=== PATIENT | female | born 1960 | race Asian ===

== ENCOUNTER 2016-09-28 01:03 | Inpatient (IN) | payer MEDICAID ==
[2016-09-28] VITALS (14 sets, daily range): BP systolic 106–157; BP diastolic 49–90; PULSE 60–76; RESP 14–28; O2SAT 95–100
[~2016-09-28] VITALS: Ht 157.5 cm; Wt 45.4 kg
[~2016-09-28 01:03] MED LIST: AMLO10TA3 PO; GABA-502 PO; HYDR-3825 PO; LEVO88TA28 PO; OXYC-474 PO; TOLT2TAB5 PO; VENL-57 PO
--- NOTE | 2016-09-28 01:06 | ED.REPORT ---
HPI-Extremity Problem Lower Date of Service Sep 28, 2016 ED Provider: Ham Guevara MD Patient is a 55 year old female with a history of metastatic colorectal cancer, hypertension, and anxiety who presents to the ED with tense swelling of her left lower extremity after a ground level fall 3 days ago. Patient states that she fell and her sister landed on her leg. Over the past 2 days she developed swelling and increased pain of this leg. The patient reports associated numbness of much of her leg. Patient went to [facility] ED [facility] for work- up and was ultimately sent tp [facility] for concern of compartment syndrome. Ultrasound for DVT was negative. EMS reports that the patient was very restless at [facility], often trying to leave her bed and walk around the department. She is not on any blood thinning medications. She denies fever, chills, chest pain, or shortness of breath. Nursing Notes Stated Complaint: LEG FRACTURE Nursing Notes Reviewed: Yes Allergies: Coded Allergies: No Known Allergies (Verified Allergy, Unknown, 04/22/16) Scheduled Amlodipine (Amlodipine) 10 Mg Tablet 10 MG PO DAILY Levothyroxine (Levoxyl) 88 Mcg Tablet 88 MCG PO DAILY Tolterodine Tartrate (Tolterodine Tartrate) 2 Mg Tablet 2 MG PO BID Venlafaxine ER (Venlafaxine ER) 37.5 Mg Cap.er.24h 225 MG PO BID Scheduled PRN Hydrocodone-Acetaminophen 7.5-325 mg (Hydrocodone-Acetaminophen 7.5-325 mg) 1 Each Tablet 1-2 TABLET PO Q6HRS PRN PRN PRN For Pain Oxycodone (Roxicodone) 5 Mg Tablet 7.5 MG PO Q4H PRN PRN For Pain General Time Seen by MD: 01:04 Chief Complaint Leg injury left Hx Obtained From: Patient, EMS Arrived By: Ambulance Onset Occurred: 2 days ago Symptom Duration: Since onset Caused by: Fall on ground Location: : Leg left Quality: Burning, Painful Severity: Current: Severe Severity: Maximum: Severe Recent Healthcare: Recent doctor visit Similar Sx Previous: No Past Medical History Past Medical History - metastatic colorectal cancer , with metastasis to left lower lobe (patient also reports metastasis to "female organs", but indication in records). Last local oncology note dated 04/22/2016 states plan for irinotecan-based combination therapy. - Glaucoma. - Possible Raynaud's phenomenon. - Hypertension. 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 Mother recently 10/15/2015 Ambulatory Status Independent Review of Systems Constitutional: Denies: Fever Musculoskeletal: Reports: Extremity pain, Extremity swelling Complete sys rev & neg: except as marked. Respiratory: Denies: Shortness of breath Cardiovascular: Denies: Chest pain Physical Exam Initial Vital Signs Vital Signs (First) Date Time Temp Pulse Resp B/P Pulse Ox O2 Delivery O2 Flow Rate FiO2 09/28/16 01:11 36.7 68 18 147/90 95 Initial VS: Reviewed Head / Eyes: Atraumatic, Normocephalic, PERRL ENT: Conjunctiva normal, No scleral icterus Neck: Supple, Full range of motion Upper Extremities: Vascular intact, Neuro intact Neurologic: Alert, Oriented Lower Extremity / Pelvis / MS: Vascular intact Left Leg / Calf: Positive: Neuro deficit present, Swelling present..., Tenderness present... Left lower extremity is tense and tender, including the gastrocnemius muscle and anterior tibial muscle. Anesthetic down to the foot. Distal sensation is lost. Distal pulses are intact. Changes consistent with compartment syndrome. Ankle / Foot: Vascular intact Left Foot: Positive: Neuro deficit present General/Constitutional: Awake, Alert Appearance / Presentation: Positive: Cachectic, Frail, Ill appearing/not toxic (chronically) Oriented but mildly agitated and difficult to orient to the needs of herself and of the units. Continues to try and get off the bed to walk around, picking at her IV. Respiratory / Chest: Breath sounds NL, Breath sounds = bilat, No respiratory distress, No rales, No rhonchi, No wheezing Cardiovascular: Heart rate NL, Regular rhythm, No gallop, No murmurs, No rubs Skin: Warm, Dry Neurologic: Oriented X3, Speech NL Interpretation & Diagnostics ECG Interpretation ECG Interpretation: Sinus rhythm, Rate 68 Nonspecific intraventricular conduction delay NS Borderline ST elevation, anterior leads Time: 01:45 Interpreted by: ED physician X-Ray Chest Interpretation Chest Xray Interpretation: Impression: No acute cardiopulmonary process. View: Portable Interpretation / Wet Read by: Wet read ED physician X-Ray Interpretation Xray Interpretation: Impression: Lateral left tibial table fracture, inferiorly displaced, with left fibula fracture. X-Ray Ordered: Tibia fibula left Interpretation / Wet Read by: Wet read ED physician Re-Eval/Medical Decision Med Decision/Clinical Course 55-year-old with overt compartment syndrome and the tibialis anterior compartment, and apparent posterior compartment swelling as well. There is distal anesthesia resulting also. She is seen promptly by orthopedic surgery and taken to the operating room. Our med on motor for measuring pressures was not operable today, but her palpation exam is unequivocal. Source of Hx: Old records Re-Evaluation/Progress #1: Time of Eval: 01:20 Re-Evaluation/Progress Note: Patient continues to want to leave the bed and has to be constantly reminded not to move. Unable to get pressure reading. Re-Evaluation/Progress #2: Time of Eval: 01:27 Re-Evaluation/Progress Note: Informed the patient of the plan for hospital admission and urgent OR. Patient understands and agrees with this plan. All questions were addressed. Re-Evaluation/Progress #3: Time of Eval: 02:00 Re-Evaluation/Progress Note: Dr. Wu is present in the ED. He will take the patient to the OR. Consultation : Referral / Consult Name: Jomar Wu DO Consulted With: Orthopedic Call Returned at: 01:26 Extension Worker: Will see patient, Agrees with eval, Agrees with plan, Requested OR Note: Spoke with Dr. Wu, orthopedic surgeon, about the patient's case. Unable to get a reading of pressure. He agrees to take the patient to the OR and accepts patient for admission. Counseled Regarding: Diagnosis, Lab results, Need for admission Discharge & Departure Impression: Primary Impression: Compartment syndrome of left lower extremity Encounter type: initial encounter Qualified Code: T79.A22A - Traumatic compartment syndrome of left lower extremity, initial encounter Additional Impression: Tibial plateau fracture, left Encounter type: initial encounter Fracture type: closed Qualified Code: S82.142A - Displaced bicondylar fracture of left tibia, initial encounter for closed fracture Disposition: ADMITTED TO HOSPITAL Discharge Condition All VS Reviewed: Yes Condition: Stable Referrals: Tatyana Rodriguez (PCP) Scribe Attestation Portions of this note were transcribed by Barbie Barrera. I, Dr. Guevara personally performed the history, physical exam and medical decision-making; I reviewed and confirmed the accuracy of the information in the transcribed note. Signed by: Afua Samano, 09/28/2016 0207 copies to: Tatyana Rodriguez Christopher W MD Sep 28, 2016 01:06 Barbie Barrera Sep 28, 2016 01:30
[2016-09-28] MEDS ORDERED: 0.9% Sodium Chloride 1,000 ML IV ONE (01:28)
[2016-09-28] MEDS ORDERED: Lactated Ringer's 1,000 ML IV SCH (02:28)
[2016-09-28] MEDS ORDERED: Lactated Ringer's 500 ML IV PRN (02:28)
[2016-09-28] MEDS ORDERED: HYDROmorphone 1 mg/mL Inj IVPUSH PRN (02:30)
[2016-09-28] MEDS ORDERED: Ondansetron 2 mg/mL 2 mL Inj IVPUSH PRN ×2 (02:30→04:10)
[2016-09-28] MEDS ORDERED: EPHEDrine Sulfate 50 mg/mL Inj IVPUSH PRN (02:30)
[2016-09-28] MEDS ORDERED: MetoCLOpramide 5 mg/mL 2 mL Inj IVPUSH PRN (02:30)
[2016-09-28] MEDS ORDERED: Phenylephrine 10,000 mCg/mL Inj IVPUSH PRN (02:30)
[2016-09-28] MEDS ORDERED: Dexamethasone 4 mg/mL Inj IVPUSH PRN (02:30)
[2016-09-28] MEDS ORDERED: fentaNYL-PF 50 mCg/mL 2 mL Inj IVPUSH PRN (02:30)
--- NOTE | 2016-09-28 02:35 | PCM.HPANE ---
Patient Data Surgeon Admitting Provider:Jomar Wu DO Attending Provider:Jomar Wu DO Primary Care Physician:Tatyana Rodriguez Other Provider:Jessica Milan Anesthesia Reason for Visit Compartment Syndrome L Lower Leg Ht/WT & BMI Height (Feet): 5 Height (Inches): 2 Weight (Kilograms): 48 Body Mass Index Allergies Coded Allergies: No Known Allergies (Verified Allergy, Unknown, 04/22/16) Past Anesthesia History Anesthesia History: Denies:: Abnormal Airway, Anesthesia Reactions, Difficult Intubation, Fam Anesthesia Reaction, Fam Malignant Hypertherm, Malignant Hyperthermia Diabetes History Hx Diabetes?: No MRSA MRSA: No Medications Active Scripts Amlodipine 10 Mg [id number] Mg PO DAILY #30 TABLET Ref 0 Prov:Praful England MD 01/05/16 Reported Medications Oxycodone (Roxicodone)5 Mg Tablet7.5 Mg PO Q4H PRN For Pain Ref 0 04/10/16 Venlafaxine ER 37.5 Mg Cap.er.03d733 Mg PO BID Ref 0 04/10/16 Hydrocodone-Acetaminophen 7.5-325 mg 1 Each Tablet1-2 Tablet PO Q6HRS PRN PRN For Pain Ref 0 03/28/16 Tolterodine Tartrate 2 Mg Tablet2 Mg PO BID 11/21/15 Levothyroxine (Levoxyl)88 Mcg [id number] Mcg PO DAILY 30 Days Ref 0 02/20/15 Gabapentin 300 Mg [id number] Mg PO TID 30 Days Ref 0 02/19/15 History History of ENT Problems?: No HEENT History: Denies:: Abnormal Airway Cataracts Difficult Intubation Dysphagia Hearing Problem Sinus Problem Hx of Heart Problems?: No Cardiovascular History: Positive for:: Edema (LEGS) Hypertension Denies:: AICD Atrial Fibrillation Chest Pain Congestive Heart Failure Irregular Heartbeat Pacemaker Valvular Heart Disease Hx of Respiratory Problem?: No Respiratory History: Denies:: Asthma COPD Cough Dyspnea Hemoptysis Pneumonia Tuberculosis Hx Neurologic Problems?: Yes Neurological History: Positive for:: Dizziness Denies:: Alzheimer's Disease CVA Dementia Headaches Parkinson's Disease Seizures Hx of GI Problems?: Yes Gastrointestinal History: Positive for:: Gastrointestinal Bleeding (Rectal - HX of rectal CA with colon rescection/colostomy) Heartburn Rectal Bleeding Denies:: Cirrhosis Diverticulitis Gastroesphageal Reflux Hepatitis Hiatal Hernia Hx of Problems?: Yes Genitourinary History: Denies:: HX of Hemodialysis Kidney Stones Urinary Tract Infection Female Hx: Denies:: Currently Endometriosis Pelvic Inflammatory Problems with Breasts? Skin History: Positive for:: History Skin Disorders? (HX OF RASHES AND DRYNESS , PERINEAL RASH 05/29 PER MD) Hx Musculoskeletal Problems?: No Musculoskeletal History: Denies:: Back Injury Joint Replacement (Hip and ankle were left alone to heal naturally) Hx of Psycho/Social Problems?: Yes Psycho Social History: Positive for:: Anxiety Hx Depression Suicide Attempt (remote history per [facility]) Denies:: Bipolar Disorder Hx Surgeries?: Yes (colon resection/removal - colostomy) Hx Any Other Health Problems?: Yes Other History: Positive for:: Cancer (Rectal - plan today for a Right lung biopsy) Hospitalization Denies:: Thyroid Disease History Blood Transfusions: Positive for:: Blood Transfusions Denies:: Blood Transfuse Reaction Hx Diabetes: No Hx Alcohol Use: YesHx Substance Use: Yes (inhaled marijuana) Smoking Status: Current Every Day Smoker Have You Smoked inLast 12 mo: Yes Stop/Bang Risk Assessment Category Category 1A: Patient has history of documented sleep apnea, and HAS NOT received any narcotic, sedative or anesthesia administration during this stay. Category 1B: Patient has history of documented sleep apnea, and HAS received any narcotic , sedative or anesthesia administration during this stay Category 2: Patient has SUSPECTED Obstructive Sleep Apnea, and HAS received any narcotic , sedative or anesthesia administration during this stay. Category 3: Patient has SUSPECTED Obstructive Sleep Apnea and HAS NOT received narcotic, sedative or anesthesia administration during this stay. Category 4: Outpatient in Procedural Areas with known sleep apnea or who screen positive for High Risk via the STOP/BANG questionnaire. Exam Exam Vital Signs Vital Signs Date Time Temp Pulse Resp B/P Pulse Ox O2 Delivery O2 Flow Rate FiO2 09/28/16 02:26 36.7 76 18 160/89 98 Room Air 09/28/16 01:11 36.7 68 18 147/90 95 General Appearance: Alert, Oriented X3, Cooperative Lungs: Clear to Auscultation, Clear to Percussion Heart: Exam Unremarkable, Regular Rate/Rhythm Meds/Labs/Diagnostics Admission Meds Current Medications Lorazepam 0.5 mg 0.5 mg ONCE ONCE IVPUSH Last administered on 09/28/16t 01:38 ; Start 09/28/16 at 01:25; Stop 09/28/16 at 01:26; Status DC Sodium Chloride (Normal Saline) 1,000 ml @ 0 mls/hr Q0M ONCE IV Last administered on 09/28/16t 01:26; Start 09/28/16 at 01:28; Stop 09/28/16 at 01:31 ; Status DC Plan Impression Patient chart reviewed, patient interviewed and anesthestic plan with risks, benefits, and alternatives discussed, and informed consent obtained. NPO Status: 07/27 at 2300 Jeffrey Reddy MD Sep 28, 2016 02:35
--- NOTE | 2016-09-28 02:54 | HP ---
[address] [address] HISTORY AND PHYSICAL PATIENT: THO YADAV : 1960 MR#: [id number] ADMIT: 09/28/2016 JOB ID: [id number] CHIEF COMPLAINT: Left leg pain. HISTORY OF PRESENT ILLNESS: This is a 55-year-old female that was a transfer from [facility] for possible compartment syndrome. She states that she was bending over to pick something up about two days ago when her sister fell on her. She had some left knee and lower leg pain at that time, but was able to place some weight onto the left lower extremity. Over the last day, she has noted increasing pain and swelling, and thus presented to [facility] Emergency [facility]. She presented there at 1 p.m. today and states that around 2 p.m. noted even more progressive swelling. She now complains of numbness to most of her left lower leg from the calf down. She also states that her leg feels very tense and painful with any motion to the ankle or toes. Upon presentation to [facility], compartment measurements were attempted to be obtained by the emergency department staff, but the compartment monitor was unable to be utilized. With the clinical examination, the patient's anterior and posterior compartments were extremely tense, with a clinical diagnosis of compartment syndrome. PAST MEDICAL HISTORY: Metastatic colorectal cancer, anxiety, hypertension. PAST SURGICAL HISTORY: Resection of adenocarcinoma with partial colostomy, excision of uterine fibroids, bilateral salpingo-oophorectomy, appendectomy. FAMILY HISTORY: Noncontributory. SOCIAL HISTORY: The patient smokes daily. Denies any alcohol or illicit drug use. MEDICATIONS: Please see the electronic medical record for full list of the patient's medications. ALLERGIES: No known drug allergies. REVIEW OF SYSTEMS: The patient denies any fevers, sweats, chills, chest pain, short of breath nausea, vomiting, diarrhea. She complains mainly of left knee and lower leg pain with numbness as described in history of present illness. PHYSICAL EXAMINATION: General: The patient is mildly agitated and anxious. She is rocking back and forth in the hospital [facility], and is mobilizing at the hip and knee. HEENT: Normocephalic, atraumatic. Extraocular movements intact. Nares patent. Lungs: No audible wheezes. No overt signs of respiratory distress. Neuro: Cranial nerves 2-12 are intact. Extremities: On gross observation of the patient's left lower extremity, the patient demonstrates significant tense compartments both to the anterior and posterior compartments of the lower leg. There is significant tenderness to palpation with pain elicited with passive flexion and extension of the ankle and toes. The patient describes decreased sensation from about the mid calf distally to include the entire foot. The patient does demonstrate palpable dorsalis pedis and mildly palpable posterior tib pulse. There is tenderness to palpation also to the lateral tibial plateau, with a mild palpable effusion. DIAGNOSTIC STUDIES: Two views of the patient's left tib-fib was obtained, demonstrating a minimally displaced lateral tibial plateau split fracture as well as a fibular head fracture. IMPRESSION: 1. Left lateral tibial plateau and proximal fibular fracture. 2. Left leg compartment syndrome. PLAN: Discussed with the patient in length her diagnosis and treatment to be taken back emergently for fasciotomies of the left lower extremity to release the muscles of the anterolateral and both posterior compartments to the lower leg. I discussed with the patient following surgery, she will also have wound VAC in place and the skin will not be able to be closed. She will then require a repeat irrigation and debridement, with possible primary closure a few days following the surgery. She also understands that there is a possibility of also requiring skin grafting in order to close the wounds, but the patient's fracture will be also addressed at one of the definitive closure surgeries. The surgery tonight I explained to the patient is to address the emergent fasciotomies for her compartment syndrome. The patient understood the risks include, but not limited to, neurovascular injury, tendon injury, infection, failure to resolve the patient's preoperative symptoms, stiffness, persistent pain which will require further intervention. The patient had all questions answered. Consent was signed and placed in the chart. CHAMP
[2016-09-28] MEDS ORDERED: Sodium Biphos-Phos 133 mL Enema RECTAL PRN (04:10)
--- NOTE | 2016-09-28 04:11 | PCM.ANEP1 ---
Post Anesthesia Phase 1 PACU Phase 1 Assessment Vital Signs Vital Signs Date Time Temp Pulse Resp B/P Pulse Ox O2 Delivery O2 Flow Rate FiO2 09/28/16 02:26 36.7 76 18 160/89 98 Room Air 09/28/16 01:11 36.7 68 18 147/90 95 Anesthetic Administered: GA Level of Alertness: Sleeping, hard to arouse VICKERS's with Equal Strength: Yes Pain: No Nausea or Vomiting: No Airway Device: Lungs: Clear to Auscultation, Clear to Percussion Dermatome Level: Full Sensation Jeffrey Reddy MD Sep 28, 2016 04:10
--- NOTE | 2016-09-28 04:23 | PCM.ANEP2 ---
Post Anesthesia Evaluation ASA/CMS Post Anesthesia VS in Patient's Normal Range?: Yes Resp Stable; Airway Patent?: Yes CV Function & Hydration Stable: Yes Mental Status Recovered?: Yes Pain control Satisfactory?: Yes N/V Control Satisfactory?: Yes Jeffrey Reddy MD Sep 28, 2016 04:23
[2016-09-28] MEDS ORDERED: Lactated Ringer's 1,000 ML IV ONE (04:49)
--- NOTE | 2016-09-28 05:06 | NUR ---
post op received to room 1011. alert to person. reoriented place. oriented to time. patient keeps asking "why am i here?" "am i at [facility]?" placed on dorene alarm. left leg in saw wrap with knee immobilizer and wound vac. dressing extends to just below the toes. wound vac set at 125 cont suction. sanguinous drainage in container. patient rates pain as a 7 to left leg. fatigued. falls asleep easily. medicated with morphine 1 mg slow iv push. drinking water and juice. colostomy bag intact.
--- NOTE | 2016-09-28 05:21 | OP ---
[address] [address] OPERATIVE REPORT PATIENT: THO YADAV : 1960 MR#: [id number] ADMIT: 09/28/2016 JOB ID: [id number] DATE OF SURGERY: 09/28/2016 PREOPERATIVE DIAGNOSIS(ES): 1. Left lower leg compartment syndrome. 2. Left lateral tibial plateau fracture. POSTOPERATIVE DIAGNOSIS(ES): 1. Left lower leg compartment syndrome. 2. Left lateral tibial plateau fracture. PROCEDURE: 1. Left leg fasciotomies of the anterior, lateral, posterior superficial and posterior deep compartments. 2. Application of a DME wound VAC, with the wound VAC dressing applied to two separate operative wounds measuring each 20 x 5 cm in dimension. SURGEON: Jomar Wu D.O. ANESTHESIA: General. HISTORY: The patient is a 55-year-old female that fell when her sister fell on top of her about two days ago. She had left knee and leg pain that progressively worsened. She starts having increased swelling and numbness to the lower leg. Thus, she presented to [place] emergency department where she was seen and evaluated. While in the emergency department, they noticed progressive swelling and discussed the possibility of her developing compartment syndrome. They tried to have her transported to different hospitals and were unable to make contact, and thus finally were able to refer here to [facility]. Upon presentation, she demonstrated clinical signs of compartment syndrome. I discussed with the patient the risks, benefits, and indications to proceed with fasciotomy with likely application of wound VAC. I did discuss the need for likely repeat surgery in order for closure and possible skin grafting, and also for fixation of the lateral tibial plateau fracture that she also sustained. The patient understood the risks, benefits, and indications, had all questions answered. The consent was signed and placed on the chart. The patient had a palpable dorsalis pedis and trace posterior tib pulse in the emergency department. PROCEDURE IN DETAIL: The patient was brought to the operative room and placed supine on the operative table. Surgical time-out was performed. Everyone in the room was in agreement. After appropriate anesthesia was obtained, a left upper thigh tourniquet was applied. The patient's left foot demonstrated decreased perfusion compared to the contralateral foot. It was mildly dusky, and the pulses were less palpable than they were in the emergency department. Left lower extremity was then prepped and draped in a sterile fashion. The patient's anterior and lateral compartments were approached first with a longitudinal lateral incision measuring approximately 20 cm in length. This was placed along the length of the fibula. The fascia was immediately identified. A transverse incision was first made at the mid aspect of the incision to the fascia in order to identify the intervening septum between the anterior and the lateral compartments. The lateral compartment was then released with the fasciotomy extending both proximal and distal. Demonstrates significant herniation of the muscles from the lateral compartment. Next, the anterior fasciotomy was also performed in a similar fashion, resulting in an H-shape fasciotomy, decompressing both the anterior and lateral compartments. Again, the anterior muscles easily herniated from the fascia. The muscles were stimulated with electrocautery and demonstrated to be viable. The consistency and color was red. There was only some small tenuous areas to the anterior compartment that were mildly devitalized, but this was left to declare itself for possible debridement at one of her future surgeries. The anterior and lateral compartments were then compressible following the fasciotomies. Attention was then turned towards the medial aspect of the tibia in order to decompress the posterior superficial and deep compartments. A longitudinal incision, measuring 20 cm in length, was made just 2 cm posterior to the posterior border of the tibia. Dissection was carried down to the fascia. Again, a longitudinal incision was then made and spread proximally and distally utilizing Metzenbaum scissors. A significant amount of muscle herniated from the incision. The muscle in the superficial compartment was found to be viable. It was demonstrated excellent consistency and was able to be stimulated with the electrocautery. The deep posterior compartment was next entered by elevating the posterior muscles off of the posterior aspect of the tibia. The fascia was entered and again a fasciotomy of the deep compartment was then performed. Again, excellent viable tissue was appreciable to the posterior compartment. Copious irrigation was then performed to both operative sites, and wound VAC sponges were then applied with a bridge to the anterior aspect of the skin in order to connect the two operative wounds. Both sponges utilized measured approximately 20 x 5 cm dimension. Excellent seal was then achieved. The patient was placed into a bulky noncompressive dressing and into a knee immobilizer. ESTIMATED BLOOD LOSS: 25 cc. COMPLICATIONS: None. DISPOSITION: The patient tolerated the procedure well. Anesthesia was reversed. The patient was transferred to the PACU for recovery. POSTOPERATIVE PLAN: The patient will be taken likely back to the OR on Thursday for a repeat irrigation and debridement with possible primary closure versus reapplication of a wound VAC, and/or skin grafting. Open reduction and internal fixation of the lateral tibial plateau will also be performed at the definitive closure or grafting surgery, which will take place next week. CHAMP
--- NOTE | 2016-09-28 06:05 | PCM.CHPMED ---
Subjective Date of Service: Sep 28, 2016 Provider requesting consult: Jomar Wu DO Primary Physician: Admitting Physician: Jomar Wu DO Primary Care Physician: Tatyana Rodriguez Attending Physician: Jomar Wu DO Chief Complaint: Chief Complaint: Left leg pain History of Present Illness: 55yoF with PMH remarkable for stage three colorectal adenocarcinoma with partial colostomy who presents with 3 days of left leg pain, swelling, and numbness. Reports from orthopedic surgery state that the patient was bending over to pick something up off the floor when her sister fell on her. The patient reports that she had some left lower extremity pain immediately after the injury however she was able to bare weight on the leg. Today the patient had notably worse pain and swelling and presented to [facility] in [facility]. The patient was transferred to [facility] for compartment syndrome requiring fasciotomy. Prior to being taken to surgery the patient was complaining of numbness with pain made worse with any active movement of the extremity. In the [facility] ED the compartment monitor was unable to be utilized and so given the clinical presentation the patient was diagnosed with compartment syndrome and taken for fasciotomy by orthopedic surgery. Review of Systems: Constitutional: Denies: Chills, Fever, Sweats Eyes: Denies: Pain, Vision Changes ENT: Reports: Throat Pain (after surgery) Cardiovascular: Denies: Chest Pain, SOB on Exertion Respiratory: Denies: Cough, Shortness of Breath Gastrointestinal: Denies: Diarrhea, Nausea, Vomiting Genitourinary: Denies: Dysuria, Hematuria Musculoskeletal: Reports: Ankle Pain, Knee Pain, Swelling Skin: Reports: Redness Neurological: Reports: Difficulty Walking Psychologic: Reports: Anxiety, Depression PMH Past Medical History metastatic stage 3 colorectal adenocarcinoma hypertension anemia hypothyroidism peripheral neuropathy anxiety and depression overactive bladder, stress incontinence chronic pelvic pain Surgical History partial colectomy with colostomy right hip ORIF excision of uterine fibroids bilateral salpingo-oophorectomy appendectomy eye surgery 1965 Home Medications Nortriptyline 10mg daily Amlodipine 10mg Gabapentin 600mg TID Levothyroxine 88mcg daily Venlafaxine 187.5mg daily AM and 37.5mg daily PM Tolterodine 2mg BID Oxycodone 10mg every 4-6 hours Clonazepam 0.5mg BID Vagifem 10mcg intravaginally Acetaminophen 325mg PRN Allergies: Coded Allergies: No Known Allergies (Verified Allergy, Unknown, 04/22/16) Family History Family History patient report no family history of cancer, however [facility] records indicate that her father had cancer Mother had COPD, CHF, DM Social History Hx Alcohol Use: YesHx Substance Use: Yes (inhaled marijuana)Hx Tobacco Use: Yes (6 CIGS/DAY) Smoking Status: Current Every Day Smoker Exam Vital Signs Vital Sign - Last Date Time Temp Pulse Resp B/P Pulse Ox O2 Delivery O2 Flow Rate FiO2 09/28/16 04:15 60 27 115/49 100 Simple Mask 10 09/28/16 04:05 37 Intake and Output 09/27/16 09/27/16 09/28/16 Cumulative From/Thru 15:00 23:00 07:00 09/28/16 01:11 - 09/28/16 02:00 Intake Total 2000 ml 2000 ml Balance 2000 ml 2000 ml Intake IV Total 2000 ml 2000 ml General: Cooperative, Mild Distress, Other (seen in PACU patient is quiet obtunded and sleepy) Head: Normal Eyes: PERRLA, EOMI, Scleral Anicteric Nose: Mucous Membr Moist/[place] Mouth: Mouth Normal, Mucous Membr Moist/[place] Neck: Supple, No Thyromegaly Chest & Lungs: Clear to auscultation & percussion, No adventitious breath sounds Cardiovascular: Regular Rate/Rhythm, Normal S1, Normal S2, No Murmurs/Rubs/ Gallops Pulses: NL carotid, radial, femoral, DP, PT Abdomen: Non-tender, Non-distended, No hepatosplenomegaly, Normoactive bowel tones, Ostomy Genitourinary: [place] Present Musculoskeletal: Other (LLE with bandaging from thigh to ankle with brace and wound vac in place) Extremities: No cyanosis/clubbing/edma bilat, Warm, No Edema Neurological: Cranial Nerves 2-12 Intact Lab and Diagnostics X-Rays, CTs and MRIs Preliminary XRay of LLE shows left lateral tibial plateau fracture and left proximal fibular head fracture Assessment & Plan Assessment 55yoF with PMH remarkable for stage three colorectal adenocarcinoma with partial colostomy who presents with 3 days of left leg pain, swelling, and numbness, currently being treated with emergent fasciotomy for left lower leg compartment syndrome. 1. Acute Left Lower Extremity Compartment Syndrome - emergent fasciotomy and will likely require several more surgeries over the coming days - orthopedic surgery following - Cefazolin 2g q8hrs - pain management Percocet, Morphine, Dilaudid and Fentanyl available per orthopedics 2. acute left lateral tibial plateau fracture - orthopedic surgery following - pain management Percocet, Morphine, Dilaudid and Fentanyl available per orthopedics 3. acute Proximal left fibular head fracture - orthopedic surgery following - pain management Percocet, Morphine, Dilaudid and Fentanyl available per orthopedics 4. History of Stage III colorectal adenocarcinoma - previously treated with neoadjuvant chemoradiation followed by APR and colostomy with additional chemotherapy with FULFOX - continue to follow up with Dr. Esparza as outpatient 5. peripheral neuropathy, chronic - gabapentin 600mg TID - nortriptyline 10mg HS [facility] records indicate may be BID dosing however patient is too sedated to confirm 6. HTN, chronic - Amlodipine 10mg daily 7. Anxiety and Depression, chronic - Effexor 225mg q day - nortriptyline 10mg HS [facility] records indicate may be BID dosing however patient is too sedated to confirm 8 Hypothyroidism, chronic - Levothyroxine 88mcg daily 9. stress incontinence, chronic - nortriptyline 10mg HS [facility] records indicate may be BID dosing however patient is too sedated to confirm - Tolterodine 2mg BID GI: Zofran, Reglan, Phenergan available PRN Bowel Regimen - Dulcolax, Miralax, Senna, Fleets available PRN DVT prophylaxis : Lovenox 40mg SQ daily Disposition: Patient was admitted to the orthopedic team with likely length of stay greater than 2 midnights. Patient will likely need SNF placement for extensive rehabilitation. Problems: Pain Evaluation: Adequate Pain Control GI Prophylaxis: H2 guero VTE Prophylaxis Indicated: Meets Criteria for Anticoag Therapy VTE Prophylaxis: Sub-Q Enoxaparin Attending Statement The patient was seen and examined together with house staff on 09/28/2016 and I agree with the history, exam and plan as outlined in the note above. SILVERIO MELGAR DO Sep 28, 2016 05:24 Breonna Tyler DO Sep 28, 2016 06:18
--- NOTE | 2016-09-28 06:27 | NUR ---
med rec - teddy patient unclear about medications. plan to fax [employer] gold run for list patient states she has a green pol form on the fridge at home. placed a request for family to bring in on white board. Addendum: 09/28/16 at 1203 by LENORE SERRANO RN MED REC [place] faxed request in [place]. [facility] is closed at this time. Follow-up tomorrow.
--- NOTE | 2016-09-28 07:35 | DRSVH ---
PROCEDURE: X-RAY LEFT TIBIA/FIBULA, TWO VIEWS ([id number]) INDICATIONS: compartment syndrome after fall TECHNIQUE: 2 views of the tibia and fibula were acquired. COMPARISON: None. FINDINGS: Bones: Mildly displaced fracture of the lateral tibial plateau is present, with articular surface ext ension to the knee joint. Soft tissues: No suspicious soft tissue calcifications or masses. IMPRESSION: Lateral tibial plateau fracture. Dictated by: Lety Hartmann M.D. on 09/28/2016 at 7:32 Approved by: Lety Hartmann M.D. on 09/28/2016 at 7:33
--- NOTE | 2016-09-28 07:36 | DRSVH ---
PROCEDURE: X-RAY CHEST ONE VIEW, PORTABLE ([id number]) INDICATIONS: compartment syndrome after fall TECHNIQUE: One view of the chest was acquired. COMPARISON: [facility], CR, XR CHEST 1VW (PORTABLE), 04/22/2016, 14:05. [facility], CR, XR CHEST 1VW (PORTABLE), 04/22/2016, 11:58. FINDINGS: Surgical changes and devices: None. Lungs and pleura: No pleural effusions or pneumothorax. Lungs are clear. Mediastinum: Mediastinal contours appear normal. Heart size is normal. Bones and chest wall: No suspicious bony lesions. Overlying soft tissues appear unremarkable. IMPRESSION: No acute process. Dictated by: Lety Hartmann M.D. on 09/28/2016 at 7:33 Approved by: Lety Hartmann M.D. on 09/28/2016 at 7:34
[2016-09-28] MEDS ORDERED: 0.9% Sodium Chloride 250 ML ONE (07:57)
[2016-09-28] MEDS: Sodium Chloride LOK Flush 10 mL Syringe IV SCH ×3 (08:06→23:33)
[2016-09-28] MEDS: CeFAZolin Inj 2 GM in IV Premix 1 EACH IV SCH ×2 (08:06→15:17)
[2016-09-28] MEDS: Venlafaxine XR 75 mg ER24 Capsule PO SCH (08:07)
[2016-09-28] MEDS: Tolterodine ER 2 mg ER24 Capsule PO SCH ×2 (08:07→21:12)
[2016-09-28] MEDS ORDERED: Influenza (Adult) Vaccine 0.5 mL Syringe IM ONE (08:30)
[2016-09-28] MEDS: oxyCODONE-Acetamin 5-325 mg Tablet PO PRN ×5 (08:31→23:32)
[2016-09-28] MEDS: Senna-Docusate 8.6-50 mg Tablet PO SCH ×2 (08:31→21:12)
[2016-09-28 09:08] LABS: BASOPHILS % (AUTO) 0.3 % (0-3); EOSINOPHILS % (AUTO) 0.6 % (0-5); MONOCYTES % (AUTO) 7.9 % (4-12); Mean Corpuscular Hemoglobin 32.7 pg (27.0-35.0); NEUTROPHILS % (AUTO) 81.9 % (40-74); Platelet Count 247 bil/L (150-400)
--- NOTE | 2016-09-28 09:34 | DRSVH ---
PROCEDURE: CT KNEE LEFT W/O CONTRAST ([id number]) INDICATIONS: tibial plateau fracture TECHNIQUE: Noncontrast 1-1.5 mm axial sections acquired from the mid-patella to the proximal tibia, with coronal and sagittal reformats. COMPARISON: [facility], CR, XR TIBIA FIBULA 2VW LT, 09/28/2016, 1:24. FINDINGS: Image quality: Excellent. Bones: There is a comminuted moderately displaced fracture of the lateral tibial plateau, predominant ly posteriorly with extension to the tibial spines anteriorly and posteriorly. There is mild angulati on of the posterior aspect of the lateral tibial plateau, with roughly 3-4 mm of depression of the la teral tibial plateau. There is a mildly displaced comminuted fibular head fracture. Soft tissues: Soft tissue gas is present both medially and laterally, indicating an open fracture. A knee joint effusion is present. IMPRESSION: 1. Tibial plateau fracture as above. 2. Fibular head fracture. 3. Knee joint effusion. Dictated by: Lety Hartmann M.D. on 09/28/2016 at 9:30 Approved by: Lety Hartmann M.D. on 09/28/2016 at 9:33
[2016-09-28] MEDS ORDERED: Propofol 10,000 mCg/mL 20 mL Inj ONE (11:17)
[2016-09-28] MEDS ORDERED: fentaNYL-PF 50 mCg/mL 2 mL Inj ONE (11:24)
[2016-09-28] MEDS ORDERED: Ondansetron 2 mg/mL 2 mL Inj ONE (11:26)
--- NOTE | 2016-09-28 11:47 | PCM.PNORTH ---
Subjective Date of Service: Sep 28, 2016 Visit Information: Reason for Visit Compartment Syndrome L Lower Leg Surgery/Surgery Date Post-Op Day # Date of Admission: Sep 28, 2016 at 01:51 Hospital Day # Subjective Pt s/e, states that pain has improved significantly since the surgery this AM. Still has numbness to the foot but states that she has a history of peripheral neuropathy. Objective Exam Objective Gen - alert, NAD Ext - wound vac intact to left lower extremity 09/01 the cannister of the vac is full with serosanguinous d/c Seal intact Improved circulation to the foot and toes with cap repill 2.5sec except for great toe which is a little more sluggish +PF/DF ankle without difficulty Vital Signs and I/O Vital Sign - Last Date Time Temp Pulse Resp B/P Pulse Ox O2 Delivery O2 Flow Rate FiO2 09/28/16 09:06 72 16 96 Room Air 09/28/16 08:26 36.4 145/73 09/28/16 04:26 10 Intake and Output 09/27/16 09/27/16 09/28/16 Cumulative From/Thru 15:00 23:00 07:00 09/28/16 01:11 - 09/28/16 06:12 Intake Total 2300 ml 2300 ml Output Total 20 ml 20 ml Balance 2280 ml 2280 ml Intake IV Total 2300 ml 2300 ml Output Urine Total 20 ml 20 ml Lab & Micro Results Laboratory Tests Test 09/28/16 08:55 White Blood Count 10.2th/mm3 (3.8-10.1) Red Blood Count 3.42mil/mm3 (3.90-5.20) Hemoglobin 11.2g/dL (12.0-15.6) Hematocrit 31.8% (35.0-46.0) Mean Corpuscular Volume 93.0fL (81-100) Mean Corpuscular Hemoglobin 32.7pg (27.0-35.0) Mean Corpuscular Hemoglobin Concent 35.2% (32.0-37.0) Red Cell Distribution Width 12.3% (12.3-15.4) Platelet Count 247bil/L (150-400) Neutrophils (%) (Auto) 81.9% (40-74) Lymphocytes (%) (Auto) 8.9% (14-46) Monocytes (%) (Auto) 7.9% (4-12) Eosinophils (%) (Auto) 0.6% (0-5) Basophils (%) (Auto) 0.3% (0-3) Prothrombin Time 10.7sec (8.1-12.5) Prothromb Time International Ratio 1.00ratio Activated Partial Thromboplast Time 25.8sec (22.8-33.0) Sodium Level 141mEq/L (134-144) Potassium Level 4.2mEq/L (3.5-5.2) Chloride Level 102mEq/L (97-108) Carbon Dioxide Level 24mmol/L (18-29) Blood Urea Nitrogen 17mg/dL (6-24) Creatinine 0.74mg/dL (0.57-1.00) Estimat Glomerular Filtration Rate 116mL/min (>59) Glucose Level 163mg/dL (60-99) Calcium Level 8.5mg/dL (8.5-10.1) Total Bilirubin 0.3mg/dL (0.0-1.2) Aspartate Amino Transf (AST/SGOT) 39U/L (0-50) Alanine Aminotransferase (ALT/SGPT) 15U/L (0-32) Alkaline Phosphatase 62U/L (25-150) Total Creatine Kinase 2291U/L (21-215) Total Protein 6.1g/dL (6.4-8.4) Albumin 3.8g/dL (3.4-5.0) Result Diagram: 09/28/1685409/28/16854 SURGICAL WOUND : Drain Location Body Site: LEG Wound Drainage Type: Wound Vac Assessment & Plan Impression 1) POD#1 s/p left leg fasciotomies 2) Left leg compartment syndrome 3) Left lateral tibial plateau fracture Problems: Plan 1) Discussed R/B/A/I with patient for future surgeries as well as plan for continued treatment -To OR thursday afternoon for repeat I/D and partial closure with reapplication of wound vac -To OR for repeat I/D and stsg to any remaining open areas as well as ORIF of left lateral tibial plateau Consent for thursday surgery signed and placed on chart after all questions answered 2) NWB L LE 3) D/C planning as pt will need wound vac for 5 days after stsg is performed VTE Prophylaxis: Sub-Q Enoxaparin Jomar Wu DO Sep 28, 2016 11:47
--- NOTE | 2016-09-28 15:35 | NUR ---
POST-OP PROGRESS Percocet 1 tab PO has been effective for pain control. Patient stated that her pain is 0/10 at rest after pain medication administration. Tolerating liquids PO and her diet fairly. Denies nausea. No emesis noted. Denies SOB. Woundvac is CDI and functioning without any problems. Sero-sanguinous output noted. LLE in a knee immobilizer. IFC intact and draining to yellow colored UO. Patient is alert and oriented to person, place and time but has periods of forgetfulness/confusion. Confusion is present on admit. Per her family patient can be forgetful. She has been using her call light appropriately and has not attempted to get OOB on her own. Numbness noted on her toes, which was present on admit. Per patient she also has peripheral neuropathy. Capillary refill WNL, sluggish on the great toe. Ortho is aware (Pls. refer to Ortho notes). + DP pulse via Doppler. Care continues. Addendum: 09/28/16 at 1835 by LENORE SERRANO RN WOUNDVAC OUTPUT Unable to accurately measure woudvac output for this shift. Woundvac output is 350 ml since arrival to the floor yesterday.
[2016-09-28] MEDS: hydrOXYzine Pamoate 25 mg Capsule PO PRN (23:32)
[2016-09-29 00:29] VITALS: BP 132/67; PULSE 75; RESP 20; O2SAT 100
[2016-09-29] MEDS: oxyCODONE-Acetamin 5-325 mg Tablet PO PRN ×5 (02:56→22:23)
[2016-09-29 05:30] VITALS: BP 111/65; PULSE 73; RESP 16; O2SAT 95
--- NOTE | 2016-09-29 05:39 | NUR ---
Pain / Circulation Pain well controlled with Percocet prn; pt states pain is low until attempt made to move leg. Pain is increased with passive stretch to ankle, voluntary movement of foot is limited. Pulse strong and palpable, cap refill brisk, toes warm. Hourly rounding ongoing.
[2016-09-29 06:11] LABS: BASOPHILS % (AUTO) 0.5 % (0-3); EOSINOPHILS % (AUTO) 2.4 % (0-5); MONOCYTES % (AUTO) 7.7 % (4-12); Mean Corpuscular Volume 95.6 fL (81-100); NEUTROPHILS % (AUTO) 76.7 % (40-74); Platelet Count 219 bil/L (150-400)
[2016-09-29] MEDS: hydrOXYzine Pamoate 25 mg Capsule PO PRN ×4 (06:39→22:21)
[2016-09-29 07:59] VITALS: BP 107/64; PULSE 81; RESP 16; O2SAT 99
[2016-09-29] MEDS: Tolterodine ER 2 mg ER24 Capsule PO SCH ×2 (08:00→21:22)
[2016-09-29] MEDS: Venlafaxine XR 75 mg ER24 Capsule PO SCH (08:00)
--- NOTE | 2016-09-29 08:00 | PCM.PNORTH ---
Subjective Date of Service: Sep 29, 2016 Visit Information: Reason for Visit Compartment Syndrome L Lower Leg Surgery/Surgery Date Post-Op Day # Date of Admission: Sep 28, 2016 at 01:51 Hospital Day # Subjective Found patient awake and alert and well positioned in bed with no significant complaints of pain. Patient describes a ground-level fall at her home on 2016 at which time her sister tripped over her and fell on top of her causing her leg injury. Patient presented to the ED with complaints of swelling, tightness and pain at the left lower extremity. Patient states she is under treatment with chemotherapy and has quotes chemo brain" with some difficulty in understanding and comprehending. We have discussed this morning that she has 2 more planned returns to the operating room the first of which will be a repeat I &D of the left leg with partial closure and wound VAC placement on 09/30/2016 and then the second OR planned for closure with skin graft and ORIF of the tibial plateau fracture on 10/02/2016. Patient is pleasant and receptive to this treatment. Postop General: No Complaints, No Shortness of Breath, No Chest Pain Pain Management: PO, IV Push Objective Exam Objective Orientation: Alert and oriented 3 and pleasant. Dressing: Interoperative dressing is clean dry and intact. Wound: Wound is not observed today. Compartments: Compartments at thigh appears soft and nontender. Lower extremity compartments appear soft with wound VAC and dressing in place. Mobility/sensation: Patient does have toe wiggle and sensation at left lower extremity but reports this is reduced from her function and sensation at the left lower extremity prior to her ground-level fall with subsequent compartment syndrome. Patient also reports some previous peripheral neuropathy of undescribed origin. Abduction wedge: Absent VAL hose: Absent Mcpherson: Present and working Drain: Wound VAC in place and working at the left lower extremity Gait: No gait with physical therapy and as of this time. Vital Signs and I/O Vital Sign - Last Date Time Temp Pulse Resp B/P Pulse Ox O2 Delivery O2 Flow Rate FiO2 09/29/16 05:30 37.0 73 16 111/65 95 Room Air 09/28/16 04:26 10 Intake and Output 09/28/16 09/28/16 09/29/16 Cumulative From/Thru 15:00 23:00 07:00 09/28/16 01:11 - 09/29/16 05:30 Intake Total 758 ml 800 ml 3858 ml Output Total 1575 ml 650 ml 2245 ml Balance -817 ml 150 ml 1613 ml Intake Oral 618 ml 800 ml 1418 ml IV Total 140 ml 2440 ml Output Urine Total 1225 ml 650 ml 1895 ml Stool Total 0 ml 0 ml Drainage Total 350 ml 350 ml # Bowel Movements 0 0 Lab & Micro Results Laboratory Tests Test 09/28/16 08:55 09/29/16 05:33 White Blood Count 10.2th/mm3 (3.8-10.1) 5.5th/mm3 (3.8-10.1) Red Blood Count 3.42mil/mm3 (3.90-5.20) 3.41mil/mm3 (3.90-5.20) Hemoglobin 11.2g/dL (12.0-15.6) 10.9g/dL (12.0-15.6) Hematocrit 31.8% (35.0-46.0) 32.6% (35.0-46.0) Mean Corpuscular Volume 93.0fL (81-100) 95.6fL (81-100) Mean Corpuscular Hemoglobin 32.7pg (27.0-35.0) 32.0pg (27.0-35.0) Mean Corpuscular Hemoglobin Concent 35.2% (32.0-37.0) 33.4% (32.0-37.0) Red Cell Distribution Width 12.3% (12.3-15.4) 12.5% (12.3-15.4) Platelet Count 247bil/L (150-400) 219bil/L (150-400) Neutrophils (%) (Auto) 81.9% (40-74) 76.7% (40-74) Lymphocytes (%) (Auto) 8.9% (14-46) 12.5% (14-46) Monocytes (%) (Auto) 7.9% (4-12) 7.7% (4-12) Eosinophils (%) (Auto) 0.6% (0-5) 2.4% (0-5) Basophils (%) (Auto) 0.3% (0-3) 0.5% (0-3) Prothrombin Time 10.7sec (8.1-12.5) Prothromb Time International Ratio 1.00ratio Activated Partial Thromboplast Time 25.8sec (22.8-33.0) Sodium Level 141mEq/L (134-144) 143mEq/L (134-144) Potassium Level 4.2mEq/L (3.5-5.2) 4.0mEq/L (3.5-5.2) Chloride Level 102mEq/L (97-108) 102mEq/L (97-108) Carbon Dioxide Level 24mmol/L (18-29) 29mmol/L (18-29) Blood Urea Nitrogen 17mg/dL (6-24) 13mg/dL (6-24) Creatinine 0.74mg/dL (0.57-1.00) 0.68mg/dL (0.57-1.00) Estimat Glomerular Filtration Rate 116mL/min (>59) 128mL/min (>59) Glucose Level 163mg/dL (60-99) 102mg/dL (60-99) Calcium Level 8.5mg/dL (8.5-10.1) 8.4mg/dL (8.5-10.1) Total Bilirubin 0.3mg/dL (0.0-1.2) Aspartate Amino Transf (AST/SGOT) 39U/L (0-50) Alanine Aminotransferase (ALT/SGPT) 15U/L (0-32) Alkaline Phosphatase 62U/L (25-150) Total Creatine Kinase 2291U/L (21-215) 9414U/L (21-215) Total Protein 6.1g/dL (6.4-8.4) Albumin 3.8g/dL (3.4-5.0) Result Diagram: 09/29/1653209/29/16532 General Appearance: Alert, Oriented X3, Cooperative, No Acute Distress Extremities: No Compartment Syndrom Noted (patient recovering from compartment syndrome with fasciotomies performed on 09/28/2016), Thigh & Calf Soft/Nontender Postop Sensory Motor: Distal Motor Intact (patient reports distal motor test this morning reveals some decrease in motor function at the left lower extremity per her baseline), Movement in Toes (patient reports this morning that on testing she notices a decrease in her mobility at the left lower extremity distally in the toes per her baseline), Distal Sensation Intact ( patient notes this morning that she has decrease in sensation at the left lower extremity toes per her normal baseline.) SURGICAL WOUND : Drain Location Body Site: LOWER LEG Wound Drainage Type: Wound Vac Catheters: Urethral 2 Way Mcpherson Assessment & Plan Impression Patient is a 55-year-old female who suffered a ground-level fall at her home on 09/28/2016 and at the same as her sister fell on top of her causing her left tibial plateau fracture with subsequent compartment syndrome. Patient is currently under treatment with chemotherapy and states she has difficulty comprehending certain things. Nursing staff describes "chemo brain". Patient has undergone a left lower extremity fasciotomy on 09/28/2016 and has 2 returns to the operating room planned for Thursday and of this week. Problems: Plan Postop day # 1 from left lower extremity fasciotomy performed on 09/28/[address] Jomar Wu. This was secondary to compartment syndrome which was secondary to left tibial plateau fracture suffered on 09/28/2016. Weight bearing status: Nonweightbearing bilaterally at this time. Mobility aid: None Immobilization: Left knee immobilizer maintained on in place at all times. Precautions: Strict nonweightbearing at the left lower extremity with elevation of the leg if possible Physical therapy: No physical therapy or occupational therapy is ordered as of this time per Dr. Jomar Wu. Pain control: Maintain current pain control as needed. DVT prophylaxis: SCDs at the right lower extremity with Lovenox 40 mg subcutaneous daily. Wound care: Keep wound and dressing clean dry and intact Infectious DZ: None Mcpherson: Present and working Dressing: Interoperative dressing is clean dry and intact Drain: Wound VAC in place at left lower extremity Abduction wedge: None VAL hose: None Nursing communication: Patient should remain nothing by mouth after midnight tonight on 09/29/2016. 2-week follow-up: TBD 6-week follow-up: TBD Discharge plan: TBD VTE Prophylaxis: Sub-Q Enoxaparin (40 mg subcutaneous daily.), SCDs (SCD and right lower extremity.) Krish Aguillon PA-C Sep 29, 2016 08:00
[2016-09-29] MEDS: Sodium Chloride LOK Flush 10 mL Syringe IV SCH ×2 (08:01→17:03)
[2016-09-29] MEDS: Polyethylene Glycol (PEG) 17 Gm Powder PO PRN (08:01)
[2016-09-29] MEDS: Senna-Docusate 8.6-50 mg Tablet PO SCH ×2 (08:12→21:22)
--- NOTE | 2016-09-29 10:01 | NUR ---
Social Work Screen Note: EMR reviewed. Patient is a 55 year old female admitted on 09/28/16 for compartment syndrome of left lower leg. Patient payer as [facility] Medicaid. Patient PCP as MD Rodriguez. Patient resides in [facility]. Emergency contact listed as sister Rosita, . Patient has wound vac and to undergo surgery for skin graft and ORIF of tibial plateau on Thursday or . Therapy ordered. SW to follow up following surgery to further assess needs for wound vac care and functional mobilities following therapy. SW to follow. PLAN: Possible HHC for wound vac management vs SNF, pending further surgery and therapy eval. SW will continue to follow to finalize discharge needs. David MARTINEZ
[2016-09-29] MEDS ORDERED: HYDR-656 PO (10:11)
[2016-09-29] MEDS ORDERED: CLON1TAB PO (10:11)
[2016-09-29] MEDS ORDERED: AMLO5TAB2 PO (10:33)
--- NOTE | 2016-09-29 11:33 | NUR ---
PT NOTE-- PT order received but patient scheduled for surgery tomorrow and ORIF on . Ortho progress note dated today states no PT/OT per Dr. Wu. Will await PT orders after ORIF on prior to initiating PT.
[2016-09-29 14:17] VITALS: BP 102/57; PULSE 80; RESP 16; O2SAT 99
--- NOTE | 2016-09-29 14:44 | NUR ---
spiritual care: routine lengthy conversational visit. pt explored insights about her medical condition and larger personal history/olinda/adventism history. Pt reflected on difficulties she's recently experienced including cancer treatment and ongoing bone weakness. She connected her current surgery needs to cancer and self blame, although she also described a new-found spirituality and connection with a jainism advent. Pt described her recent yazdanism as a source of hopefulness and emotional/spiritual health. pt agreeable for devotional/scripture material to explore more. Prayer.
--- NOTE | 2016-09-29 16:01 | NUR ---
MED REC/RADIATION Med rec received from [facility] in [place]. Med rec updated per the information that was obtained via [facility]. [facility] pharmacy called to verify if patient fills any meds there. Per Leonarda she has not filled anything there since 2015. Patient is scheduled for a shrink wrap-SVRT treatment today in [facility]. On hold at this time. Dr. Gerard and Krish Aguillon, PAC was made aware of this.
[2016-09-29 17:05] VITALS: BP 111/70; PULSE 84; RESP 16; O2SAT 100
--- NOTE | 2016-09-29 17:20 | NUR ---
POD1 Percocet 2 tabs PO and Vistaril 25 mg PO has been adequate for pain control. Patient rated her pain as 0/10 after her pain medication. Tolerating liquids PO and her diet well. Denies nausea. No emesis noted. Denies SOB. BR at this time. Dressing remains CDI. Woundvac is functioning without any issues noted. Immobilizer is in place. IFC is intact and draining to jermaine colored UO. Care continues.
--- NOTE | 2016-09-29 17:45 | PCM.PNMED ---
Subjective Date of Service Sep 29, 2016 Subjective reports some left leg pain but otherwise denies any new issues/complaints Exam Vital Signs Vital Sign - Last Date Time Temp Pulse Resp B/P Pulse Ox O2 Delivery O2 Flow Rate FiO2 09/29/16 17:05 36.7 84 16 111/70 100 Room Air 09/28/16 04:26 10 Intake and Output 09/28/16 09/28/16 09/29/16 Cumulative From/Thru 15:00 23:00 07:00 09/28/16 01:11 - 09/29/16 05:30 Intake Total 758 ml 800 ml 3858 ml Output Total 1575 ml 650 ml 2245 ml Balance -817 ml 150 ml 1613 ml Intake Oral 618 ml 800 ml 1418 ml IV Total 140 ml 2440 ml Output Urine Total 1225 ml 650 ml 1895 ml Stool Total 0 ml 0 ml Drainage Total 350 ml 350 ml # Bowel Movements 0 0 General: Alert, Cooperative, No Acute Distress Eyes: Scleral Anicteric Mouth: Mucous Membr Moist/[place] Neck: Supple Chest & Lungs: Chest Wall Normal, Clear to auscultation & percussion Cardiovascular: Regular Rate/Rhythm Abdomen: Non-tender, Non-distended, Normoactive bowel tones, Soft Extremities: Other (left leg with wound vac) Neurological: Grossly Neurologically Intact, Normal Speech IVs and Medications Medications Reviewed: Medications were reviewed in detail Lab and Diagnostics Result Diagram: 09/29/1653209/29/16 0533 Assessment & Plan 55yoF with PMH remarkable for stage three colorectal adenocarcinoma with partial colostomy who presents with 3 days of left leg pain, swelling, and numbness, currently being treated with emergent fasciotomy for left lower leg compartment syndrome. 1. Acute Left Lower Extremity Compartment Syndrome secondary to left tibial plateau fx - s/p left lower extremity fasciotomy on 09/28/2016 - has 2 returns to the operating room planned for Thursday and of this week. - on wound vac - further management per primary ortho team 2. acute left lateral tibial plateau and Proximal left fibular head fracture - further management per ortho - c/w supportive care 3. History of Stage III colorectal adenocarcinoma - previously treated with neoadjuvant chemoradiation followed by APR and colostomy with additional chemotherapy with FULFOX - currently undergoing radiation therapy. Radiation oncologist is Dr. Bolivar ( ext [phone]). Try to contact and update tomorrow (I wasn't able to connect today) 4. peripheral neuropathy, chronic - gabapentin 600mg TID - nortriptyline 10mg HS [facility] records indicate may be BID dosing however patient is too sedated to confirm 7. HTN, chronic - Amlodipine 10mg daily 8. Anxiety and Depression, chronic - Effexor 225mg q day - nortriptyline 10mg HS [facility] records indicate may be BID dosing however patient is too sedated to confirm 9. Hypothyroidism, chronic - Levothyroxine 88mcg daily 10. stress incontinence, chronic - nortriptyline 10mg HS [facility] records indicate may be BID dosing however patient is too sedated to confirm - Tolterodine 2mg BID Dispo: per primary ortho team GI Prophylaxis: H2 guero VTE Prophylaxis: Sub-Q Enoxaparin (40 mg subcutaneous daily.), SCDs (SCD and right lower extremity.) VTE Mechanical Devices: Intermittant Pneumatic CD Kai Gerard Sep 29, 2016 17:45
[2016-09-29 19:38] VITALS: BP 107/67; PULSE 78; RESP 20; O2SAT 98
[2016-09-29] MEDS: Magnesium Hydroxide 10 mL Oral Concentration PO PRN (21:23)
[2016-09-30] VITALS (9 sets, daily range): BP systolic 111–160; BP diastolic 66–80; PULSE 59–86; RESP 15–22; O2SAT 97–100
[2016-09-30] MEDS: Sodium Chloride LOK Flush 10 mL Syringe IV SCH ×3 (00:33→16:30)
[2016-09-30] MEDS: Lactated Ringer's 1,000 ML IV SCH ×3 (04:01→18:00)
[2016-09-30] MEDS: hydrOXYzine Pamoate 25 mg Capsule PO PRN ×4 (05:54→22:52)
[2016-09-30] MEDS: oxyCODONE-Acetamin 5-325 mg Tablet PO PRN ×4 (05:55→22:53)
--- NOTE | 2016-09-30 06:38 | NUR ---
Pain / Circulation Pain well controlled with Percocet and Vistaril prn. Pulse strong and palpable, cap refill brisk, toes warm. NPO since midnight for anticipated return to OR today. Hourly rounding ongoing.
[2016-09-30] MEDS ORDERED: fentaNYL-PF 50 mCg/mL 2 mL Inj ONE (08:00)
[2016-09-30] MEDS: Tolterodine ER 2 mg ER24 Capsule PO SCH ×2 (08:30→20:24)
[2016-09-30] MEDS: Senna-Docusate 8.6-50 mg Tablet PO SCH ×2 (08:30→20:24)
[2016-09-30] MEDS: Venlafaxine XR 75 mg ER24 Capsule PO SCH (08:30)
[2016-09-30] MEDS ORDERED: Ondansetron 2 mg/mL 2 mL Inj ONE (11:01)
[2016-09-30] MEDS ORDERED: MetoCLOpramide 5 mg/mL 2 mL Inj ONE (11:01)
[2016-09-30] MEDS ORDERED: Propofol 10,000 mCg/mL 20 mL Inj ONE (11:01)
--- NOTE | 2016-09-30 11:57 | PCM.PNMED ---
Subjective Date of Service Sep 30, 2016 Subjective Patient is resting in bed and has no current complaints. She is scheduled to go back to the OR today. Exam Vital Signs Vital Sign - Last Date Time Temp Pulse Resp B/P Pulse Ox O2 Delivery O2 Flow Rate FiO2 09/30/16 09:48 36.9 81 22 117/71 100 Room Air 09/28/16 04:26 10 Intake and Output 09/29/16 09/29/16 09/30/16 Cumulative From/Thru 15:00 23:00 07:00 09/28/16 01:11 - 09/30/16 06:46 Intake Total 1410 ml 400 ml 5668 ml Output Total 590 ml 1250 ml 4085 ml Balance 820 ml -850 ml 1583 ml Intake Oral 1340 ml 400 ml 3158 ml IV Total 70 ml 2510 ml Output Urine Total 390 ml 1250 ml 3535 ml Stool Total 0 ml 0 ml Drainage Total 200 ml 550 ml # Bowel Movements 0 Exam Constitutional: Appears comfortable and in no acute distress Head: Normocephalic atraumatic Chest: Clear to auscultation Cor: Regular rate and rhythm S1-S2 Abdomen: Soft nontender bowel sounds present Extremities: Left leg is wrapped and splinted,Right leg shows no pedal edema Neuro: Alert and oriented 3, motor strength is intact bilaterally Lab and Diagnostics Laboratory Tests 72 Hours Test 09/28/16 08:55 09/29/16 05:33 White Blood Count 10.2th/mm3 (3.8-10.1) 5.5th/mm3 (3.8-10.1) Red Blood Count 3.42mil/mm3 (3.90-5.20) 3.41mil/mm3 (3.90-5.20) Hemoglobin 11.2g/dL (12.0-15.6) 10.9g/dL (12.0-15.6) Hematocrit 31.8% (35.0-46.0) 32.6% (35.0-46.0) Mean Corpuscular Volume 93.0fL (81-100) 95.6fL (81-100) Mean Corpuscular Hemoglobin 32.7pg (27.0-35.0) 32.0pg (27.0-35.0) Mean Corpuscular Hemoglobin Concent 35.2% (32.0-37.0) 33.4% (32.0-37.0) Red Cell Distribution Width 12.3% (12.3-15.4) 12.5% (12.3-15.4) Platelet Count 247bil/L (150-400) 219bil/L (150-400) Neutrophils (%) (Auto) 81.9% (40-74) 76.7% (40-74) Lymphocytes (%) (Auto) 8.9% (14-46) 12.5% (14-46) Monocytes (%) (Auto) 7.9% (4-12) 7.7% (4-12) Eosinophils (%) (Auto) 0.6% (0-5) 2.4% (0-5) Basophils (%) (Auto) 0.3% (0-3) 0.5% (0-3) Prothrombin Time 10.7sec (8.1-12.5) Prothromb Time International Ratio 1.00ratio Activated Partial Thromboplast Time 25.8sec (22.8-33.0) Sodium Level 141mEq/L (134-144) 143mEq/L (134-144) Potassium Level 4.2mEq/L (3.5-5.2) 4.0mEq/L (3.5-5.2) Chloride Level 102mEq/L (97-108) 102mEq/L (97-108) Carbon Dioxide Level 24mmol/L (18-29) 29mmol/L (18-29) Blood Urea Nitrogen 17mg/dL (6-24) 13mg/dL (6-24) Creatinine 0.74mg/dL (0.57-1.00) 0.68mg/dL (0.57-1.00) Estimat Glomerular Filtration Rate 116mL/min (>59) 128mL/min (>59) Glucose Level 163mg/dL (60-99) 102mg/dL (60-99) Calcium Level 8.5mg/dL (8.5-10.1) 8.4mg/dL (8.5-10.1) Total Bilirubin 0.3mg/dL (0.0-1.2) Aspartate Amino Transf (AST/SGOT) 39U/L (0-50) Alanine Aminotransferase (ALT/SGPT) 15U/L (0-32) Alkaline Phosphatase 62U/L (25-150) Total Creatine Kinase 2291U/L (21-215) 9414U/L (21-215) Total Protein 6.1g/dL (6.4-8.4) Albumin 3.8g/dL (3.4-5.0) Result Diagram: 09/29/1653209/29/16532 X-Rays, CTs and MRIs PROCEDURE: CT KNEE LEFT W/O CONTRAST (10679) INDICATIONS: tibial plateau fracture TECHNIQUE: Noncontrast 1-1.5 mm axial sections acquired from the mid-patella to the proximal tibia, with coronal and sagittal reformats. COMPARISON: [facility], CR, XR TIBIA FIBULA 2VW LT, 09/28/2016, 1: 24. FINDINGS: Image quality: Excellent. Bones: There is a comminuted moderately displaced fracture of the lateral tibial plateau, predominantly posteriorly with extension to the tibial spines anteriorly and posteriorly. There is mild angulation of the posterior aspect of the lateral tibial plateau, with roughly 3-4 mm of depression of the lateral tibial plateau. There is a mildly displaced comminuted fibular head fracture. Soft tissues: Soft tissue gas is present both medially and laterally, indicating an open fracture. A knee joint effusion is present. IMPRESSION: 1. Tibial plateau fracture as above. 2. Fibular head fracture. 3. Knee joint effusion. Dictated by: Lety Hartmann M.D. on 09/28/2016 at 9:30 Approved by: Lety Hartmann M.D. on 09/28/2016 at 9:33 Assessment & Plan 55yoF with PMH remarkable for stage three colorectal adenocarcinoma with partial colostomy who presents with 3 days of left leg pain, swelling, and numbness, currently being treated with emergent fasciotomy for left lower leg compartment syndrome. 1. Acute Left Lower Extremity Compartment Syndrome secondary to left tibial plateau fx - s/p left lower extremity fasciotomy on 09/28/2016 - has 2 returns to the operating room planned for and of this week. - on wound vac - further management per primary ortho team 2. acute left lateral tibial plateau and Proximal left fibular head fracture - further management per ortho - c/w supportive care 3. History of Stage III colorectal adenocarcinoma - previously treated with neoadjuvant chemoradiation followed by APR and colostomy with additional chemotherapy with FULFOX - currently undergoing radiation therapy. Radiation oncologist is Dr. Bolivar ( ext [phone]). Try to contact and update tomorrow (I wasn't able to connect today) 4. peripheral neuropathy, chronic - gabapentin 600mg TID - nortriptyline 10mg HS [facility] records indicate may be BID dosing however patient is too sedated to confirm 7. HTN, chronic - Amlodipine 10mg daily 8. Anxiety and Depression, chronic - Effexor 225mg q day - nortriptyline 10mg HS [facility] records indicate may be BID dosing however patient is too sedated to confirm 9. Hypothyroidism, chronic - Levothyroxine 88mcg daily 10. stress incontinence, chronic - nortriptyline 10mg HS [facility] records indicate may be BID dosing however patient is too sedated to confirm - Tolterodine 2mg BID Dispo: per primary ortho team GI Prophylaxis: H2 guero VTE Prophylaxis: Sub-Q Enoxaparin (40 mg subcutaneous daily.), SCDs (SCD and right lower extremity.) VTE Mechanical Devices: Intermittant Pneumatic CD Time spent 30 minutes Chloe Tolbert MD Sep 30, 2016 11:57
--- NOTE | 2016-09-30 13:25 | NUR ---
NPO Pt is NPO awaiting surgery this afternoon Pt had 10/10 pain this a.m. Primary nurse administered IV push pain medication Pain reassessment 02/07
[2016-09-30] MEDS ORDERED: Lactated Ringer's 1,000 ML IV SCH (15:33)
[2016-09-30] MEDS ORDERED: Lactated Ringer's 500 ML IV PRN (15:33)
--- NOTE | 2016-09-30 15:33 | PCM.HPANE ---
Patient Data Surgeon Admitting Provider:Jomar Wu DO Attending Provider:Jomar Wu DO Primary Care Physician:Tatyana Rodriguez Other Provider:Jessica Milan Anesthesia Reason for Visit Compartment Syndrome L Lower Leg Ht/WT & BMI Height (Feet): 5 Height (Inches): 2.00 Weight (Kilograms): 47.600 Body Mass Index 19.47 Allergies Coded Allergies: No Known Allergies (Verified Allergy, Unknown, 04/22/16) Past Anesthesia History Anesthesia History: Denies:: Abnormal Airway, Anesthesia Reactions, Difficult Intubation, Fam Anesthesia Reaction, Fam Malignant Hypertherm, Malignant Hyperthermia Diabetes History Hx Diabetes?: No MRSA MRSA: No Medications Home Meds Incl Beta Delroy: No Reported Medications Amlodipine 5 Mg Tablet5 Mg PO DAILY HYPERTENSION Ref 0 09/29/16 Clonazepam ODT 1 Mg Tablet1-2 Mg PO HS PRN For Anxiety Ref 0 09/29/16 Venlafaxine ER 37.5 Mg Cap.er.[id number] Mg PO BID Ref 0 04/10/16 Hydrocodone-Acetaminophen 7.5-325 mg 1 Each Tablet1-2 Tablet PO Q6HRS PRN PRN For Pain Ref 0 03/28/16 Levothyroxine (Levoxyl)88 Mcg Sdbort29 Mcg PO DAILY 30 Days Ref 0 02/20/15 Discontinued Reported Medications hydrOXYzine Hcl (HydrOXYzine Hcl)25 Mg [id number] Mg PO HS BLADDER PAIN 09/29/16 Oxycodone (Roxicodone)5 Mg Tablet7.5 Mg PO Q4H PRN For Pain Ref 0 04/10/16 Tolterodine Tartrate 2 Mg Tablet2 Mg PO BID 11/21/15 Gabapentin 300 Mg [id number] Mg PO TID 30 Days Ref 0 02/19/15 Discontinued Scripts Amlodipine 10 Mg Bhghwn21 Mg PO DAILY #30 TABLET Ref 0 Prov:Praful England MD 01/05/16 History History of ENT Problems?: No HEENT History: Denies:: Abnormal Airway Cataracts Difficult Intubation Dysphagia Hearing Problem Sinus Problem Hx of Heart Problems?: Yes Cardiovascular History: Positive for:: Edema (LEGS) Hypertension Denies:: AICD Atrial Fibrillation Chest Pain Congestive Heart Failure Irregular Heartbeat Pacemaker Valvular Heart Disease Hx of Respiratory Problem?: Yes Respiratory History: Denies:: Asthma COPD Cough Dyspnea Hemoptysis Pneumonia Tuberculosis Other Resp Pertinent History: lung cancer Hx Neurologic Problems?: Yes Neurological History: Positive for:: Dizziness Seizures (on seroquel) Denies:: Alzheimer's Disease CVA Dementia Headaches Parkinson's Disease Hx of GI Problems?: Yes Gastrointestinal History: Positive for:: Gastrointestinal Bleeding (Rectal - HX of rectal CA with colon rescection/colostomy) Heartburn Rectal Bleeding Denies:: Cirrhosis Diverticulitis Gastroesphageal Reflux Hepatitis Hiatal Hernia Other GI Pertinent History: has colostomy Hx of Problems?: Yes Genitourinary History: Denies:: HX of Hemodialysis Kidney Stones Urinary Tract Infection Other Pertinent History: bladder leaking Female Hx: Denies:: Currently Endometriosis Pelvic Inflammatory Problems with Breasts? Skin History: Positive for:: History Skin Disorders? (HX OF RASHES AND DRYNESS , PERINEAL RASH 05/29 PER MD) Other Skin Pertinent History: just received wound vac to left leg in surgery Hx Musculoskeletal Problems?: Yes Musculoskeletal History: Positive for:: Musculoskeletal Trauma (fell 2 days ago. ) Denies:: Back Injury Joint Replacement (Hip and ankle were left alone to heal naturally) Hx of Psycho/Social Problems?: Yes Psycho Social History: Positive for:: Anxiety Hx Depression Suicide Attempt (remote history per PMH) Denies:: Bipolar Disorder Hx Surgeries?: Yes (colon resection/removal - colostomy, ) Hx Any Other Health Problems?: Yes Other History: Positive for:: Cancer (rectal) Hospitalization Thyroid Disease (on supplement) History Blood Transfusions: Positive for:: Accept Blood Products? Denies:: Blood Transfuse Reaction Blood Transfusions Hx Diabetes: No Hx Alcohol Use: Yes (one glass wine monthly)Hx Substance Use: Yes (marijuana smoke 3 joints a day) Smoking Status: Current Every Day Smoker Have You Smoked inLast 12 mo: YesApprox How Many Cigarettes/day: 5-7 cigarettes daily Stop/Bang Treated for Sleep Apnea?: No Do You Have a CPAP Machine?: No T-Tired: feel tired, fatigued: No O-Obsered: Observed not breath: No P-Blood Pressure: treated: Yes B- Body Mass Index > 35 kg/m2: No A- Age over 50: Yes N- Neck Large Circumference: No G- Gender Male: No HOLDEN Risk Assessment: Low Risk, <3 Yes Risk Assessment Category Category 1A: Patient has history of documented sleep apnea, and HAS NOT received any narcotic, sedative or anesthesia administration during this stay. Category 1B: Patient has history of documented sleep apnea, and HAS received any narcotic , sedative or anesthesia administration during this stay Category 2: Patient has SUSPECTED Obstructive Sleep Apnea, and HAS received any narcotic , sedative or anesthesia administration during this stay. Category 3: Patient has SUSPECTED Obstructive Sleep Apnea and HAS NOT received narcotic, sedative or anesthesia administration during this stay. Category 4: Outpatient in Procedural Areas with known sleep apnea or who screen positive for High Risk via the STOP/BANG questionnaire. Exam Exam Vital Signs Vital Signs Date Time Temp Pulse Resp B/P Pulse Ox O2 Delivery O2 Flow Rate FiO2 09/30/16 15:06 36.4 69 20 111/66 99 Room Air 09/30/16 09:48 36.9 81 22 117/71 100 Room Air General Appearance: Oriented X3 HEENT/AIRWAY: MP 2 Lungs: Normal Air Movement Heart: Regular Rate/Rhythm Meds/Labs/Diagnostics Admission Meds Current Medications Lactated Ringer's (Lr) 1,000 ml @ 120 mls/hr Q8H20M IV Last administered on 15:11; Start 09/30/16 at 05:00; Stop 09/30/16 at 13:19; Status DC Nicotine (Nicoderm 21 mg/ 24 Hr Patch) 1 patch DAILY TOPICAL Last administered on 09/29/16 22:21; Start 09/29/16 at 21:50 Labs Test 09/28/16 08:55 09/29/16 05:33 Prothrombin Time 10.7sec (8.1-12.5) Prothromb Time International Ratio 1.00ratio Activated Partial Thromboplast Time 25.8sec (22.8-33.0) Total Bilirubin 0.3mg/dL (0.0-1.2) Aspartate Amino Transf (AST/SGOT) 39U/L (0-50) Alanine Aminotransferase (ALT/SGPT) 15U/L (0-32) Alkaline Phosphatase 62U/L (25-150) Total Protein 6.1g/dL (6.4-8.4) Albumin 3.8g/dL (3.4-5.0) White Blood Count 5.5th/mm3 (3.8-10.1) Red Blood Count 3.41mil/mm3 (3.90-5.20) Hemoglobin 10.9g/dL (12.0-15.6) Hematocrit 32.6% (35.0-46.0) Mean Corpuscular Volume 95.6fL (81-100) Mean Corpuscular Hemoglobin 32.0pg (27.0-35.0) Mean Corpuscular Hemoglobin Concent 33.4% (32.0-37.0) Red Cell Distribution Width 12.5% (12.3-15.4) Platelet Count 219bil/L (150-400) Neutrophils (%) (Auto) 76.7% (40-74) Lymphocytes (%) (Auto) 12.5% (14-46) Monocytes (%) (Auto) 7.7% (4-12) Eosinophils (%) (Auto) 2.4% (0-5) Basophils (%) (Auto) 0.5% (0-3) Sodium Level 143mEq/L (134-144) Potassium Level 4.0mEq/L (3.5-5.2) Chloride Level 102mEq/L (97-108) Carbon Dioxide Level 29mmol/L (18-29) Blood Urea Nitrogen 13mg/dL (6-24) Creatinine 0.68mg/dL (0.57-1.00) Estimat Glomerular Filtration Rate 128mL/min (>59) Glucose Level 102mg/dL (60-99) Calcium Level 8.4mg/dL (8.5-10.1) Total Creatine Kinase 9414U/L (21-215) Plan Impression Patient chart reviewed, patient interviewed and anesthestic plan with risks, benefits, and alternatives discussed, and informed consent obtained. NPO Status: 07/27 at 2300 ASA Physical Status: ASA2 Mod Systemic Disease Anesthetic Plan: GA Bene/Risks/Altern/Consents: Yes HP Complete Prior to Induction: Yes Rashaad Culver MD Sep 30, 2016 15:33
[2016-09-30] MEDS ORDERED: Phenylephrine 10,000 mCg/mL Inj IVPUSH PRN (15:35)
[2016-09-30] MEDS ORDERED: Dexamethasone 4 mg/mL Inj IVPUSH PRN (15:35)
[2016-09-30] MEDS ORDERED: EPHEDrine Sulfate 50 mg/mL Inj IVPUSH PRN (15:35)
[2016-09-30] MEDS ORDERED: Ondansetron 2 mg/mL 2 mL Inj IVPUSH PRN (15:35)
[2016-09-30] MEDS ORDERED: MetoCLOpramide 5 mg/mL 2 mL Inj IVPUSH PRN (15:35)
--- NOTE | 2016-09-30 17:11 | NUR ---
spiritual care: follow up visit attempt; pt in surgery, following
--- NOTE | 2016-09-30 17:21 | PCM.ANEP1 ---
Post Anesthesia Phase 1 PACU Phase 1 Assessment Date of Service: Sep 28, 2016 Vital Signs Vital Signs Date Time Temp Pulse Resp B/P Pulse Ox O2 Delivery O2 Flow Rate FiO2 09/30/16 17:13 61 15 132/70 100 Simple Mask 7 09/30/16 17:06 36.6 59 15 124/70 100 Simple Mask 7 09/30/16 15:06 36.4 69 20 111/66 99 Room Air 09/30/16 09:48 36.9 81 22 117/71 100 Room Air Anesthetic Administered: GA Level of Alertness: Awake, talking VICKERS's with Equal Strength: Yes Pain: Yes Pain Scale Score: 9 Nausea or Vomiting: No Airway Device: Lungs: Normal Air Movement Dermatome Level: Full Sensation Rashaad Culver MD Sep 30, 2016 17:21
--- NOTE | 2016-09-30 17:22 | PCM.ANEP2 ---
Post Anesthesia Evaluation ASA/CMS Post Anesthesia VS in Patient's Normal Range?: Yes Resp Stable; Airway Patent?: Yes CV Function & Hydration Stable: Yes Mental Status Recovered?: Yes Pain control Satisfactory?: Yes N/V Control Satisfactory?: Yes Rashaad Culver MD Sep 30, 2016 17:22
[2016-09-30] MEDS: fentaNYL-PF 50 mCg/mL 2 mL Inj IVPUSH PRN ×3 (17:24→17:47)
[2016-09-30] MEDS: HYDROmorphone 1 mg/mL Inj IVPUSH PRN ×3 (17:24→17:48)
--- NOTE | 2016-09-30 19:24 | OP ---
[address] [address] OPERATIVE REPORT PATIENT: THO YADAV : 1960 MR#: [id number] ADMIT: 09/28/2016 JOB ID: [id number] CORRECTED REPORT: DATE OF SURGERY: 09/30/2016 PREOPERATIVE DIAGNOSIS(ES): 1. Status post left lower leg fasciotomy secondary to compartment syndrome. 2. Left lateral tibial plateau fracture. POSTOPERATIVE DIAGNOSIS(ES): 1. Status post left lower leg fasciotomy secondary to compartment syndrome. 2. Left lateral tibial plateau fracture. PROCEDURE: 1. Repeat irrigation and non-excisional debridement of left lower leg. 2. Primary closure of left medial operative wound. 3. Re-application of DME wound VAC to the left lateral wound measuring 20 x 7 cm in dimension. SURGEON: Jomar Wu D.O. ANESTHESIA: General. HISTORY: This patient is a pleasant 55-year-old female that presented over the weekend with compartment syndrome to the left lower leg. She also presented with lateral tibial plateau fracture. She was taken back emergently for fasciotomies to the left lower leg and application of wound VAC to the lower extremity. I discussed with the patient the need to repeat irrigation and re-evaluate the muscle and possible primary closure of one or a portion of both of the incisions and application of a wound VAC. She understood the risks include, but not limited to, neurovascular injury, tendon injury, infection, failure of fixation, stiffness, persistent pain all which may require further intervention. The patient had all questions answered. Consent was signed and placed in the chart. PROCEDURE IN DETAIL: The patient was brought to the operative suite and placed supine on the operating table. Surgical time-out was performed and everyone in the room was in agreement. After appropriate anesthesia was obtained, the wound VAC was then removed. The left lower extremity was then prepped and draped in a sterile fashion. The patient's medial and lateral wounds were irrigated with approximately 3 L of normal saline. The muscle was identified and evaluated on both the medial and lateral wounds consisting of both the superficial and deep posterior compartments as well as the anterior and lateral compartments. The muscles demonstrated excellent color as well as consistency with propensity to bleed and all the muscles were able to be stimulated with electrocautery. No debridement of muscle was necessary. The patient's medial wound was then closed with a combination of 3-0 Monocryl and 3-0 nylon in a vertical mattress fashion. The edges of the medial wound were easily reapproximated without any undue tension. Attention was then turned towards the lateral operative wound. The edges were unable to be approximated without a significant amount of tension, thus decision was made to solely apply a wound VAC to the lateral wound. A wound VAC was applied measuring 20 x 7 cm in dimension, with also utilization of a vessel loop to form a Per's ladder to decrease the size of the wound that required wound VAC. Excellent seal was achieved. The medial incision had a Xeroform and 4x4s applied. The patient was then placed into a bulky dressing and back into a knee immobilizer. ESTIMATED BLOOD LOSS: 25 cc. COMPLICATIONS: None. DISPOSITION: The patient tolerated the procedure well. Anesthesia was reversed. The patient was transferred back to recovery. POSTOPERATIVE PLAN: The patient will return to the OR this and undergo a repeat I and D, and we may be able to further close the edges of the lateral wound but will likely require a split-thickness skin graft from the thigh to the left lateral leg. She will also undergo open reduction and fixation of left tibial plateau fracture at that time. Addenda added by RONY 10/30/16 at 7:46am MTDD
[2016-10-01] MEDS: Sodium Chloride LOK Flush 10 mL Syringe IV SCH ×3 (00:30→16:30)
[2016-10-01] MEDS: CeFAZolin Inj 2 GM in IV Premix 1 EACH IV SCH ×3 (01:41→18:33)
[2016-10-01 02:00] VITALS: BP 106/65; PULSE 67; RESP 20; O2SAT 99
[2016-10-01] MEDS: oxyCODONE-Acetamin 5-325 mg Tablet PO PRN ×5 (04:16→20:04)
[2016-10-01 06:25] VITALS: BP 141/78; PULSE 62; RESP 20; O2SAT 100
--- NOTE | 2016-10-01 06:27 | PCM.PNORTH ---
Subjective Date of Service: Oct 01, 2016 Visit Information: Reason for Visit Compartment Syndrome L Lower Leg Surgery/Surgery Date Post-Op Day # Date of Admission: Sep 28, 2016 at 01:51 Hospital Day # Subjective Found patient sleeping this morning and easily awakened. No complaints of pain at this time. Discussed return to OR on 10/02/2016 for continued closure of wound with possible skin grafting and ORIF of tibial plateau fracture. Patient is pleasant and resigned to her treatment plan at this time. I have encouraged patient to participate in bed exercises to maintain mobility such as flaps and quad sets etc. Postop General: No Complaints, No Shortness of Breath, No Chest Pain Pain Management: PO Objective Exam Objective Orientation: Alert and oriented 3 and pleasant. Dressing: Interoperative dressing is clean dry and intact Immobilization: Knee immobilizer in place the left lower extremity Wound: Wound is not observed today Compartments: Calf and thigh are soft and nontender Mobility/sensation: Mobility and sensation are intact at left lower extremity with patient's report that she has improved sensation today. Abduction wedge: None VAL hose: None Mcpherson: Pleasant and working Wound VAC: Present but no evidence of drawing fluid at this time. We will contact wound care for checkup Drain: None Gait: None Vital Signs and I/O Vital Sign - Last Date Time Temp Pulse Resp B/P Pulse Ox O2 Delivery O2 Flow Rate FiO2 10/01/16 02:00 37.0 67 20 106/65 99 Room Air 09/30/16 17:13 7 Intake and Output 09/30/16 09/30/16 10/01/16 Cumulative From/Thru 15:00 23:00 07:00 09/28/16 01:11 - 10/01/16 05:28 Intake Total 550 ml 6218 ml Output Total 500 ml 4585 ml Balance 50 ml 1633 ml Intake Oral 400 ml 3558 ml IV Total 150 ml 2660 ml Output Urine Total 500 ml 4035 ml Stool Total 0 ml Drainage Total 550 ml # Bowel Movements 0 Result Diagram: 09/29/16 0533 09/29/16 0533 General Appearance: Alert, Oriented X3, Cooperative, No Acute Distress Extremities: No Compartment Syndrom Noted, Thigh & Calf Soft/Nontender Postop Sensory Motor: Distal Motor Intact, Movement in Toes, Distal Sensation Intact SURGICAL WOUND : Drain Location Body Site: leg Wound Drainage Type: Wound Vac Catheters: Urethral 2 Way Mcpherson Assessment & Plan Impression Patient is a 55-year-old female whom is managing quite well considering she has undergone 2 surgical procedures and has been bedbound for several days. She has a good attitude and is pleasant and is well resigned to her treatment at this time. Problems: Plan Postop day # 3 from left lower extremity fasciotomy performed on 09/28/[address] Jomar Wu. Patient has had a return to the OR on 09/30/[address] Jomar Wu for repeat I&D and further closure of her wounds with reapplication of wound VAC. Weight bearing status: Nonweightbearing on the left lower extremity. Mobility aid: Immobilization: Knee immobilizer left lower extremity to be kept on at all times Precautions: Physical therapy: No physical therapy or occupational therapy as ordered at this time per Dr. Jomar Wu. Pain control: Continue by mouth pain medication as needed in the form of Percocet and Vistaril. DVT prophylaxis: Discontinue Lovenox 40 today in anticipation of return to the OR tomorrow on 10/02/2016. Wound care: Keep wound and dressing clean and dry Infectious DZ: None Mcpherson: Present and working Dressing: Interoperative dressing is in place and clean dry and intact. Wound VAC is in place with questionable suction. I have placed ordered today for wound care to check this VAC today and follow patient while she is in house. Drain: None Abduction wedge: None VAL hose: None SCDs: In place and working at right lower extremity Nursing communication: Nursing please keep patient nothing by mouth after midnight tonight with anticipation of return to OR for further procedures on 10/2016. Nursing please hold Lovenox dosing today in anticipation of return to OR on 10/02/2016. 2-week follow-up: TBD 6-week follow-up: TBD Plan: Patient will return to the OR tomorrow on 10/02/[address] Jomar Wu for repeat I&D and further closure of fasciotomy wounds with ORIF of tibial plateau fracture. Discharge instructions: TBD Discharge plan: TBD VTE Prophylaxis: Sub-Q Enoxaparin (40 mg subcutaneous daily.), SCDs (SCD and right lower extremity.) Krish Aguillon PA-C Oct 01, 2016 06:22
[2016-10-01 06:46] LABS: BASOPHILS % (AUTO) 0.2 % (0-3); EOSINOPHILS % (AUTO) 2.6 % (0-5); MONOCYTES % (AUTO) 7.9 % (4-12); Mean Corpuscular Hemoglobin 31.7 pg (27.0-35.0); Mean Corpuscular Volume 96.8 fL (81-100); NEUTROPHILS % (AUTO) 74.7 % (40-74); Platelet Count 233 bil/L (150-400)
--- NOTE | 2016-10-01 07:58 | PCM.PNMED ---
Subjective Date of Service Oct 01, 2016 Subjective Patient had I&D done yesterday in the OR. She is complaining of some pain in the area an hour after getting morphine injection. Otherwise she has no complaints. Exam Vital Signs Vital Sign - Last Date Time Temp Pulse Resp B/P Pulse Ox O2 Delivery O2 Flow Rate FiO2 10/01/16 06:25 36.7 62 20 141/78 100 Room Air 09/30/16 17:13 7 Intake and Output 09/30/16 09/30/16 10/01/16 Cumulative From/Thru 14:59 22:59 06:59 09/28/16 01:11 - 10/01/16 06:29 Intake Total 550 ml 465 ml 6683 ml Output Total 500 ml 1105 ml 5690 ml Balance 50 ml -640 ml 993 ml Intake Oral 400 ml 400 ml 3958 ml IV Total 150 ml 65 ml 2725 ml Output Urine Total 500 ml 1105 ml 5140 ml Stool Total 0 ml 0 ml Drainage Total 550 ml # Bowel Movements 0 Exam Constitutional: Middle-aged woman pleasant in mild pain distress Head: Normocephalic atraumatic Chest: Clear to auscultation Cor: Regular rate and rhythm S1-S2 Abdomen: Soft nontender bowel sounds present Extremities: Left side is wrapped and dressed right side reveals SCDs with no pedal edema noted Neuro: Alert and oriented 3, motor strength is intact bilaterally Lab and Diagnostics Laboratory Tests 72 Hours Test 09/28/16 08:55 09/29/16 05:33 10/01/16 06:02 White Blood Count 10.2th/mm3 (3.8-10.1) 5.5th/mm3 (3.8-10.1) 4.9th/mm3 (3.8-10.1) Red Blood Count 3.42mil/mm3 (3.90-5.20) 3.41mil/mm3 (3.90-5.20) 3.09mil/mm3 (3.90-5.20) Hemoglobin 11.2g/dL (12.0-15.6) 10.9g/dL (12.0-15.6) 9.8g/dL (12.0-15.6) Hematocrit 31.8% (35.0-46.0) 32.6% (35.0-46.0) 29.9% (35.0-46.0) Mean Corpuscular Volume 93.0fL (81-100) 95.6fL (81-100) 96.8fL (81-100) Mean Corpuscular Hemoglobin 32.7pg (27.0-35.0) 32.0pg (27.0-35.0) 31.7pg (27.0-35.0) Mean Corpuscular Hemoglobin Concent 35.2% (32.0-37.0) 33.4% (32.0-37.0) 32.8% (32.0-37.0) Red Cell Distribution Width 12.3% (12.3-15.4) 12.5% (12.3-15.4) 11.9% (12.3-15.4) Platelet Count 247bil/L (150-400) 219bil/L (150-400) 233bil/L (150-400) Neutrophils (%) (Auto) 81.9% (40-74) 76.7% (40-74) 74.7% (40-74) Lymphocytes (%) (Auto) 8.9% (14-46) 12.5% (14-46) 14.4% (14-46) Monocytes (%) (Auto) 7.9% (4-12) 7.7% (4-12) 7.9% (4-12) Eosinophils (%) (Auto) 0.6% (0-5) 2.4% (0-5) 2.6% (0-5) Basophils (%) (Auto) 0.3% (0-3) 0.5% (0-3) 0.2% (0-3) Prothrombin Time 10.7sec (8.1-12.5) Prothromb Time International Ratio 1.00ratio Activated Partial Thromboplast Time 25.8sec (22.8-33.0) Sodium Level 141mEq/L (134-144) 143mEq/L (134-144) Potassium Level 4.2mEq/L (3.5-5.2) 4.0mEq/L (3.5-5.2) Chloride Level 102mEq/L (97-108) 102mEq/L (97-108) Carbon Dioxide Level 24mmol/L (18-29) 29mmol/L (18-29) Blood Urea Nitrogen 17mg/dL (6-24) 13mg/dL (6-24) Creatinine 0.74mg/dL (0.57-1.00) 0.68mg/dL (0.57-1.00) Estimat Glomerular Filtration Rate 116mL/min (>59) 128mL/min (>59) Glucose Level 163mg/dL (60-99) 102mg/dL (60-99) Calcium Level 8.5mg/dL (8.5-10.1) 8.4mg/dL (8.5-10.1) Total Bilirubin 0.3mg/dL (0.0-1.2) Aspartate Amino Transf (AST/SGOT) 39U/L (0-50) Alanine Aminotransferase (ALT/SGPT) 15U/L (0-32) Alkaline Phosphatase 62U/L (25-150) Total Creatine Kinase 2291U/L (21-215) 9414U/L (21-215) Total Protein 6.1g/dL (6.4-8.4) Albumin 3.8g/dL (3.4-5.0) Result Diagram: 10/01/16 0602 09/29/16 0533 X-Rays, CTs and MRIs PROCEDURE: CT KNEE LEFT W/O CONTRAST ([id number]) INDICATIONS: tibial plateau fracture TECHNIQUE: Noncontrast 1-1.5 mm axial sections acquired from the mid-patella to the proximal tibia, with coronal and sagittal reformats. COMPARISON: [facility], CR, XR TIBIA FIBULA 2VW LT, 09/28/2016, 1: 24. FINDINGS: Image quality: Excellent. Bones: There is a comminuted moderately displaced fracture of the lateral tibial plateau, predominantly posteriorly with extension to the tibial spines anteriorly and posteriorly. There is mild angulation of the posterior aspect of the lateral tibial plateau, with roughly 3-4 mm of depression of the lateral tibial plateau. There is a mildly displaced comminuted fibular head fracture. Soft tissues: Soft tissue gas is present both medially and laterally, indicating an open fracture. A knee joint effusion is present. IMPRESSION: 1. Tibial plateau fracture as above. 2. Fibular head fracture. 3. Knee joint effusion. Dictated by: Lety Hartmann M.D. on 09/28/2016 at 9:30 Approved by: Lety Hartmann M.D. on 09/28/2016 at 9:33 Assessment & Plan 55yoF with PMH remarkable for stage three colorectal adenocarcinoma with partial colostomy who presents with 3 days of left leg pain, swelling, and numbness, currently being treated with emergent fasciotomy for left lower leg compartment syndrome. 1. Acute Left Lower Extremity Compartment Syndrome secondary to left tibial plateau fx - s/p left lower extremity fasciotomy on 09/28/2016 - has 2 returns to the operating room planned for today and of this week. - on wound vac - further management per primary ortho team -Had I&D done yesterday by or thorough and plan to redo on . 2. acute left lateral tibial plateau and Proximal left fibular head fracture - further management per ortho - c/w supportive care 3. History of Stage III colorectal adenocarcinoma - previously treated with neoadjuvant chemoradiation followed by APR and colostomy with additional chemotherapy with FULFOX - currently undergoing radiation therapy. Radiation oncologist is Dr. Bolivar ( ext [phone]). Try to contact and update tomorrow (I wasn't able to connect today) 4. peripheral neuropathy, chronic - gabapentin 600mg TID - nortriptyline 10mg HS [facility] records indicate may be BID dosing however patient is too sedated to confirm 7. HTN, chronic - Amlodipine 10mg daily 8. Anxiety and Depression, chronic - Effexor 225mg q day - nortriptyline 10mg HS [facility] records indicate may be BID dosing however patient is too sedated to confirm 9. Hypothyroidism, chronic - Levothyroxine 88mcg daily 10. stress incontinence, chronic - nortriptyline 10mg HS [facility] records indicate may be BID dosing however patient is too sedated to confirm - Tolterodine 2mg BID 11. Anemia, present on admission, Check iron studies. Dispo: per primary ortho team GI Prophylaxis: H2 guero VTE Prophylaxis: Sub-Q Enoxaparin (40 mg subcutaneous daily.), SCDs (SCD and right lower extremity.) VTE Mechanical Devices: Intermittant Pneumatic CD Time spent 30 minutes Chloe Tolbert MD Oct 01, 2016 07:58
[2016-10-01] MEDS: Senna-Docusate 8.6-50 mg Tablet PO SCH ×2 (08:16→21:05)
[2016-10-01] MEDS: Magnesium Hydroxide 10 mL Oral Concentration PO PRN (08:16)
[2016-10-01] MEDS: Venlafaxine XR 75 mg ER24 Capsule PO SCH (08:30)
[2016-10-01] MEDS: Tolterodine ER 2 mg ER24 Capsule PO SCH ×2 (08:30→21:06)
[2016-10-01 08:32] LABS: Unsaturated Iron Binding 195.1 ug/dL
[2016-10-01 14:15] VITALS: BP 118/76; PULSE 77; RESP 16; O2SAT 98
[2016-10-01] MEDS: hydrOXYzine Pamoate 25 mg Capsule PO PRN (15:30)
--- NOTE | 2016-10-01 17:43 | NUR ---
pain pain still fairly severe when pain meds start to wear off, needing Percocet and MS usually, ortho signs OK, wound vac running at 125, small amt sero-sang
--- NOTE | 2016-10-01 17:50 | NUR ---
Wound Care Wound Care order received, reportedly NPWT was leaking but removal of brace from pt's leg and saw wrap and kerlix reveals a good seal at the I&D site. I scrolled through the history on the NPWT and there is no incidence of leakage in the history section, pt rewrapped. Pt to have skin graft by ortho service line tomorrow from what I understand, happy to help with NPWT placement if needed in OR. Ostomy device changed out for the patient today as well.
--- NOTE | 2016-10-01 18:00 | NUR ---
spiritual care: follow up lengthy conversational visit. pt reported on her medical progress, surgery and plans for tomorrow. pt thoughtful and emotional as she recounted past and hopes for future. Pt weaving insights and new learnings about her olinda as she makes plans, explores themes such as forgiveness and renewal. Prayer.
[2016-10-01 20:24] VITALS: BP 132/81; PULSE 71; RESP 17; O2SAT 95
[2016-10-01 20:30] VITALS: BP 132/81; PULSE 71; RESP 17; O2SAT 95
--- NOTE | 2016-10-01 20:41 | NUR ---
percocet ineffective 1 hour reassessment, pt denies change in pain level 9 after administration of Percocet (2 tablets) Patient claims that Percocet has no effect on pain. Claims only morphine is effective. History, patient claims percocet has had little effect in the past as well.
[2016-10-02] VITALS (17 sets, daily range): BP systolic 110–164; BP diastolic 57–98; PULSE 64–97; RESP 12–22; O2SAT 98–100
[2016-10-02] MEDS: hydrOXYzine Pamoate 25 mg Capsule PO PRN ×2 (00:02→05:35)
[2016-10-02] MEDS: oxyCODONE-Acetamin 5-325 mg Tablet PO PRN ×4 (00:02→22:42)
[2016-10-02] MEDS ORDERED: 0.9% Sodium Chloride 250 ML ONE (01:21)
[2016-10-02] MEDS: CeFAZolin Inj 2 GM in IV Premix 1 EACH IV SCH ×3 (01:31→14:18)
[2016-10-02] MEDS: Sodium Chloride LOK Flush 10 mL Syringe IV SCH ×3 (01:32→18:11)
[2016-10-02] MEDS: Lactated Ringer's 1,000 ML IV SCH ×2 (05:00→14:55)
[2016-10-02] MEDS ORDERED: Lactated Ringer's 1,000 ML IV SCH ×2 (05:00→15:17)
--- NOTE | 2016-10-02 07:38 | NUR ---
activity pt NPO since midnight. still needing IV morphine for pain control as she says the Percocet is not effective. care continues.
[2016-10-02] MEDS: Senna-Docusate 8.6-50 mg Tablet PO SCH ×2 (07:53→21:55)
[2016-10-02] MEDS: Venlafaxine XR 75 mg ER24 Capsule PO SCH (08:38)
[2016-10-02] MEDS: Tolterodine ER 2 mg ER24 Capsule PO SCH ×2 (08:38→21:55)
--- NOTE | 2016-10-02 08:40 | PCM.PNMED ---
Subjective Date of Service Oct 02, 2016 Subjective Patient is going back to the OR about one today. She notes that her mouth is dry since she has been nothing by mouth after midnight. Exam Vital Signs Vital Sign - Last Date Time Temp Pulse Resp B/P Pulse Ox O2 Delivery O2 Flow Rate FiO2 10/02/16 05:56 36.7 64 17 129/71 100 Room Air 09/30/16 17:13 7 Intake and Output 10/01/16 10/01/16 10/02/16 Cumulative From/Thru 15:00 23:00 07:00 09/28/16 01:11 - 10/02/16 05:55 Intake Total 1540 ml 300 ml 8523 ml Output Total 800 ml 1200 ml 7690 ml Balance 740 ml -900 ml 833 ml Intake Oral 1540 ml 300 ml 5798 ml IV Total 2725 ml Output Urine Total 800 ml 1200 ml 7140 ml Stool Total 0 ml 0 ml 0 ml Drainage Total 550 ml # Bowel Movements 0 Exam Constitutional: Middle-aged woman in no acute distress Head: Normocephalic atraumatic Chest: Clear to auscultation Cor: Regular rate and rhythm S1-S2 without murmur Abdomen soft nontender bowel sounds present Extremities no edema noted in her feet bilaterally she does have left-sided dressed and splinted and right side has SCD. Psych: Mood and affect are appropriate Neuro: Alert and oriented 3, motor strength is intact bilaterally Lab and Diagnostics Result Diagram: 10/01/16 0602 09/29/16 0533 X-Rays, CTs and MRIs PROCEDURE: CT KNEE LEFT W/O CONTRAST (48280) INDICATIONS: tibial plateau fracture TECHNIQUE: Noncontrast 1-1.5 mm axial sections acquired from the mid-patella to the proximal tibia, with coronal and sagittal reformats. COMPARISON: [facility], CR, XR TIBIA FIBULA 2VW LT, 09/28/2016, 1: 24. FINDINGS: Image quality: Excellent. Bones: There is a comminuted moderately displaced fracture of the lateral tibial plateau, predominantly posteriorly with extension to the tibial spines anteriorly and posteriorly. There is mild angulation of the posterior aspect of the lateral tibial plateau, with roughly 3-4 mm of depression of the lateral tibial plateau. There is a mildly displaced comminuted fibular head fracture. Soft tissues: Soft tissue gas is present both medially and laterally, indicating an open fracture. A knee joint effusion is present. IMPRESSION: 1. Tibial plateau fracture as above. 2. Fibular head fracture. 3. Knee joint effusion. Dictated by: Lety Hartmann M.D. on 09/28/2016 at 9:30 Approved by: Lety Hartmann M.D. on 09/28/2016 at 9:33 Assessment & Plan 55yoF with PMH remarkable for stage three colorectal adenocarcinoma with partial colostomy who presents with 3 days of left leg pain, swelling, and numbness, currently being treated with emergent fasciotomy for left lower leg compartment syndrome. 1. Acute Left Lower Extremity Compartment Syndrome secondary to left tibial plateau fx - s/p left lower extremity fasciotomy on 09/28/2016 - has 2 returns to the operating room planned for today and of this week. - on wound vac - further management per primary ortho team -Had I&D done on Thursday by or thorough and plan to redo today. 2. acute left lateral tibial plateau and Proximal left fibular head fracture - further management per ortho - c/w supportive care 3. History of Stage III colorectal adenocarcinoma - previously treated with neoadjuvant chemoradiation followed by APR and colostomy with additional chemotherapy with FULFOX - currently undergoing radiation therapy. Radiation oncologist is Dr. Bolivar ( ext [phone]). Try to contact and update tomorrow (I wasn't able to connect today) 4. peripheral neuropathy, chronic - gabapentin 600mg TID - nortriptyline 10mg HS [facility] records indicate may be BID dosing however patient is too sedated to confirm 7. HTN, chronic - Amlodipine 10mg daily 8. Anxiety and Depression, chronic - Effexor 225mg q day - nortriptyline 10mg HS [facility] records indicate may be BID dosing however patient is too sedated to confirm 9. Hypothyroidism, chronic - Levothyroxine 88mcg daily 10. stress incontinence, chronic - nortriptyline 10mg HS [facility] records indicate may be BID dosing however patient is too sedated to confirm - Tolterodine 2mg BID 11. Anemia, present on admission, Check iron studies. Iron saturation came back low but low so we will start on ferrous sulfate 325 mg by mouth daily. Dispo: per primary ortho team GI Prophylaxis: H2 guero VTE Prophylaxis: Sub-Q Enoxaparin (40 mg subcutaneous daily.), SCDs (SCD and right lower extremity.) VTE Mechanical Devices: Intermittant Pneumatic CD Time spent 30 minutes Chloe Tolbert MD Oct 02, 2016 08:39
--- NOTE | 2016-10-02 08:52 | PCM.HPANE ---
Patient Data Surgeon Admitting Provider:Jomar Wu DO Attending Provider:Jomar Wu DO Primary Care Physician:Tatyana Rodriguez Other Provider:Jessica Milan Anesthesia Reason for Visit Compartment Syndrome L Lower Leg Ht/WT & BMI Height (Feet): 5 Height (Inches): 2.00 Weight (Kilograms): 46.300 Body Mass Index 19.47 Allergies Coded Allergies: No Known Allergies (Verified Allergy, Unknown, 04/22/16) Past Anesthesia History Anesthesia History: Denies:: Abnormal Airway, Anesthesia Reactions, Difficult Intubation, Fam Anesthesia Reaction, Fam Malignant Hypertherm, Malignant Hyperthermia Diabetes History Hx Diabetes?: No MRSA MRSA: No Medications Home Meds Incl Beta Delroy: No Reported Medications Amlodipine 5 Mg Tablet5 Mg PO DAILY HYPERTENSION Ref 0 09/29/16 Clonazepam ODT 1 Mg Tablet1-2 Mg PO HS PRN For Anxiety Ref 0 09/29/16 Venlafaxine ER 37.5 Mg Cap.[id number] Mg PO BID Ref 0 04/10/16 Hydrocodone-Acetaminophen 7.5-325 mg 1 Each Tablet1-2 Tablet PO Q6HRS PRN PRN For Pain Ref 0 03/28/16 Levothyroxine (Levoxyl)88 Mcg Ofhgop23 Mcg PO DAILY 30 Days Ref 0 02/20/15 Discontinued Reported Medications hydrOXYzine Hcl (HydrOXYzine Hcl)25 Mg Lfjsoy15 Mg PO HS BLADDER PAIN 09/29/16 Oxycodone (Roxicodone)5 Mg Tablet7.5 Mg PO Q4H PRN For Pain Ref 0 04/10/16 Tolterodine Tartrate 2 Mg Tablet2 Mg PO BID 11/21/15 Gabapentin 300 Mg [id number] Mg PO TID 30 Days Ref 0 02/19/15 Discontinued Scripts Amlodipine 10 Mg Favddz81 Mg PO DAILY #30 TABLET Ref 0 Prov:Praful England MD 01/05/16 History History of ENT Problems?: No HEENT History: Denies:: Abnormal Airway Cataracts Difficult Intubation Dysphagia Hearing Problem Sinus Problem Hx of Heart Problems?: Yes Cardiovascular History: Positive for:: Edema (LEGS) Hypertension Denies:: AICD Atrial Fibrillation Chest Pain Congestive Heart Failure Irregular Heartbeat Pacemaker Valvular Heart Disease Hx of Respiratory Problem?: Yes Respiratory History: Denies:: Asthma COPD Cough Dyspnea Hemoptysis Pneumonia Tuberculosis Other Resp Pertinent History: lung cancer Hx Neurologic Problems?: Yes Neurological History: Positive for:: Dizziness Seizures (on seroquel) Denies:: Alzheimer's Disease CVA Dementia Headaches Parkinson's Disease Hx of GI Problems?: Yes Gastrointestinal History: Positive for:: Gastrointestinal Bleeding (Rectal - HX of rectal CA with colon rescection/colostomy) Heartburn Rectal Bleeding Denies:: Cirrhosis Diverticulitis Gastroesphageal Reflux Hepatitis Hiatal Hernia Other GI Pertinent History: has colostomy Hx of Problems?: Yes Genitourinary History: Denies:: HX of Hemodialysis Kidney Stones Urinary Tract Infection Other Pertinent History: bladder leaking Female Hx: Denies:: Currently Endometriosis Pelvic Inflammatory Problems with Breasts? Skin History: Positive for:: History Skin Disorders? (HX OF RASHES AND DRYNESS , PERINEAL RASH 05/29 PER MD) Other Skin Pertinent History: just received wound vac to left leg in surgery Hx Musculoskeletal Problems?: Yes Musculoskeletal History: Positive for:: Musculoskeletal Trauma (fell 2 days ago. ) Denies:: Back Injury Joint Replacement (Hip and ankle were left alone to heal naturally) Hx of Psycho/Social Problems?: Yes Psycho Social History: Positive for:: Anxiety Hx Depression Suicide Attempt (remote history per PMH) Denies:: Bipolar Disorder Hx Surgeries?: Yes (colon resection/removal - colostomy, ) Hx Any Other Health Problems?: Yes Other History: Positive for:: Cancer (rectal) Hospitalization Thyroid Disease (on supplement) History Blood Transfusions: Positive for:: Accept Blood Products? Denies:: Blood Transfuse Reaction Blood Transfusions Hx Diabetes: No Hx Alcohol Use: Yes (one glass wine monthly)Hx Substance Use: Yes (marijuana smoke 3 joints a day) Smoking Status: Current Every Day Smoker Have You Smoked inLast 12 mo: YesApprox How Many Cigarettes/day: 5-7 cigarettes daily Stop/Bang Treated for Sleep Apnea?: No Do You Have a CPAP Machine?: No T-Tired: feel tired, fatigued: No O-Obsered: Observed not breath: No P-Blood Pressure: treated: Yes B- Body Mass Index > 35 kg/m2: No A- Age over 50: Yes N- Neck Large Circumference: No G- Gender Male: No HOLDEN Risk Assessment: Low Risk, <3 Yes Risk Assessment Category Category 1A: Patient has history of documented sleep apnea, and HAS NOT received any narcotic, sedative or anesthesia administration during this stay. Category 1B: Patient has history of documented sleep apnea, and HAS received any narcotic , sedative or anesthesia administration during this stay Category 2: Patient has SUSPECTED Obstructive Sleep Apnea, and HAS received any narcotic , sedative or anesthesia administration during this stay. Category 3: Patient has SUSPECTED Obstructive Sleep Apnea and HAS NOT received narcotic, sedative or anesthesia administration during this stay. Category 4: Outpatient in Procedural Areas with known sleep apnea or who screen positive for High Risk via the STOP/BANG questionnaire. Low Risk, <3 Yes Exam Exam Vital Signs Vital Signs Date Time Temp Pulse Resp B/P Pulse Ox O2 Delivery O2 Flow Rate FiO2 10/02/16 05:56 36.7 64 17 129/71 100 Room Air General Appearance: Alert, Oriented X3, Cooperative, No Acute Distress HEENT/AIRWAY: MP 1, Other (poor dentition secondary to chemo) Lungs: Normal Air Movement Heart: Regular Rate/Rhythm Meds/Labs/Diagnostics Admission Meds Current Medications Sodium Chloride (Normal Saline) 250 ml @ ud STK-MED ONCE .ROUTE Last administered on 10/02/16t 01:31; Start 10/02/16 at 01:21; Stop 10/02/16 at 01:23; Status DC Labs Test 09/28/16 08:55 09/29/16 05:33 10/01/16 06:02 Prothrombin Time 10.7sec (8.1-12.5) Prothromb Time International Ratio 1.00ratio Activated Partial Thromboplast Time 25.8sec (22.8-33.0) Total Bilirubin 0.3mg/dL (0.0-1.2) Aspartate Amino Transf (AST/SGOT) 39U/L (0-50) Alanine Aminotransferase (ALT/SGPT) 15U/L (0-32) Alkaline Phosphatase 62U/L (25-150) Total Protein 6.1g/dL (6.4-8.4) Albumin 3.8g/dL (3.4-5.0) Sodium Level 143mEq/L (134-144) Potassium Level 4.0mEq/L (3.5-5.2) Chloride Level 102mEq/L (97-108) Carbon Dioxide Level 29mmol/L (18-29) Blood Urea Nitrogen 13mg/dL (6-24) Creatinine 0.68mg/dL (0.57-1.00) Estimat Glomerular Filtration Rate 128mL/min (>59) Glucose Level 102mg/dL (60-99) Calcium Level 8.4mg/dL (8.5-10.1) Total Creatine Kinase 9414U/L (21-215) White Blood Count 4.9th/mm3 (3.8-10.1) Red Blood Count 3.09mil/mm3 (3.90-5.20) Hemoglobin 9.8g/dL (12.0-15.6) Hematocrit 29.9% (35.0-46.0) Mean Corpuscular Volume 96.8fL (81-100) Mean Corpuscular Hemoglobin 31.7pg (27.0-35.0) Mean Corpuscular Hemoglobin Concent 32.8% (32.0-37.0) Red Cell Distribution Width 11.9% (12.3-15.4) Platelet Count 233bil/L (150-400) Neutrophils (%) (Auto) 74.7% (40-74) Lymphocytes (%) (Auto) 14.4% (14-46) Monocytes (%) (Auto) 7.9% (4-12) Eosinophils (%) (Auto) 2.6% (0-5) Basophils (%) (Auto) 0.2% (0-3) Iron Level 31ug/dL (35-150) Total Iron Binding Capacity 226ug/dL (250-450) Percent Iron Saturation 14%sat (15-50) Unsaturated Iron Binding 195.1ug/dL Plan Impression Patient chart reviewed, patient interviewed and anesthestic plan with risks, benefits, and alternatives discussed, and informed consent obtained. NPO Status: MN ASA Physical Status: ASA3 Severe Disease Anesthetic Plan: GA Bene/Risks/Altern/Consents: Yes HP Complete Prior to Induction: Yes Huma Montes De Oca DO Oct 02, 2016 08:52
[2016-10-02] MEDS ORDERED: fentaNYL-PF 50 mCg/mL 2 mL Inj ONE (12:33)
[2016-10-02] MEDS ORDERED: Ondansetron 2 mg/mL 2 mL Inj ONE (12:55)
[2016-10-02] MEDS ORDERED: Dexamethasone 4 mg/mL Inj ONE (12:55)
[2016-10-02] MEDS ORDERED: Propofol 10,000 mCg/mL 20 mL Inj ONE (12:55)
--- NOTE | 2016-10-02 13:36 | NUR ---
NUTRITION ASSESSMENT: ASSESS: Pt is a 55yo F admitted for left lower leg compartment syndrome. She is s/p left lower extremity fasciotomy on 09/28/2016. Pt returned to the OR today for further I&D. Wound vac is in place. Pt is NPO for procedure. Prior to NPO she was on General diet with good PO at 50-100%. Per MD, pt is also currently undergoing radiation for colon ca. PMHX: colorectal ca. HTN, anxiety LABS: Reviewed. (09/29) Glu 102, Ca 8.4, Alb 3.8 MEDS: Reviewed. GI: ostomy- 0 output recorded SKIN: Jong 15 CURRENT WTS: 46.3kg, BMI 18.7kg/m2. Admit wt: 48kg. Per chart review, wt has been stable. There is some discrepancy in pt's ht. Usual ht is 60inches, current ht recorded is 62inches. BMI may not be accurate DIET: NPO for procedure. EST. NEEDS: multiple surgeries/healing Kcals: 1160-1400kcal/day (25-30kcal/kg) Pro: 70-85g/day (1.5-1.8g/kg) NUTRITION DIAGNOSIS: 1.) Increased nutrient needs related to increased demand for healing as evidence by pt with wound vac and need for multiple surgical procedures. NUTRITION INTERVENTION: 1.) Advance diet when medically appropriate 2.) Will add Ensure on L tray to help increase kcal/pro intake MONITOR / EVAL: Diet advance, PO, wt, labs, GI, POC, nutrition status. Will continue to monitor per moderate nutrition risk guidelines
[2016-10-02] MEDS ORDERED: Lactated Ringer's 500 ML IV PRN (15:17)
[2016-10-02] MEDS ORDERED: EPHEDrine Sulfate 50 mg/mL Inj IVPUSH PRN (15:20)
[2016-10-02] MEDS ORDERED: Labetalol 5 mg/mL 4 mL Inj IV PRN (15:20)
[2016-10-02] MEDS ORDERED: fentaNYL-PF 50 mCg/mL 2 mL Inj IVPUSH PRN (15:20)
[2016-10-02] MEDS ORDERED: Ondansetron 2 mg/mL 2 mL Inj IVPUSH PRN (15:20)
[2016-10-02] MEDS ORDERED: MetoCLOpramide 5 mg/mL 2 mL Inj IVPUSH PRN (15:20)
[2016-10-02] MEDS ORDERED: hydrALAZINE 20 mg/mL Inj IVPUSH PRN (15:20)
[2016-10-02] MEDS ORDERED: Phenylephrine 10,000 mCg/mL Inj IVPUSH PRN (15:20)
[2016-10-02] MEDS ORDERED: Mineral Oil-Light (Sterile) 25 mL TOPICAL ONE (15:31)
[2016-10-02] MEDS ORDERED: Lidocaine PF 1% 30 mL Inj INFILTRATE ONE (16:16)
--- NOTE | 2016-10-02 16:43 | PCM.ANEP1 ---
Post Anesthesia Phase 1 PACU Phase 1 Assessment Date of Service: Sep 28, 2016 Vital Signs Vital Signs Date Time Temp Pulse Resp B/P Pulse Ox O2 Delivery O2 Flow Rate FiO2 10/02/16 12:03 36.6 71 16 110/64 100 Room Air Anesthetic Administered: GA Level of Alertness: Drowsy, not talking VICKERS's with Equal Strength: Yes Pain: No Nausea or Vomiting: No Airway Device: Oxygen Delivery: Simple Mask Lungs: Normal Air Movement Dermatome Level: Full Sensation Huma Montes De Oca DO Oct 02, 2016 16:43
--- NOTE | 2016-10-02 16:43 | PCM.ANEP2 ---
Post Anesthesia Evaluation ASA/CMS Post Anesthesia VS in Patient's Normal Range?: Yes Resp Stable; Airway Patent?: Yes CV Function & Hydration Stable: Yes Mental Status Recovered?: Yes Pain control Satisfactory?: Yes N/V Control Satisfactory?: Yes Huma Montes De Oca DO Oct 02, 2016 16:43
[2016-10-02] MEDS: HYDROmorphone 1 mg/mL Inj IVPUSH PRN ×3 (17:05→17:29)
[2016-10-02] MEDS: 0.9% Sodium Chloride 1,000 ML IV SCH (18:12)
--- NOTE | 2016-10-02 18:29 | NUR ---
Post op Pt returned to unit from surgery at 1750. Pt has IV fluids infusing, 2L NC pt FREIGHT SEPARATOR 100$. Left leg has saw wrap and knee brace in place, wound vac on left leg with serosanginous output. Wound care checked wound vac and it is working. Pt has trace edema around left knee, weak pedal pulse and foot is a little cool, good cap refill. Per PACU report pt's foot was cool there as well. Pt has c/o pain 8/10 in leg and medications given. New IV fluids given. VSS, A&O x 3, VICKERS. Pt is eager to have juice and crackers and AAT to general diet. No output in ostomy.
[2016-10-03] MEDS: Sodium Chloride LOK Flush 10 mL Syringe IV SCH ×3 (00:30→16:30)
[2016-10-03] MEDS: DEXTROSE 5% IV SCH ×2 (00:30→09:15)
[2016-10-03] MEDS: CEFAZOLIN IV SCH ×2 (00:30→09:15)
[2016-10-03 00:41] VITALS: BP 108/63; PULSE 80; RESP 16; O2SAT 97
[2016-10-03] MEDS: oxyCODONE-Acetamin 5-325 mg Tablet PO PRN ×4 (02:54→15:56)
--- NOTE | 2016-10-03 04:30 | NUR ---
Activity Patient exhibits high levels of anxiety managed with redirection and pain management, but resulting in very little sleep. c/o periodic burning at the graft site. This RN redirected patient from pulling back the dressing over graft site, discussed increased possibility of infection. Patient able to answer questions appropriately. Unable to sleep for more than an hour at a time. Bed locked, call light within reach, and intentional rounding.
[2016-10-03 05:46] VITALS: BP 127/68; PULSE 84; RESP 16; O2SAT 94
[2016-10-03] MEDS: 0.9% Sodium Chloride 1,000 ML IV SCH ×2 (06:08→18:18)
[2016-10-03 06:10] LABS: BASOPHILS % (AUTO) 0.2 % (0-3); EOSINOPHILS % (AUTO) 0.2 % (0-5); MONOCYTES % (AUTO) 7.2 % (4-12); Mean Corpuscular Volume 96.3 fL (81-100); NEUTROPHILS % (AUTO) 84.4 % (40-74); Platelet Count 251 bil/L (150-400)
[2016-10-03] MEDS: hydrOXYzine Pamoate 25 mg Capsule PO PRN ×3 (07:31→15:56)
[2016-10-03 08:07] VITALS: BP 148/77; PULSE 77; RESP 18; O2SAT 99
[2016-10-03] MEDS: Tolterodine ER 2 mg ER24 Capsule PO SCH ×2 (09:17→22:14)
[2016-10-03] MEDS: Venlafaxine XR 75 mg ER24 Capsule PO SCH (09:18)
[2016-10-03] MEDS: Senna-Docusate 8.6-50 mg Tablet PO SCH ×2 (09:19→22:14)
--- NOTE | 2016-10-03 11:20 | NUR ---
Attempted to see pt. this morning at 11am but too painful. RN aware. Pt. on morphine. I did slightly loosen the knee immobilizer for while she's supine to try to alleviate some of the pressure she reports. She lives with her sister in a home with a ramp for entry. She has a tub shower with seat and safety bars. Based on how she's feeling now and extent of injury SNF will likely be the ideal discharge situation if this is available to her. Mj Harvey, OTR/L
--- NOTE | 2016-10-03 13:14 | OP ---
[address] [address] OPERATIVE REPORT PATIENT: THO YADAV : 1960 MR#: [id number] ADMIT: 09/28/2016 JOB ID: [id number] CORRECTED REPORT: DATE OF SURGERY: 10/02/2016 PREOPERATIVE DIAGNOSIS(ES): 1. Left lateral tibial plateau split fracture. 2. Status post fasciotomies with persistent left lateral leg wound. POSTOPERATIVE DIAGNOSIS(ES): 1. Left lateral tibial plateau split fracture. 2. Status post fasciotomies with persistent left lateral leg wound. PROCEDURE: 1. Open reduction and internal fixation of left lateral tibial plateau fracture. 2. Application of a split-thickness skin graft from the anterior thigh to the lateral leg wound measuring 20 x 7 cm in dimension. SURGEON: Jomar Wu DO. PHOTOGRAPHER AERIAL: Amilcar Torres PA-C. The assistance of Amilcar Torres PA-C was necessary for help with retraction, as well as for harvesting of the split-thickness skin graft and for primary closure at the conclusion of the case. ANESTHESIA: General. HISTORY: The patient is a 55-year-old female that fell about three days prior to presentation. She presented to an outlying facility with significant pain and swelling to the lower leg. She had developed acute compartment syndrome following a tibial plateau fracture and thus, was emergently transferred here for emergent fasciotomies that were performed over the last weekend. She underwent application of a wound VAC following the fasciotomies. She was taken back for a secondary surgery for repeat irrigation and for closure of the medial wound. The lateral wound still required closure, as it was unable to be closed without significant undue tension. I discussed with the patient the risks, benefits, alternatives and indications to proceed with open reduction and internal fixation of left lateral tibial plateau fracture, with split-thickness skin graft from the thigh to the lateral leg. She understood the risks to include, but not limited to, neurovascular injury, tendon injury, infection, failure of fixation, stiffness, persistent pain which may require further intervention. The patient had all questions answered. Consent was signed and placed in the chart. PROCEDURE IN DETAIL: The patient was brought to the operating suite and placed supine on the operating room table. Surgical time-out performed. Everyone in the room was in agreement. After appropriate anesthesia was obtained, the left lower leg was then prepped and draped in a sterile fashion. The patient's plateau was approached first with a short hockey-stick type incision to the proximal lateral aspect of the knee. Dissection was carried down through the fascia and aimed at Gerdy tubercle. The most proximal aspect of the anterior leg muscles were then elevated off of the proximal lateral tibia. The fracture site was identified. A manual reduction was then performed. Views on fluoroscopy were used to verify acceptable reduction. This was followed by application of a Synthes proximal lateral tibia locking plate. The plate was first affixed with a cortical screw to pull the plate to the lateral cortex of the proximal tibia to act as a buttress plate. This was followed by nonlocking screws that rafted just underneath the articular surface of the proximal tibia. Completion of fixation was then performed utilizing a combination of locking and nonlocking screws. Copious irrigation was then performed. Multiple views were used to verify anatomic reduction, appropriate placement of the hardware and appropriate length of the screws. The fascia was then closed with 0 Vicryl, followed by 2-0 Vicryl for the subcutaneous tissues, and 3-0 nylon in a vertical mattress fashion. Attention was then turned towards harvesting for the split-thickness skin graft. The defect of the lateral leg measured 20 x cm in dimension. A split-thickness skin graft was then harvested from the anterior thigh. This was meshed to a 1:1.5 ratio. Split-thickness skin graft was then inset to the lateral wound, secured around the periphery with chromic, as well as meri. A Xeroform was then applied overlying the split-thickness skin graft, and a wound VAC placed overlying the Xeroform. The donor site was then addressed utilizing Tisseel to achieve hemostasis, followed by application of a Mepilex dressing. The patient was then placed into a well-padded, well-molded short-leg stirrup splint and back into her knee immobilizer. ESTIMATED BLOOD LOSS: 50 cc. COMPLICATIONS: None. DISPOSITION: The patient tolerated the procedure well. Anesthesia was reversed. The patient was transferred to the PACU for recovery. IMPLANTS: A Synthes proximal lateral tibial locking plate with combination of locking and nonlocking screws. POSTOPERATIVE PLAN: The patient can be discharged home or to a skilled facility as long as they can approve for the wound VAC. The wound VAC, as well as the splint and knee mobilizer, need to remain on all times until she can follow up in my office in five days. At that time, I will assess the split-thickness skin graft and have her start working on local dressing changes. Corrected by RONY 10/09/16 at 2:54pm Corrected DOS.
--- NOTE | 2016-10-03 14:01 | PCM.PNMED ---
Subjective Date of Service Oct 03, 2016 Exam Vital Signs Vital Sign - Last Date Time Temp Pulse Resp B/P Pulse Ox O2 Delivery O2 Flow Rate FiO2 10/03/16 08:07 36.9 77 18 148/77 99 Room Air 10/02/16 18:01 3.00 Intake and Output 10/02/16 10/02/16 10/03/16 Cumulative From/Thru 15:00 23:00 07:00 09/28/16 01:11 - 10/03/16 06:05 Intake Total 750 ml 550 ml 1064 ml 71201 ml Output Total 1300 ml 1150 ml 76363 ml Balance 750 ml -750 ml -86 ml 747 ml Intake Oral 400 ml 200 ml 6398 ml IV Total 750 ml 150 ml 864 ml 4489 ml Output Urine Total 925 ml 1150 ml 9215 ml Stool Total 0 ml 0 ml Drainage Total 275 ml 825 ml Estimated Blood Loss 100 ml 100 ml # Bowel Movements 0 Lab and Diagnostics Result Diagram: 10/03/16 0540 09/29/16 0533 X-Rays, CTs and MRIs PROCEDURE: CT KNEE LEFT W/O CONTRAST ([id number]) INDICATIONS: tibial plateau fracture TECHNIQUE: Noncontrast 1-1.5 mm axial sections acquired from the mid-patella to the proximal tibia, with coronal and sagittal reformats. COMPARISON: [facility], CR, XR TIBIA FIBULA 2VW LT, 09/28/2016, 1: 24. FINDINGS: Image quality: Excellent. Bones: There is a comminuted moderately displaced fracture of the lateral tibial plateau, predominantly posteriorly with extension to the tibial spines anteriorly and posteriorly. There is mild angulation of the posterior aspect of the lateral tibial plateau, with roughly 3-4 mm of depression of the lateral tibial plateau. There is a mildly displaced comminuted fibular head fracture. Soft tissues: Soft tissue gas is present both medially and laterally, indicating an open fracture. A knee joint effusion is present. IMPRESSION: 1. Tibial plateau fracture as above. 2. Fibular head fracture. 3. Knee joint effusion. Dictated by: Lety Hartmann M.D. on 09/28/2016 at 9:30 Approved by: Lety Hartmann M.D. on 09/28/2016 at 9:33 Assessment & Plan 55yoF with PMH remarkable for stage three colorectal adenocarcinoma with partial colostomy who presents with 3 days of left leg pain, swelling, and numbness, currently being treated with emergent fasciotomy for left lower leg compartment syndrome. 1. Acute Left Lower Extremity Compartment Syndrome secondary to left tibial plateau fx - s/p left lower extremity fasciotomy on 09/28/2016 - has 2 returns to the operating room planned for today and of this week. - on wound vac - further management per primary ortho team -Had I&D done on Thursday by or thorough and plan to redo today. Per Ortho today: POSTOPERATIVE PLAN: The patient can be discharged home or to a skilled facility as long as they can approve for the wound VAC. The wound VAC, as well as the splint and knee mobilizer, need to remain on all times until she can follow up in my office in five days. At that time, I will assess the split-thickness skin graft and have her start working on local dressing changes. Jomar uW DO 10/03/16 1240 2. acute left lateral tibial plateau and Proximal left fibular head fracture - further management per ortho - c/w supportive care 3. History of Stage III colorectal adenocarcinoma - previously treated with neoadjuvant chemoradiation followed by APR and colostomy with additional chemotherapy with FULFOX - currently undergoing radiation therapy. Radiation oncologist is Dr. Bolivar ( ext 5). Try to contact and update tomorrow (I wasn't able to connect today) 4. peripheral neuropathy, chronic - gabapentin 600mg TID - nortriptyline 10mg HS [facility] records indicate may be BID dosing however patient is too sedated to confirm 7. HTN, chronic - Amlodipine 10mg daily 8. Anxiety and Depression, chronic - Effexor 225mg q day - nortriptyline 10mg HS [facility] records indicate may be BID dosing however patient is too sedated to confirm 9. Hypothyroidism, chronic - Levothyroxine 88mcg daily 10. stress incontinence, chronic - nortriptyline 10mg HS [facility] records indicate may be BID dosing however patient is too sedated to confirm - Tolterodine 2mg BID 11. Anemia, present on admission, Check iron studies. Iron saturation came back low but low so we will start on ferrous sulfate 325 mg by mouth daily. Dispo: per primary ortho team GI Prophylaxis: H2 guero VTE Prophylaxis: Sub-Q Enoxaparin (40 mg subcutaneous daily.), SCDs (SCD and right lower extremity.) VTE Mechanical Devices: Intermittant Pneumatic CD Chloe Tolbert MD Oct 03, 2016 14:01
--- NOTE | 2016-10-03 14:26 | NUR ---
spiritual care; follow up pt in pain, described unaddressed pain since 5 am. Pt coping through describing, distraction and crying. Nurse attentive to pain and management options. pt received wound care while i was in room, invited me to stay as she continued to reflect on social situation and her spiritual values. Pt expressed great relief as dressing removed/changed. Pt also appeared to be experience relief as she better understood her injury and healing process. Pt exploring options about housing/community etc as she looks toward longer term health and addressing current stressors. will plan to continue to follow.
--- NOTE | 2016-10-03 14:49 | PCM.PNORTH ---
Subjective Date of Service: Oct 03, 2016 Visit Information: Reason for Visit Compartment Syndrome L Lower Leg Surgery/Surgery Date Post-Op Day # Date of Admission: Sep 28, 2016 at 01:51 Hospital Day # Subjective Found patient awake and alert and sitting up in bed. Patient complains of some moderate pain at this time but is in good spirits and very talkative. Patient still has some difficulty remembering details secondary to what she calls" chemo brain". Found patient with her knee immobilizer having been removed and her leg lying in bed freely with ice on it. I have explained to the patient today that she had a large bony repair at the knee and that she needs the immobilizer as a cast to maintain the position of her leg. I have asked her to keep this on at all times and told her that if she is lying quietly in bed she may open the device to put ice on her knee. We have also discussed that she should have no physical therapy regarding the left lower extremity and that she should not be attempting gait at this time. I have advised her that she may perform upper limb exercises in bed and she may perform some right leg exercises but no stress to the left leg. Postop General: No Shortness of Breath, No Chest Pain Pain Management: PO, IV Push Objective Exam Objective Orientation: Alert and oriented 3 and pleasant. Somewhat forgetful secondary to "chemo brain". Dressing: Interoperative dressing and wound VAC are intact Wound: Skin graft wounds are visualized today. Closure of fasciotomy and tibial plateau ORIF wound are not well visualized today. Compartments: Calf and thigh are soft. There is tenderness about the calf and thigh secondary to surgical procedures. Mobility/sensation: Mobility and sensation are intact left lower extremity distally per baseline. Patient relates history of PN. Abduction wedge: None VAL hose: None Mcpherson: In place and working Wound VAC: In place and working Drain: None Gait: None Vital Signs and I/O Vital Sign - Last Date Time Temp Pulse Resp B/P Pulse Ox O2 Delivery O2 Flow Rate FiO2 10/03/16 08:07 36.9 77 18 148/77 99 Room Air 10/02/16 18:01 3.00 Intake and Output 10/02/16 10/02/16 10/03/16 Cumulative From/Thru 15:00 23:00 07:00 09/28/16 01:11 - 10/03/16 06:05 Intake Total 750 ml 550 ml 1064 ml 74197 ml Output Total 1300 ml 1150 ml 89145 ml Balance 750 ml -750 ml -86 ml 747 ml Intake Oral 400 ml 200 ml 6398 ml IV Total 750 ml 150 ml 864 ml 4489 ml Output Urine Total 925 ml 1150 ml 9215 ml Stool Total 0 ml 0 ml Drainage Total 275 ml 825 ml Estimated Blood Loss 100 ml 100 ml # Bowel Movements 0 Lab & Micro Results Laboratory Tests Test 10/03/16 05:40 White Blood Count 6.7th/mm3 (3.8-10.1) Red Blood Count 2.41mil/mm3 (3.90-5.20) Hemoglobin 7.7g/dL (12.0-15.6) Hematocrit 23.2% (35.0-46.0) Mean Corpuscular Volume 96.3fL (81-100) Mean Corpuscular Hemoglobin 32.0pg (27.0-35.0) Mean Corpuscular Hemoglobin Concent 33.2% (32.0-37.0) Red Cell Distribution Width 11.5% (12.3-15.4) Platelet Count 251bil/L (150-400) Neutrophils (%) (Auto) 84.4% (40-74) Lymphocytes (%) (Auto) 7.8% (14-46) Monocytes (%) (Auto) 7.2% (4-12) Eosinophils (%) (Auto) 0.2% (0-5) Basophils (%) (Auto) 0.2% (0-3) Result Diagram: 10/03/16 0540 09/29/16 0533 General Appearance: Alert, Oriented X3, Cooperative, No Acute Distress Postop Sensory Motor: Distal Motor Intact, Movement in Toes, Distal Sensation Intact SURGICAL WOUND : Drain Location Body Site: Left Lower Leg Wound Drainage Type: Wound Vac Activity: Activity per PT (no physical therapy regarding the left lower leg and no physical therapy for gait. Patient may perform right leg foot weight bearing and isometric exercises and may perform upper limb exercises in bed.) Catheters: Urethral [address] Way Mcpherson Assessment & Plan Plan Postop day # 1 from left tibia fasciotomy closure and skin grafting from anterior proximal thigh and tibial plateau fracture ORIF performed on [address] Jomar Wu. Weight bearing status: She should remain strictly nonweightbearing bilaterally until cleared by Dr. Jomar venegas to pursue weightbearing at the right lower extremity only. Mobility aid: None Immobilization: Knee immobilizer should remain in place at all times secondary to ORIF of the proximal tibia. This may be opened for icing and then resecured after icing. Precautions: No flexion stress and no medial and lateral stress should be applied to the left knee. This knee should be kept essentially straight and in neutral position in bed. Physical therapy: No physical therapy as of this time. Pain control: Pain control as needed. Patient should wean from IV pain medications as soon as possible. DVT prophylaxis: Lovenox 40 mg subcutaneous daily for DVT prophylaxis Wound care: Wound care daily her wound care service for left lower extremity VAC. VAC should remain in place until Thursday or Thursday of next week at which time Dr. Jomar venegas will see patient and remove the VAC and likely discontinue. Infectious DZ: None Mcpherson: In place and working Dressing: Light dressing at the thigh for skin graft site. Wound VAC in place at lower leg. Drain: None Abduction wedge: None VAL hose: None Nursing communication: Nursing please encourage patient to place no stress whatsoever on left lower leg and to maintain knee immobilizer in place secondary to ORIF at proximal tibia adjacent to the knee joint. 2-week follow-up: TBD 6-week follow-up: TBD Plan: Due to inability to secure authorization for patient to take her wound VAC home, patient will remain in-house through the weekend and Dr. Jomar Wu will see her on 10/07/2016 or 10/08/2017 for removal of wound VAC and ideally discontinuing of wound VAC and discharge from hospital. Fact must remain in place and working for at least 5 days post graft placement. Orthopedics thanks hospitalist service for their help in the medical management of this patient. Discharge instructions: Patient should be strict nonweightbearing at the left lower extremity. Discharge plan: Anticipate discharge on Thursday or Thursday of next week, to 717 or [address] Jomar Wu. VTE Prophylaxis: Sub-Q Enoxaparin (40 mg subcutaneous daily.), SCDs (SCD and right lower extremity.) Krish Aguillon PA-C Oct 03, 2016 14:26
[2016-10-03 14:52] VITALS: BP 131/68; PULSE 76; RESP 18; O2SAT 100
--- NOTE | 2016-10-03 16:24 | NUR ---
Wound Care Rounded on patient to ensure NPWT was operational over her graft sight, Pt reporting severe pain at her calf and ankle, complete resolution with removal of her plaster splint. NPWT was maintaining a good seal at her lateral leg wound with minimal (<100 cc) of drainage in canister. Graft harvest site dressing had slipped off of the site, redressed this with a Vaseline gauze covered with clear drape with a drain hole distally and an abd pad placed to catch any drainage. will follow up on Thursday.
--- NOTE | 2016-10-03 17:25 | PCM.PNORTH ---
Subjective Date of Service: Oct 03, 2016 Visit Information: Reason for Visit Compartment Syndrome L Lower Leg Surgery/Surgery Date Post-Op Day # Date of Admission: Sep 28, 2016 at 01:51 Hospital Day # Subjective Pt s/e. She states she is having pain mainly to the anterolateral knee overlying the ORIF. She states wound care was just in and removed the splint as well as changed the donor site dressing Postop General: No Shortness of Breath, No Chest Pain Pain Management: PO, IV Push Objective Exam Objective Gen - alert, NAD Ext- tegaderm intact to thigh donor site Vac intact to left leg STSG site Intact seal Vital Signs and I/O Vital Sign - Last Date Time Temp Pulse Resp B/P Pulse Ox O2 Delivery O2 Flow Rate FiO2 10/03/16 14:52 36.7 76 18 131/68 100 Room Air 10/02/16 18:01 3.00 Intake and Output 10/02/16 10/02/16 10/03/16 Cumulative From/Thru 15:00 23:00 07:00 09/28/16 01:11 - 10/03/16 06:05 Intake Total 750 ml 550 ml 1064 ml 24182 ml Output Total 1300 ml 1150 ml 64996 ml Balance 750 ml -750 ml -86 ml 747 ml Intake Oral 400 ml 200 ml 6398 ml IV Total 750 ml 150 ml 864 ml 4489 ml Output Urine Total 925 ml 1150 ml 9215 ml Stool Total 0 ml 0 ml Drainage Total 275 ml 825 ml Estimated Blood Loss 100 ml 100 ml # Bowel Movements 0 Lab & Micro Results Laboratory Tests Test 10/03/16 05:40 White Blood Count 6.7th/mm3 (3.8-10.1) Red Blood Count 2.41mil/mm3 (3.90-5.20) Hemoglobin 7.7g/dL (12.0-15.6) Hematocrit 23.2% (35.0-46.0) Mean Corpuscular Volume 96.3fL (81-100) Mean Corpuscular Hemoglobin 32.0pg (27.0-35.0) Mean Corpuscular Hemoglobin Concent 33.2% (32.0-37.0) Red Cell Distribution Width 11.5% (12.3-15.4) Platelet Count 251bil/L (150-400) Neutrophils (%) (Auto) 84.4% (40-74) Lymphocytes (%) (Auto) 7.8% (14-46) Monocytes (%) (Auto) 7.2% (4-12) Eosinophils (%) (Auto) 0.2% (0-5) Basophils (%) (Auto) 0.2% (0-3) Result Diagram: 10/03/16 0540 09/29/16 0533 SURGICAL WOUND : Drain Location Body Site: Left Lower Leg Wound Drainage Type: Wound Vac Activity: Activity per PT (no physical therapy regarding the left lower leg and no physical therapy for gait. Patient may perform right leg foot weight bearing and isometric exercises and may perform upper limb exercises in bed.) Catheters: Urethral [address] Mcpherson Assessment & Plan Impression POD #1 s/p ORIF L lateral tibial plateau fracture and stsg from thigh to leg Problems: Plan I was not informed of the removal of the splint. Pt is to have ankle and knee immobilized until graft can be assessed. No ROM to ankle or knee NWB to L LE, no wound care Ordered a fracture boot for patient to wear in place of splint Boot and knee immobilizer must stay on at all times Vac dressing and STSG will be evaluated in 5 days as pt is not approved for home vac use, will be able to be d/c after likely next Wed VTE Prophylaxis: Sub-Q Enoxaparin (40 mg subcutaneous daily.), SCDs (SCD and right lower extremity.) Jomar Wu DO Oct 03, 2016 17:25
[2016-10-03] MEDS: oxyCODONE-Acetamin 10-325 mg Tablet PO PRN (18:18)
--- NOTE | 2016-10-03 19:25 | NUR ---
Pain Patient continues to have some pain to the lower left extremity. Orderers received for increased medications, patient states that increased dosage is helpful to alleviate pain. Care is ongoing.
[2016-10-03 19:49] VITALS: BP 118/59; PULSE 91; RESP 20; O2SAT 98
[2016-10-03] MEDS: diphenhydrAMINE 25 mg Capsule PO PRN (21:13)
[2016-10-04] MEDS: oxyCODONE-Acetamin 10-325 mg Tablet PO PRN ×4 (00:21→18:47)
[2016-10-04] MEDS: Sodium Chloride LOK Flush 10 mL Syringe IV SCH ×3 (00:30→16:30)
[2016-10-04 05:16] VITALS: BP 152/82; PULSE 62; RESP 20; O2SAT 95
[2016-10-04] MEDS: diphenhydrAMINE 25 mg Capsule PO PRN (05:21)
[2016-10-04] MEDS: 0.9% Sodium Chloride 1,000 ML IV SCH ×2 (06:07→18:12)
--- NOTE | 2016-10-04 07:33 | NUR ---
Pain Pain continues to be main concern. Patient c/o some drainage from graft site leaking near inner thigh; resolved with towel. Signs posted instructing no one to touch, move or replace the immobilizer, dressings, or boot, has not discouraged patient from attempting to try. Able to get some sleep as pain was well managed.
[2016-10-04] MEDS: Tolterodine ER 2 mg ER24 Capsule PO SCH ×2 (08:18→21:29)
[2016-10-04] MEDS: Venlafaxine XR 75 mg ER24 Capsule PO SCH (08:19)
[2016-10-04] MEDS: Senna-Docusate 8.6-50 mg Tablet PO SCH ×2 (08:20→21:29)
--- NOTE | 2016-10-04 09:21 | PCM.PNMED ---
Subjective Date of Service Oct 04, 2016 Subjective - Pt seen and examined this morning. Not in distress. - States that she is doing much better than yesterday. Exam Vital Signs Vital Sign - Last Date Time Temp Pulse Resp B/P Pulse Ox O2 Delivery O2 Flow Rate FiO2 10/04/16 05:16 36.9 62 20 152/82 95 Room Air 10/02/16 18:01 3.00 Intake and Output 10/03/16 10/03/16 10/04/16 Cumulative From/Thru 15:00 23:00 07:00 09/28/16 01:11 - 10/04/16 06:45 Intake Total 3210 ml 516 ml 11976 ml Output Total 2125 ml 50071 ml Balance 1085 ml 516 ml 2348 ml Intake Oral 2200 ml 8598 ml IV Total 1010 ml 516 ml 6015 ml Output Urine Total 2125 ml 71352 ml Stool Total 0 ml Drainage Total 825 ml Estimated Blood Loss 100 ml # Bowel Movements 0 Exam Constitutional: Middle-aged woman in no acute distress Head: Normocephalic atraumatic Chest: Clear to auscultation Cor: Regular rate and rhythm S1-S2 without murmur Abdomen soft nontender bowel sounds present Extremities no edema noted in her feet bilaterally she does have left-sided dressed and splinted and right side has SCD. Psych: Mood and affect are appropriate Neuro: Alert and oriented 3, motor strength is intact bilaterally Lab and Diagnostics Result Diagram: 10/03/16 0540 09/29/16 0533 X-Rays, CTs and MRIs PROCEDURE: CT KNEE LEFT W/O CONTRAST (56211) INDICATIONS: tibial plateau fracture TECHNIQUE: Noncontrast 1-1.5 mm axial sections acquired from the mid-patella to the proximal tibia, with coronal and sagittal reformats. COMPARISON: [facility], CR, XR TIBIA FIBULA 2VW LT, 09/28/2016, 1: 24. FINDINGS: Image quality: Excellent. Bones: There is a comminuted moderately displaced fracture of the lateral tibial plateau, predominantly posteriorly with extension to the tibial spines anteriorly and posteriorly. There is mild angulation of the posterior aspect of the lateral tibial plateau, with roughly 3-4 mm of depression of the lateral tibial plateau. There is a mildly displaced comminuted fibular head fracture. Soft tissues: Soft tissue gas is present both medially and laterally, indicating an open fracture. A knee joint effusion is present. IMPRESSION: 1. Tibial plateau fracture as above. 2. Fibular head fracture. 3. Knee joint effusion. Dictated by: Lety Hartmann M.D. on 09/28/2016 at 9:30 Approved by: Lety Hartmann M.D. on 09/28/2016 at 9:33 Assessment & Plan 55yoF with PMH remarkable for stage three colorectal adenocarcinoma with partial colostomy who presents with 3 days of left leg pain, swelling, and numbness, currently being treated with emergent fasciotomy for left lower leg compartment syndrome. 1. Acute Left Lower Extremity Compartment Syndrome secondary to left tibial plateau fx - s/p left lower extremity fasciotomy on 09/28/2016 - on wound vac - further management per primary ortho team Per Ortho "Pt is to have ankle and knee immobilized until graft can be assessed. No ROM to ankle or knee NWB to L LE, no wound care Ordered a fracture boot for patient to wear in place of splint Boot and knee immobilizer must stay on at all times Vac dressing and STSG will be evaluated in 5 days as pt is not approved for home vac use, will be able to be d/c after likely next Wed" Jomar Wu DO 2. acute left lateral tibial plateau and Proximal left fibular head fracture - further management per ortho - c/w supportive care 3. History of Stage III colorectal adenocarcinoma - previously treated with neoadjuvant chemoradiation followed by APR and colostomy with additional chemotherapy with FULFOX - currently undergoing radiation therapy. Radiation oncologist is Dr. Bolivar ( ext 5). 4. peripheral neuropathy, chronic - gabapentin 600mg TID - nortriptyline 10mg HS [facility] records indicate may be BID dosing however patient is too sedated to confirm 7. HTN, chronic - Amlodipine 10mg daily 8. Anxiety and Depression, chronic - Effexor 225mg q day - nortriptyline 10mg HS [facility] records indicate may be BID dosing however patient is too sedated to confirm 9. Hypothyroidism, chronic - Levothyroxine 88mcg daily 10. stress incontinence, chronic - nortriptyline 10mg HS [facility] records indicate may be BID dosing however patient is too sedated to confirm - Tolterodine 2mg BID GI Prophylaxis: H2 guero VTE Prophylaxis: Sub-Q Enoxaparin (40 mg subcutaneous daily.), SCDs (SCD and right lower extremity.) VTE Mechanical Devices: Intermittant Pneumatic CD Resuscitation Status: CPR: Attempt Resuscitation Diaz Hartman MD Oct 04, 2016 09:21
[2016-10-04 09:53] VITALS: BP 119/69; PULSE 85; RESP 18; O2SAT 100
--- NOTE | 2016-10-04 12:13 | PCM.PNORTH ---
Subjective Date of Service: Oct 04, 2016 Visit Information: Reason for Visit Compartment Syndrome L Lower Leg Surgery/Surgery Date Post-Op Day # 2 Date of Admission: Sep 28, 2016 at 01:51 Hospital Day # Subjective Patient is complaining that her dressings or leaking. She has a towel that she has had to put at the most proximal end of the incision as it is leaking at the thigh crease. She is concerned that it is infected and admits she has been poking it and "trying to milk it." I assured the patient that there were no signs of infection and encouraged her to avoid disrupting her dressings. Postop General: No Shortness of Breath, No Chest Pain, Good Appetite Pain Management: PO, IV Push Objective Exam Objective Patient sitting up in bed Vital Signs and I/O Vital Sign - Last Date Time Temp Pulse Resp B/P Pulse Ox O2 Delivery O2 Flow Rate FiO2 10/04/16 09:53 36.9 85 18 119/69 100 Room Air 10/02/16 18:01 3.00 Intake and Output 10/03/16 10/03/16 10/04/16 Cumulative From/Thru 15:00 23:00 07:00 09/28/16 01:11 - 10/04/16 06:45 Intake Total 3210 ml 516 ml 62849 ml Output Total 2125 ml 07316 ml Balance 1085 ml 516 ml 2348 ml Intake Oral 2200 ml 8598 ml IV Total 1010 ml 516 ml 6015 ml Output Urine Total 2125 ml 19122 ml Stool Total 0 ml Drainage Total 825 ml Estimated Blood Loss 100 ml # Bowel Movements 0 Result Diagram: 10/03/16 0540 09/29/16 0533 General Appearance: Alert, Oriented X3, Cooperative, No Acute Distress Extremities: Distal Pulses Palpable, Warm, No Compartment Syndrom Noted, Tenderness/Swelling Noted Postop Sensory Motor: Distal Motor Intact, Movement in Toes, Distal Sensation Intact, NVI Distally SURGICAL WOUND : Wound Location/Description Most proximal portion of dressing was no longer adhered. I reinforced it with additional Tegaderms. Knee immobilizer and boot are in place. Drain Location Body Site: Left Lower Leg Incision General Appearance: Wound Vac, Area of Swelling Dressing & Drainage Status: Reinforced, Serosanguineous Drainage, No Odor, Purulent Drainage Noted Wound Drainage Type: Wound Vac Activity: Activity per PT (no physical therapy regarding the left lower leg and no physical therapy for gait. Patient may perform right leg foot weight bearing and isometric exercises and may perform upper limb exercises in bed.) Catheters: Urethral 2 Way Mcpherson (Discontinue today) Assessment & Plan Impression POD #2 s/p ORIF L lateral tibial plateau fracture and stsg from thigh to le Problems: Plan Please remove Mcpherson catheter today. Patient will likely have to use bedpan if she has not been able to get out of bed. Hopefully after being seen by PT, patient will be able to safely use the commode, however, if she cannot do this without WB on the LLE, then she will have to use the bed akbar. Weightbearing: Nonweightbearing on the lower left extremity. DVT prophylaxis: Lovenox 40 mg subcutaneous 2 weeks BY aspirin 325 mg twice a day 4 weeks Physical therapy: No physical therapy regarding the left lower leg and no physical therapy for gait. Patient may perform right leg foot weight bearing and isometric exercises and may perform upper limb exercises in bed. Immobilization: Patient is to remain in straight leg brace and boot at all times. Patient is to have no range of motion to ankle or knee. Wound care: Vac dressing and STSG will be evaluated in 5 days as pt is not approved for home vac use, will be able to be d/c after likely next Wed Analgesia: Continue oral pain manangement Discharge plan: Discharge home vs SNF after wound vac has been removed (around POD#5, Thursday10/07/16) Follow-up plan: TBD VTE Prophylaxis: Sub-Q Enoxaparin (40 mg subcutaneous daily.), SCDs (SCD and right lower extremity.) Resuscitation Status: CPR: Attempt Resuscitation Kaylie Henderson PA-C Oct 04, 2016 12:13
--- NOTE | 2016-10-04 14:16 | NUR ---
Social Work: Readiness for discharge Data & Assessment: EMR Reviewed. Patient is on her 6 day of hospitalization for compartment syndrome l lower leg. SW met with patient at bedside to discuss discharge plan and patient is aware that the physician ordered a wound vac for home and the patient does not have insurance to pay for the wound vac. Patient is aware that Dr. Wu wants her to stay at the hospital with her wound vac and he will see her on Thursday or Thursday and notify her if she is ready for discharge. SRAVAN will continue to follow patient. Plan: will see the patient on Thursday or Thursday and notify her when she can discharge. It is likely that patient will discharge home with no needs from SRAVAN via POV. SW will continue to follow. Georgia Corrales, Ar[place], ACM
[2016-10-04] MEDS: hydrOXYzine Pamoate 25 mg Capsule PO PRN (15:31)
[2016-10-04 16:13] VITALS: BP 104/61; PULSE 87; RESP 16; O2SAT 100
--- NOTE | 2016-10-04 17:47 | NUR ---
PT order received telephone call with SPENCER Lott clearing up confusion RE: previous recommendation by wound care to not allow LLE to be in a dependent position and clearing pt for bedside transfers with PT with recommendations as previously written by PAC in EMR: "No physical therapy regarding the left lower leg and no physical therapy for gait. Patient may perform right leg foot weight bearing and isometric exercises and may perform upper limb exercises in bed."; unable to f/u today sec to high number of evals; f/u 2/5
--- NOTE | 2016-10-04 19:26 | NUR ---
Bowel Movement, Block Catheter Removal, Pain Block catheter removed this shift. Patient reported no pain with block removal and was able to urinate within 2 hours of removal using bedpan. Patient reports baseline incontinence and requested brief and pad. Patient had a small, formed bowel movement in colostomy bag this shift. Patient continues to have pain in the lower left extremity, but reports less than yesterday. Patient requesting fewer doses of IV pain medication. Care is ongoing.
[2016-10-04 19:34] VITALS: BP 146/76; PULSE 95; RESP 18; O2SAT 96
[2016-10-05] MEDS: Sodium Chloride LOK Flush 10 mL Syringe IV SCH ×3 (01:00→16:30)
--- NOTE | 2016-10-05 01:24 | NUR ---
PAIN; rx effective for skin graft donor site discomfort. Pt states full sensation left leg.
[2016-10-05 05:16] VITALS: BP 126/76; PULSE 80; RESP 17; O2SAT 95
[2016-10-05] MEDS: oxyCODONE-Acetamin 10-325 mg Tablet PO PRN ×3 (05:18→19:06)
[2016-10-05 06:19] LABS: BASOPHILS % (AUTO) 0.2 % (0-3); EOSINOPHILS % (AUTO) 2.7 % (0-5); MONOCYTES % (AUTO) 9.7 % (4-12); Mean Corpuscular Hemoglobin 32.1 pg (27.0-35.0); Mean Corpuscular Volume 97.4 fL (81-100); Platelet Count 436 bil/L (150-400)
[2016-10-05] MEDS: 0.9% Sodium Chloride 1,000 ML IV SCH ×2 (07:07→19:37)
[2016-10-05] MEDS: Venlafaxine XR 75 mg ER24 Capsule PO SCH (08:27)
[2016-10-05] MEDS: Tolterodine ER 2 mg ER24 Capsule PO SCH ×2 (08:27→21:59)
[2016-10-05] MEDS: Senna-Docusate 8.6-50 mg Tablet PO SCH ×2 (08:29→21:58)
[2016-10-05] MEDS: Polyethylene Glycol (PEG) 17 Gm Powder PO PRN (08:33)
--- NOTE | 2016-10-05 08:45 | PCM.PNMED ---
Subjective Date of Service Oct 05, 2016 Subjective - Pt seen and examined this morning. Denies any new complaints. - No acute events over night, Exam Vital Signs Vital Sign - Last Date Time Temp Pulse Resp B/P Pulse Ox O2 Delivery O2 Flow Rate FiO2 10/05/16 05:16 36.9 80 17 126/76 95 Room Air 10/02/16 18:01 3.00 Intake and Output 10/04/16 10/04/16 10/05/16 Cumulative From/Thru 15:00 23:00 07:00 09/28/16 01:11 - 10/05/16 05:16 Intake Total 800 ml 1000 ml 400 ml 96557 ml Output Total 2550 ml 1300 ml 300 ml 38888 ml Balance -1750 ml -300 ml 100 ml 398 ml Intake Oral 800 ml 1000 ml 400 ml 27765 ml IV Total 6015 ml Output Urine Total 2550 ml 1300 ml 300 ml 01650 ml Stool Total 0 ml 0 ml Drainage Total 825 ml Estimated Blood Loss 100 ml # Bowel Movements 0 Exam Constitutional: Middle-aged woman in no acute distress Head: Normocephalic atraumatic Chest: Clear to auscultation Cor: Regular rate and rhythm S1-S2 without murmur Abdomen soft nontender bowel sounds present Extremities no edema noted in her feet bilaterally she does have left-sided dressed and splinted and right side has SCD. Psych: Mood and affect are appropriate Neuro: Alert and oriented 3, motor strength is intact bilaterally IVs and Medications Medications Reviewed: Medications were reviewed in detail Lab and Diagnostics Result Diagram: 10/05/16 0550 10/05/16 0550 X-Rays, CTs and MRIs PROCEDURE: CT KNEE LEFT W/O CONTRAST (12848) INDICATIONS: tibial plateau fracture TECHNIQUE: Noncontrast 1-1.5 mm axial sections acquired from the mid-patella to the proximal tibia, with coronal and sagittal reformats. COMPARISON: [facility], CR, XR TIBIA FIBULA 2VW LT, 09/28/2016, 1: 24. FINDINGS: Image quality: Excellent. Bones: There is a comminuted moderately displaced fracture of the lateral tibial plateau, predominantly posteriorly with extension to the tibial spines anteriorly and posteriorly. There is mild angulation of the posterior aspect of the lateral tibial plateau, with roughly 3-4 mm of depression of the lateral tibial plateau. There is a mildly displaced comminuted fibular head fracture. Soft tissues: Soft tissue gas is present both medially and laterally, indicating an open fracture. A knee joint effusion is present. IMPRESSION: 1. Tibial plateau fracture as above. 2. Fibular head fracture. 3. Knee joint effusion. Dictated by: Lety Hartmann M.D. on 09/28/2016 at 9:30 Approved by: Lety Hartmann M.D. on 09/28/2016 at 9:33 Assessment & Plan 55year old female with PMH remarkable for stage three colorectal adenocarcinoma with partial colostomy who presents with 3 days of left leg pain, swelling, and numbness, currently being treated with emergent fasciotomy for left lower leg compartment syndrome. 1. Acute Left Lower Extremity Compartment Syndrome secondary to left tibial plateau fx - s/p left lower extremity fasciotomy on 09/28/2016 - on wound vac - further management per primary ortho team Per Ortho Plan "Weightbearing: Nonweightbearing on the lower left extremity. DVT prophylaxis: Lovenox 40 mg subcutaneous 2 weeks BY aspirin 325 mg twice a day 4 weeks Physical therapy: No physical therapy regarding the left lower leg and no physical therapy for gait. Patient may perform right leg foot weight bearing and isometric exercises and may perform upper limb exercises in bed. Immobilization: Patient is to remain in straight leg brace and boot at all times. Patient is to have no range of motion to ankle or knee. Wound care: Vac dressing and STSG will be evaluated in 5 days as pt is not approved for home vac use, will be able to be d/c after likely next Thu Analgesia: Continue oral pain manangement Discharge plan: Discharge home vs SNF after wound vac has been removed (around POD#5, Thursday10/07/16)" 2. acute left lateral tibial plateau and Proximal left fibular head fracture - further management per ortho - c/w supportive care 3. History of Stage III colorectal adenocarcinoma - previously treated with neoadjuvant chemoradiation followed by APR and colostomy with additional chemotherapy with FULFOX - currently undergoing radiation therapy. Radiation oncologist is Dr. Bolivar ( ext 5). 4. peripheral neuropathy, chronic - gabapentin 600mg TID - nortriptyline 10mg HS [facility] records indicate may be BID dosing however patient is too sedated to confirm 7. HTN, chronic - Amlodipine 10mg daily 8. Anxiety and Depression, chronic - Effexor 225mg q day - nortriptyline 10mg HS [facility] records indicate may be BID dosing however patient is too sedated to confirm 9. Hypothyroidism, chronic - Levothyroxine 88mcg daily 10. stress incontinence, chronic - nortriptyline 10mg HS [facility] records indicate may be BID dosing however patient is too sedated to confirm - Tolterodine 2mg BID Discharge plan: Discharge home vs SNF after wound vac has been removed (around POD#5, Thursday10/07/16) Pain Evaluation: Adequate Pain Control GI Prophylaxis: H2 guero VTE Prophylaxis: Sub-Q Enoxaparin (40 mg subcutaneous daily.), SCDs (SCD and right lower extremity.) VTE Mechanical Devices: Intermittant Pneumatic CD Resuscitation Status: CPR: Attempt Resuscitation Diaz Hartman MD Oct 05, 2016 08:45
[2016-10-05 10:19] VITALS: BP 146/79; PULSE 90; RESP 18; O2SAT 99
--- NOTE | 2016-10-05 11:59 | PCM.PNORTH ---
Subjective Date of Service: Oct 05, 2016 Visit Information: Reason for Visit Compartment Syndrome L Lower Leg Surgery/Surgery Date Post-Op Day # 3 Date of Admission: Sep 28, 2016 at 01:51 Hospital Day # Subjective Patient states she got up with PT yesterday and that it was very uncomfortable. Patient has no concerns at this time and is aware of the plan moving forward. Postop General: No Complaints, No Shortness of Breath, No Chest Pain, Good Appetite Pain Management: PO, IV Push Objective Exam Objective Patient sitting up in bed Vital Signs and I/O Vital Sign - Last Date Time Temp Pulse Resp B/P Pulse Ox O2 Delivery O2 Flow Rate FiO2 10/05/16 10:19 37.2 90 18 146/79 99 Room Air 10/02/16 18:01 3.00 Intake and Output 10/04/16 10/04/16 10/05/16 Cumulative From/Thru 15:00 23:00 07:00 09/28/16 01:11 - 10/05/16 05:16 Intake Total 800 ml 1000 ml 400 ml 94633 ml Output Total 2550 ml 1300 ml 300 ml 65834 ml Balance -1750 ml -300 ml 100 ml 398 ml Intake Oral 800 ml 1000 ml 400 ml 68461 ml IV Total 6015 ml Output Urine Total 2550 ml 1300 ml 300 ml 51077 ml Stool Total 0 ml 0 ml Drainage Total 825 ml Estimated Blood Loss 100 ml # Bowel Movements 0 Lab & Micro Results Laboratory Tests Test 10/05/16 05:50 White Blood Count 6.6th/mm3 (3.8-10.1) Red Blood Count 3.08mil/mm3 (3.90-5.20) Hemoglobin 9.9g/dL (12.0-15.6) Hematocrit 30.0% (35.0-46.0) Mean Corpuscular Volume 97.4fL (81-100) Mean Corpuscular Hemoglobin 32.1pg (27.0-35.0) Mean Corpuscular Hemoglobin Concent 33.0% (32.0-37.0) Red Cell Distribution Width 12.0% (12.3-15.4) Platelet Count 436bil/L (150-400) Neutrophils (%) (Auto) 73.0% (40-74) Lymphocytes (%) (Auto) 14.2% (14-46) Monocytes (%) (Auto) 9.7% (4-12) Eosinophils (%) (Auto) 2.7% (0-5) Basophils (%) (Auto) 0.2% (0-3) Sodium Level 144mEq/L (134-144) Potassium Level 4.0mEq/L (3.5-5.2) Chloride Level 100mEq/L (97-108) Carbon Dioxide Level 29mmol/L (18-29) Blood Urea Nitrogen 11mg/dL (6-24) Creatinine 0.68mg/dL (0.57-1.00) Estimat Glomerular Filtration Rate 128mL/min (>59) Glucose Level 107mg/dL (60-99) Calcium Level 8.7mg/dL (8.5-10.1) Result Diagram: 10/05/1650 10/05/1650 General Appearance: Alert, Oriented X3, Cooperative, No Acute Distress Extremities: Distal Pulses Palpable, Thigh & Calf Soft/Nontender Postop Sensory Motor: Distal Motor Intact, Movement in Toes, Distal Sensation Intact SURGICAL WOUND : Wound Location/Description Boot and straight leg brace are in place. No drainage seen around the dressings. Calf soft. Drain Location Body Site: Leg Incision General Appearance: Wound Vac Dressing & Drainage Status: Intact, Serosanguineous Drainage, No Odor, Purulent Drainage Noted Wound Drainage Type: Wound Vac Activity: Activity per PT (no physical therapy regarding the left lower leg and no physical therapy for gait. Patient may perform right leg foot weight bearing and isometric exercises and may perform upper limb exercises in bed.) Assessment & Plan Impression POD#3 s/p ORIF L lateral tibial plateau fracture and stsg from thigh to leg Problems: Plan Nursing may undo velcro over foot to take distal pulses. Weightbearing: Nonweightbearing on the lower left extremity. DVT prophylaxis: Lovenox 40 mg subcutaneous 2 weeks followed by aspirin EC 325 mg twice a day 4 weeks Physical therapy: No physical therapy regarding the left lower leg and no physical therapy for gait. Patient may perform right leg foot weight bearing and isometric exercises and may perform upper limb exercises in bed. Immobilization: Patient is to remain in straight leg brace and boot at all times. Patient is to have no range of motion to ankle or knee. Wound care: Vac dressing and STSG will be evaluated in 5 days as pt is not approved for home vac use, will be able to be d/c after likely next Thu Analgesia: Continue oral pain management Discharge plan: Discharge home vs SNF after wound vac has been removed (around POD#5, Thursday10/07/16) VTE Prophylaxis: Sub-Q Enoxaparin (40 mg subcutaneous daily.), SCDs (SCD and right lower extremity.) Resuscitation Status: CPR: Attempt Resuscitation Kaylie Henderson PA-C Oct 05, 2016 11:59
[2016-10-05] MEDS: hydrOXYzine Pamoate 25 mg Capsule PO PRN ×2 (13:23→19:05)
--- NOTE | 2016-10-05 14:41 | NUR ---
Evaluation completed. Please go to "Notes" then click on "Assessments and Notes" (bottom left corner of screen). Then select appropriate discipline tab on top of screen.
[2016-10-05 16:02] VITALS: BP 169/82; PULSE 90; RESP 19; O2SAT 99
--- NOTE | 2016-10-05 19:54 | NUR ---
Pain, Wound Vac Near end of shift patient reported pain that was not effectively treated with pain medication at the top of her left foot/ankle. Patient reports other pain was managed well with medication. Call made to PA, orders given to examine foot to look for redness or swelling. Before this could be done the wound vac displayed an error message, "potential negative pressure blockage detected", then "therapy interrupted". PA called again, who promptly came to assess leg and fix wound vac. Patient reminded to not move leg or adjust straps. Ice applied to affected site. Care is ongoing.
[2016-10-05 21:26] VITALS: BP 158/82; PULSE 78; RESP 20; O2SAT 99
[2016-10-06] MEDS: Sodium Chloride LOK Flush 10 mL Syringe IV SCH ×3 (01:49→16:58)
[2016-10-06] MEDS: hydrOXYzine Pamoate 25 mg Capsule PO PRN ×3 (01:49→17:41)
[2016-10-06] MEDS: oxyCODONE-Acetamin 10-325 mg Tablet PO PRN ×3 (05:40→20:57)
--- NOTE | 2016-10-06 06:29 | NUR ---
PAIN/WD VAC; pain controlled well. Ortho checks ELENITA Segundo in about 1930 last night and adjusted splint so that wound vac stopped alarming. No further problems this shift.
[2016-10-06 07:13] VITALS: BP 129/68; PULSE 77; RESP 16; O2SAT 98
[2016-10-06] MEDS: 0.9% Sodium Chloride 1,000 ML IV SCH ×2 (08:07→20:37)
[2016-10-06] MEDS: Venlafaxine XR 75 mg ER24 Capsule PO SCH (08:23)
[2016-10-06] MEDS: Tolterodine ER 2 mg ER24 Capsule PO SCH ×2 (08:24→22:34)
[2016-10-06] MEDS: Senna-Docusate 8.6-50 mg Tablet PO SCH ×2 (08:24→20:30)
--- NOTE | 2016-10-06 10:55 | PCM.PNORTH ---
Subjective Date of Service: Oct 06, 2016 Visit Information: Reason for Visit Compartment Syndrome L Lower Leg Surgery/Surgery Date Post-Op Day # Date of Admission: Sep 28, 2016 at 01:51 Hospital Day # Subjective Status post day #4 left tibial plateau fracture ORIF, placement of skin graft over left lower leg wound from compartment syndrome fasciotomy release. Patient states her pain is well controlled though the thigh hurts, she has been working with physical therapy but having hard time ambulating with the big boot on the left foot and not being able to weight-bear. Postop General: No Complaints, No Shortness of Breath, No Chest Pain, Good Appetite Pain Management: PO, IV Push Objective Exam Objective Patient is alert and oriented 3. Answering questions appropriately. Sitting up in bed and not in any acute distress today. Dressing is clean dry and intact. Patient able to wiggle toes. Calf is soft and nontender, pulses intact, sensation is full. Hemoglobin has moved from 7.7-9.9 today, stabilizing. Vital Signs and I/O Vital Sign - Last Date Time Temp Pulse Resp B/P Pulse Ox O2 Delivery O2 Flow Rate FiO2 10/06/16 07:13 36.9 77 16 129/68 98 Room Air 10/02/16 18:01 3.00 Intake and Output 10/05/16 10/05/16 10/06/16 Cumulative From/Thru 15:00 23:00 07:00 09/28/16 01:11 - 10/05/16 20:00 Intake Total 1000 ml 10658 ml Output Total 651 ml 28310 ml Balance 349 ml 747 ml Intake Oral 1000 ml 93193 ml IV Total 6015 ml Output Urine Total 650 ml 74086 ml Stool Total 1 ml 1 ml Drainage Total 825 ml Estimated Blood Loss 100 ml # Bowel Movements 0 Result Diagram: 10/05/16 0550 10/05/16 0550 SURGICAL WOUND : Drain Location Body Site: Leg Incision General Appearance: Wound Vac Dressing & Drainage Status: Intact, Serosanguineous Drainage, No Odor, Purulent Drainage Noted Wound Drainage Type: Wound Vac Activity: Activity per PT (no physical therapy regarding the left lower leg and no physical therapy for gait. Patient may perform right leg foot weight bearing and isometric exercises and may perform upper limb exercises in bed.) Assessment & Plan Impression Patient is status post day #4 left tibial plateau fracture, placement of graft to left lower leg, autograft for compartment syndrome fasciotomy. Patient doing very well, pain is well controlled, not ambulating very well. Still requiring sufficient wound care. Hemoglobin has stabilized. Problems: Plan Nursing may undo velcro over foot to take distal pulses. Weightbearing: Nonweightbearing on the lower left extremity. DVT prophylaxis: Lovenox 40 mg subcutaneous 2 weeks followed by aspirin EC 325 mg twice a day 4 weeks Physical therapy: No physical therapy regarding the left lower leg and no physical therapy for gait. Patient may perform right leg foot weight bearing and isometric exercises and may perform upper limb exercises in bed. Immobilization: Patient is to remain in straight leg brace and boot at all times. Patient is to have no range of motion to ankle or knee. Wound care: Vac dressing and STSG will be evaluated on postop day 5 as pt is not approved for home vac use, will be able to be d/c after likely tomorrow or Thursday. Analgesia: Continue oral pain management Discharge plan: Discharge home vs SNF after wound vac has been removed in 1-[address] Jomar Wu will see and determine, after discussion with wound care for appropriate outpatient management first. VTE Prophylaxis: Sub-Q Enoxaparin (40 mg subcutaneous daily.), SCDs (SCD and right lower extremity.) Resuscitation Status: CPR: Attempt Resuscitation Amilcar Torres PA-C Oct 06, 2016 10:55
[2016-10-06 13:12] VITALS: BP 129/71; PULSE 88; RESP 16; O2SAT 99
--- NOTE | 2016-10-06 16:10 | NUR ---
PAIN/ACTIVITY Patient complained of Left leg pain, primarily at skin graft donor site, 7/10. L LE remains with knee immobilizer in place as well as walking boot. Medicated with percocet 10/325 2 tabs, vistaril as well as morphine IV for breakthrough pain. Combination of medications is effective bringing pain down to 2/10. Worked with PT and OT today and was up to chair with FWW 1 person assist, maintaining NWB on LLE.
--- NOTE | 2016-10-06 16:24 | NUR ---
Social Work Continued Discharge Planning: SW contacted and left voice mail message for [facility], to discuss Medicaid spendown. Therapy notes reflect SNF placement recommendations. [facility] [phone] to possibly consider for swing bed eligibility. SRAAVN faxed clinicals to . [phone]. SW to follow up with rep for possible consideration. SW to follow. PLAN: Referral sent to [facility] for possible swing bed consideration David MARTINEZ
--- NOTE | 2016-10-06 16:48 | PCM.PNMED ---
Subjective Date of Service Oct 06, 2016 Subjective Patient without complaints of chest pain, dyspnea, nausea or vomiting. Having difficulty ambulating with the soft cast she is wearing given her nonweightbearing status on the leg it is difficult as the cast makes this extremity longer and harder to ambulate on Exam Vital Signs Vital Sign - Last Date Time Temp Pulse Resp B/P Pulse Ox O2 Delivery O2 Flow Rate FiO2 10/06/16 13:12 36.8 88 16 129/71 99 Room Air 10/02/16 18:01 3.00 Intake and Output 10/05/16 10/05/16 10/06/16 Cumulative From/Thru 15:00 23:00 07:00 09/28/16 01:11 - 10/05/16 20:00 Intake Total 1000 ml 77271 ml Output Total 651 ml 66321 ml Balance 349 ml 747 ml Intake Oral 1000 ml 16055 ml IV Total 6015 ml Output Urine Total 650 ml 88829 ml Stool Total 1 ml 1 ml Drainage Total 825 ml Estimated Blood Loss 100 ml # Bowel Movements 0 Exam Gen.- A+ O 3 no apparent distress. Thin female sitting up in chair Eyes- open conjunctiva clear, pupils equal nonicteric ENT- ears normal, nose normal Neck- supple/trach midline CVS-normal rate Lungs-normal rate no evidence of accessory muscle usage respiratory distress GI-flat Musc- moving 4, left leg in soft cast with wound VAC attached Neuro- cranial nerves II through XII intact to gross examination, nonfocal Skin- warm and dry, no rashes/lesions/wounds noted Psych- pleasant and appropriate, Lab and Diagnostics Result Diagram: 10/05/16 0550 10/05/16 0550 X-Rays, CTs and MRIs PROCEDURE: CT KNEE LEFT W/O CONTRAST (48245) INDICATIONS: tibial plateau fracture TECHNIQUE: Noncontrast 1-1.5 mm axial sections acquired from the mid-patella to the proximal tibia, with coronal and sagittal reformats. COMPARISON: [facility], CR, XR TIBIA FIBULA 2VW LT, 09/28/2016, 1: 24. FINDINGS: Image quality: Excellent. Bones: There is a comminuted moderately displaced fracture of the lateral tibial plateau, predominantly posteriorly with extension to the tibial spines anteriorly and posteriorly. There is mild angulation of the posterior aspect of the lateral tibial plateau, with roughly 3-4 mm of depression of the lateral tibial plateau. There is a mildly displaced comminuted fibular head fracture. Soft tissues: Soft tissue gas is present both medially and laterally, indicating an open fracture. A knee joint effusion is present. IMPRESSION: 1. Tibial plateau fracture as above. 2. Fibular head fracture. 3. Knee joint effusion. Dictated by: Lety Hartmann M.D. on 09/28/2016 at 9:30 Approved by: Lety Hartmann M.D. on 09/28/2016 at 9:33 Assessment & Plan 55year old female admitted 09/28 w/ L tibial plateau fx that cause compartment syndrome and required fasciotomy 09/28 her sister fell on her. She has done well had a wound VAC and will have that removed 10/07. Disposition is in question. 1. Acute Left Lower Extremity Compartment Syndrome secondary to left tibial plateau fx - s/p left lower extremity fasciotomy on 09/28/2016 - on wound vac - further management per primary ortho team Per Ortho Plan "Weightbearing: Nonweightbearing on the lower left extremity. DVT prophylaxis: Lovenox 40 mg subcutaneous 2 weeks BY aspirin 325 mg twice a day 4 weeks Physical therapy: No physical therapy regarding the left lower leg and no physical therapy for gait. Patient may perform right leg foot weight bearing and isometric exercises and may perform upper limb exercises in bed. Immobilization: Patient is to remain in straight leg brace and boot at all times. Patient is to have no range of motion to ankle or knee. Wound care: Vac dressing and STSG will be evaluated in 5 days as pt is not approved for home vac use, will be able to be d/c after likely next Thu Analgesia: Continue oral pain manangement Discharge plan: Discharge home vs SNF after wound vac has been removed (around POD#5, Thursday10/07/16)" 2. acute left lateral tibial plateau and Proximal left fibular head fracture - further management per ortho - c/w supportive care 3. History of Stage III colorectal adenocarcinoma - previously treated with neoadjuvant chemoradiation followed by APR and colostomy with additional chemotherapy with FULFOX - currently undergoing radiation therapy. Radiation oncologist is Dr. Bolivar ( ext 5). 4. peripheral neuropathy, chronic - gabapentin 600mg TID - nortriptyline 10mg HS [facility] records indicate may be BID dosing however patient is too sedated to confirm 7. HTN, chronic - Amlodipine 10mg daily 8. Anxiety and Depression, chronic - Effexor 225mg q day - nortriptyline 10mg HS [facility] records indicate may be BID dosing however patient is too sedated to confirm 9. Hypothyroidism, chronic - Levothyroxine 88mcg daily 10. stress incontinence, chronic - nortriptyline 10mg HS [facility] records indicate may be BID dosing however patient is too sedated to confirm - Tolterodine 2mg BID Discharge plan: Discharge home vs SNF after wound vac has been removed (around POD#5, Thursday10/07/16) GI Prophylaxis: H2 guero VTE Prophylaxis: Sub-Q Enoxaparin (40 mg subcutaneous daily.), SCDs (SCD and right lower extremity.) VTE Mechanical Devices: Intermittant Pneumatic CD Resuscitation Status: CPR: Attempt Resuscitation Noel Bourgeois MD Oct 06, 2016 16:48
--- NOTE | 2016-10-06 17:59 | NUR ---
spiritual care: follow up conversational visit. pt shared of continued healing process, other concerns and insights as she yordan with past and future hopes. prayer
[2016-10-06 21:40] VITALS: BP 118/71; PULSE 69; RESP 20; O2SAT 100
[2016-10-07] MEDS: Sodium Chloride LOK Flush 10 mL Syringe IV SCH ×3 (00:45→17:05)
--- NOTE | 2016-10-07 03:47 | NUR ---
colostomy/pain pt has complained of pain 7/10 in her graft site and 9/10 at her stoma. graft site has bio-occlusive over it, no signs of infection, complains of it leaking at times, has a towel that she places against her leg to absorb any leakage. pt's stoma has good color, it is dark pink, skin around stoma is intact no signs of irritation but the stoma itself is swollen. at start of shift pt complained of diarrhea said it was irritating her stoma and requested to not have her stool softeners. however later on pt complained that she was passing small very hard stool that was causing her 9/10 pain in her stoma. nurse discussed with pt that it was possible that she was still constipated with hard stool and that the diarrhea was going around it. pt was encouraged to take her stool softeners but she said she wanted to give her stoma a rest tonight and would take them in the morning. she has been receiving Percocet and IV morphine which have effectively reduced her pain. care continues.
[2016-10-07 05:36] LABS: Mean Corpuscular Hemoglobin 32.1 pg (27.0-35.0); Mean Corpuscular Volume 95.1 fL (81-100)
[2016-10-07 06:16] LABS: Magnesium 1.9 mg/dL (1.6-2.6)
[2016-10-07 07:21] VITALS: BP 107/63; PULSE 74; RESP 20; O2SAT 94
[2016-10-07] MEDS: Tolterodine ER 2 mg ER24 Capsule PO SCH ×2 (08:20→20:49)
[2016-10-07] MEDS: Venlafaxine XR 75 mg ER24 Capsule PO SCH (08:21)
[2016-10-07] MEDS: Senna-Docusate 8.6-50 mg Tablet PO SCH ×2 (08:21→20:30)
[2016-10-07] MEDS: hydrOXYzine Pamoate 25 mg Capsule PO PRN ×2 (08:31→20:59)
[2016-10-07] MEDS: 0.9% Sodium Chloride 1,000 ML IV SCH ×2 (09:07→20:50)
[2016-10-07] MEDS: oxyCODONE-Acetamin 10-325 mg Tablet PO PRN ×4 (10:10→21:00)
--- NOTE | 2016-10-07 10:33 | PCM.PNORTH ---
Subjective Date of Service: Oct 07, 2016 Visit Information: Reason for Visit Compartment Syndrome L Lower Leg Surgery/Surgery Date Post-Op Day # 5 Date of Admission: Sep 28, 2016 at 01:51 Hospital Day # Subjective Patient states she is feeling well today. She denies any new symptoms. She states her pain is well controlled. Postop General: No Complaints, No Shortness of Breath, No Chest Pain, Good Appetite Pain Management: PO, IV Push Objective Exam Objective Patient sitting up in bed Vital Signs and I/O Vital Sign - Last Date Time Temp Pulse Resp B/P Pulse Ox O2 Delivery O2 Flow Rate FiO2 10/07/16 07:21 36.9 74 20 107/63 94 Room Air 10/02/16 18:01 3.00 Intake and Output 10/06/16 10/06/16 10/07/16 Cumulative From/Thru 15:00 23:00 07:00 09/28/16 01:11 - 10/06/16 20:30 Intake Total 400 ml 58584 ml Output Total 1250 ml 99842 ml Balance -850 ml -103 ml Intake Oral 400 ml 91459 ml IV Total 6015 ml Output Urine Total 1250 ml 63002 ml Stool Total 1 ml Drainage Total 825 ml Estimated Blood Loss 100 ml # Bowel Movements 0 Lab & Micro Results Laboratory Tests Test 10/07/16 05:10 White Blood Count 4.9th/mm3 (3.8-10.1) Red Blood Count 2.68mil/mm3 (3.90-5.20) Hemoglobin 8.6g/dL (12.0-15.6) Hematocrit 25.5% (35.0-46.0) Mean Corpuscular Volume 95.1fL (81-100) Mean Corpuscular Hemoglobin 32.1pg (27.0-35.0) Mean Corpuscular Hemoglobin Concent 33.7% (32.0-37.0) Red Cell Distribution Width 11.7% (12.3-15.4) Platelet Count 466bil/L (150-400) Sodium Level 145mEq/L (134-144) Potassium Level 4.3mEq/L (3.5-5.2) Chloride Level 103mEq/L (97-108) Carbon Dioxide Level 31mmol/L (18-29) Blood Urea Nitrogen 14mg/dL (6-24) Creatinine 0.65mg/dL (0.57-1.00) Estimat Glomerular Filtration Rate 135mL/min (>59) Glucose Level 101mg/dL (60-99) Calcium Level 8.3mg/dL (8.5-10.1) Magnesium Level 1.9mg/dL (1.6-2.6) Result Diagram: 10/07/1650910/07/16509 General Appearance: Alert, Oriented X3, Cooperative, No Acute Distress Extremities: Distal Pulses Palpable, Warm Postop Sensory Motor: Distal Motor Intact, Movement in Toes, Distal Sensation Intact, NVI Distally SURGICAL WOUND : Drain Location Body Site: leg Incision General Appearance: Wound Vac Dressing & Drainage Status: Intact, Serosanguineous Drainage, No Odor, Purulent Drainage Noted Wound Drainage Type: Wound Vac Activity: Activity per PT (no physical therapy regarding the left lower leg and no physical therapy for gait. Patient may perform right leg foot weight bearing and isometric exercises and may perform upper limb exercises in bed.) Assessment & Plan Impression Patient is status post day #5 left tibial plateau fracture, placement of graft to left lower leg, autograft for compartment syndrome fasciotomy. Patient doing very well, pain is well controlled, not ambulating very well, but is improving. Still requiring sufficient wound care. Hemoglobin has stabilized. Problems: Plan Nursing may undo velcro over foot to take distal pulses. Weightbearing: Nonweightbearing on the lower left extremity. DVT prophylaxis: Lovenox 40 mg subcutaneous 2 weeks followed by aspirin EC 325 mg twice a day 4 weeks Physical therapy: No physical therapy regarding the left lower leg and no physical therapy for gait. Patient may perform right leg foot weight bearing and isometric exercises and may perform upper limb exercises in bed. Immobilization: Patient is to remain in straight leg brace and boot at all times. Patient is to have no range of motion to ankle or knee. Wound care: Vac dressing and STSG will be evaluated today by wound care and Dr. Wu together. Analgesia: Continue oral pain management Discharge plan: Discharge to SNF tomorrow, pending assessment of wound by Dr. Wu this afternoon VTE Prophylaxis: Sub-Q Enoxaparin (40 mg subcutaneous daily.), SCDs (SCD and right lower extremity.) Resuscitation Status: CPR: Attempt Resuscitation Kaylie Henderson PA-C Oct 07, 2016 10:33
--- NOTE | 2016-10-07 11:25 | NUR ---
NUTRITION FOLLOW-UP: ASSESS: 55 yo F admitted for left lower leg compartment syndrome. She is s/p left lower extremity fasciotomy on 09/28/2016, s/p further I and D on 10/02, wound vac in place. Per MD, pt is also currently undergoing radiation for colon ca. PMHX: colorectal Cancer, HTN, anxiety LABS: Reviewed. Na 145 MEDS: Reviewed. GI: ostomy- 0 output recorded, but pt reported diarrhea to RN on 10/06. CURRENT WTS: 49 kg. Admit wt: 48kg. Per chart review, wt has been stable. There is some discrepancy in pt's ht. Usual ht is 60 inches, current ht recorded is 62 inches. BMI may not be accurate DIET: General, Ensure on L tray. PO avg 50% x 5 days. EST. NEEDS: multiple surgeries/healing Kcals: 5382-6429 kcal/day (25-35 kcal/kg BW) Pro: 70-85 g/day (1.5-1.8 g/kg BW) NUTRITION DIAGNOSIS: 1.) Increased nutrient needs related to increased demand for healing as evidence by pt with wound vac and need for multiple surgical procedures --PERSISTS. NUTRITION INTERVENTION: 1.) Will add ensure to all trays to encourage increased po intake for wound healing. MONITOR / EVAL: PO intake, labs, wounds, nutrition status. Continue to monitor per moderate nutrition risk guidelines.
[2016-10-07] MEDS: diphenhydrAMINE 25 mg Capsule PO PRN (13:07)
--- NOTE | 2016-10-07 13:35 | NUR ---
Social Work Continued Discharge Planning: SW met with patient at bedside to discuss discharge plan. Patient states residing in [facility] independently. Patient states having limited income and SSI at this time and has no available funds to pay for privately for SNF placement. Patient currently on Medicaid [place] at this time. SW contacted [facility] to confirm cost met for Medicaid [place]. Per rep bill must be submitted at discharge after costs met and patient will be active with Medicaid as of 09/28. SW requested submission of partial bill to assist with SNF placement, if [facility] unable to accept/no bed available. Patient in agreement to [facility] transfer for possible swing bed or [facility] for SNF placement under Medicaid. SW submitted a referral to [facility] for possible consideration under Medicaid. [facility] No swing bed available today. SW to follow tomorrow for possible bed. SW to follow. PLAN: [facility] swing bed, pending bed availability status vs SNF at [facility] under Medicaid. SW to follow. David MARTINEZ
--- NOTE | 2016-10-07 13:57 | PCM.PNMED ---
Subjective Date of Service Oct 07, 2016 Subjective Pain adequately controlled, patient more worried about she is going to manage radiation therapy and how she is healing. No complaints of chest pain, dyspnea , nausea or vomiting Exam Vital Signs Vital Sign - Last Date Time Temp Pulse Resp B/P Pulse Ox O2 Delivery O2 Flow Rate FiO2 10/07/16 07:21 36.9 74 20 107/63 94 Room Air 10/02/16 18:01 3.00 Intake and Output 10/06/16 10/06/16 10/07/16 Cumulative From/Thru 15:00 23:00 07:00 09/28/16 01:11 - 10/06/16 20:30 Intake Total 400 ml 85201 ml Output Total 1250 ml 35843 ml Balance -850 ml -103 ml Intake Oral 400 ml 66245 ml IV Total 6015 ml Output Urine Total 1250 ml 29724 ml Stool Total 1 ml Drainage Total 825 ml Estimated Blood Loss 100 ml # Bowel Movements 0 Exam Gen.- A+ O 3 no apparent distress. Thin female sitting up in bed Eyes- open conjunctiva clear, pupils equal nonicteric ENT- ears normal, nose normal Neck- supple/trach midline CVS-normal rate Lungs-normal rate no evidence of accessory muscle usage respiratory distress GI-flat, colostomy? LLQ pt changing/emptying Musc- moving 4, left leg in soft cast with wound VAC attached Neuro- cranial nerves II through XII intact to gross examination, nonfocal Skin- warm and dry, no rashes/lesions/wounds noted Psych- pleasant and appropriate, Lab and Diagnostics Result Diagram: 10/07/16 0510 10/07/16 0510 X-Rays, CTs and MRIs PROCEDURE: CT KNEE LEFT W/O CONTRAST (17672) INDICATIONS: tibial plateau fracture TECHNIQUE: Noncontrast 1-1.5 mm axial sections acquired from the mid-patella to the proximal tibia, with coronal and sagittal reformats. COMPARISON: [facility], CR, XR TIBIA FIBULA 2VW LT, 09/28/2016, 1: 24. FINDINGS: Image quality: Excellent. Bones: There is a comminuted moderately displaced fracture of the lateral tibial plateau, predominantly posteriorly with extension to the tibial spines anteriorly and posteriorly. There is mild angulation of the posterior aspect of the lateral tibial plateau, with roughly 3-4 mm of depression of the lateral tibial plateau. There is a mildly displaced comminuted fibular head fracture. Soft tissues: Soft tissue gas is present both medially and laterally, indicating an open fracture. A knee joint effusion is present. IMPRESSION: 1. Tibial plateau fracture as above. 2. Fibular head fracture. 3. Knee joint effusion. Dictated by: Lety Hartmann M.D. on 09/28/2016 at 9:30 Approved by: Lety Hartmann M.D. on 09/28/2016 at 9:33 Assessment & Plan 55year old female admitted 09/28 w/ L tibial plateau fx that cause compartment syndrome and required fasciotomy 09/28 her sister fell on her. She has done well had a wound VAC and will have that removed 10/07. Disposition is in question. Anemia- Hg 7.7 10/03, 9.9 10/05, 8.6 10/07 HTN, chronic- - Amlodipine 10mg daily, SBP 107-129 10/07 Stage III colorectal adenocarcinoma -- currently undergoing radiation therapy. Radiation oncologist is Dr. Bloivar ( ext 5) [place] [facility] to get a swing bed in [place] while working on placement so patient can continue to get XRT 10/07 - previously treated with neoadjuvant chemoradiation followed by APR and colostomy with additional chemotherapy with FULFOX LLExt Compartment Synd 10/02 tibial plateau fx- s/p left lower extremity fasciotomy on 09/28/2016.- on wound vac L lat tib plateau + Prox L fib head fx- further management per ortho + c/w supportive care Plan- management per primary ortho team "Weightbearing: Nonweightbearing on the lower left extremity. DVT prophylaxis: Lovenox 40 mg subcutaneous -10/14, aspirin 325 mg twice a day - No physical therapy regarding the left lower leg and no physical therapy for gait. Patient may perform right leg foot weight bearing and isometric exercises and may perform upper limb exercises in bed. Immobilization: Patient is to remain in straight leg brace and boot at all times. Patient is to have no range of motion to ankle or knee. Wound care: Vac dressing and STSG will be evaluated in 2/7 days as pt is not approved for home vac use, will be able to be d/c after likely next Wed peripheral neuropathy, chronic- - gabapentin 600mg TID + nortriptyline 10mg HS [employer] records indicate may be BID Anxiety and Depression, chronic- Effexor 225mg q day Hypothyroidism, chronic- Levothyroxine 88mcg daily stress incontinence, chronic- Tolterodine 2mg BID Prophylaxis-DVT, patient on Lovenox, GI not indicated Dispo- patient full code from home self-pay so placement is sort of an issue , working on swing bed at [facility] so patient can get radiation therapy through [employer]. GI Prophylaxis: H2 guero VTE Prophylaxis: Sub-Q Enoxaparin (40 mg subcutaneous daily.), SCDs (SCD and right lower extremity.) VTE Mechanical Devices: Intermittant Pneumatic CD Resuscitation Status: CPR: Attempt Resuscitation Noel Bourgeois MD Oct 07, 2016 13:57
[2016-10-07 14:03] VITALS: BP 136/70; PULSE 80; RESP 20; O2SAT 99
--- NOTE | 2016-10-07 15:15 | NUR ---
Pain/Dressing change P: Dressing change of graft site and two lower leg wounds, meri removed and wound vac DC'd. Pt premedicated with 2mg IV Morphine at start of dressing change which was effective for lower leg wounds. Pain severe, 10/10 pain on L upper leg graft site. I: Kaylie Sanchez PA-C at bedside ordering additional 2mg IV Morphine to complete dressing change. PO Percocet and Gabapentin given at this time as well. E: Pt reports medication was effective and is now much more comfortable for completion of dressing change.
--- NOTE | 2016-10-07 17:58 | NUR ---
Wound Pt seen at bedside with Dr Wu for removal of NPWT from skin graft at left lateral lower leg, graft is pink and adherent, minimal bleeding with dressing take down, redressed this area with a Tegaderm Ag mesh and then a 3 layer compression wrap. This dressing to remain in place till follow up in Dr Woods office in 1 week. Left thigh graft harvest site dressing changed, pt requiring multiple doses of pain medication (see nursing note) during dressing change, harvest site is approx 20 cm x 3 cm, cleaned with saline and redressed with a mepilex foam dressing covered and held in place with NPWT draping. Will recheck on this patient in am.
[2016-10-07 20:00] VITALS: BP 150/89; PULSE 81; RESP 20; O2SAT 100
[2016-10-08] MEDS: Sodium Chloride LOK Flush 10 mL Syringe IV SCH ×2 (00:58→09:13)
--- NOTE | 2016-10-08 03:52 | NUR ---
Pain Pt c/o left leg pain 02/07. Immobilizer in place and NWB status continues. Percocet given with good effect per pt. Denies n/v and gi upset. Will continue to monitor for discomfort.
[2016-10-08 04:14] VITALS: BP 131/77; PULSE 66; RESP 20; O2SAT 98
--- NOTE | 2016-10-08 07:34 | PCM.PNMED ---
Subjective Date of Service Oct 08, 2016 Exam Vital Signs Vital Sign - Last Date Time Temp Pulse Resp B/P Pulse Ox O2 Delivery O2 Flow Rate FiO2 10/08/16 04:14 36.5 66 20 131/77 98 Room Air 10/02/16 18:01 3.00 Intake and Output 10/07/16 10/07/16 10/08/16 Cumulative From/Thru 15:00 23:00 07:00 09/28/16 01:11 - 10/08/16 06:57 Intake Total 600 ml 1400 ml 800 ml 70778 ml Output Total 875 ml 775 ml 1050 ml 57217 ml Balance -275 ml 625 ml -250 ml -3 ml Intake Oral 600 ml 1400 ml 800 ml 12621 ml IV Total 0 ml 6015 ml Output Urine Total 875 ml 775 ml 1050 ml 08738 ml Stool Total 1 ml Drainage Total 825 ml Estimated Blood Loss 100 ml # Voids 2 2 4 # Bowel Movements 0 0 0 Lab and Diagnostics Result Diagram: 10/07/16 0510 10/07/16 0510 X-Rays, CTs and MRIs PROCEDURE: CT KNEE LEFT W/O CONTRAST (22680) INDICATIONS: tibial plateau fracture TECHNIQUE: Noncontrast 1-1.5 mm axial sections acquired from the mid-patella to the proximal tibia, with coronal and sagittal reformats. COMPARISON: [facility], CR, XR TIBIA FIBULA 2VW LT, 09/28/2016, 1: 24. FINDINGS: Image quality: Excellent. Bones: There is a comminuted moderately displaced fracture of the lateral tibial plateau, predominantly posteriorly with extension to the tibial spines anteriorly and posteriorly. There is mild angulation of the posterior aspect of the lateral tibial plateau, with roughly 3-4 mm of depression of the lateral tibial plateau. There is a mildly displaced comminuted fibular head fracture. Soft tissues: Soft tissue gas is present both medially and laterally, indicating an open fracture. A knee joint effusion is present. IMPRESSION: 1. Tibial plateau fracture as above. 2. Fibular head fracture. 3. Knee joint effusion. Dictated by: Lety Hartmann M.D. on 09/28/2016 at 9:30 Approved by: Lety Hartmann M.D. on 09/28/2016 at 9:33 Assessment & Plan 55year old female admitted 09/28 w/ L tibial plateau fx that cause compartment syndrome and required fasciotomy 09/28 her sister fell on her. She has done well had a wound VAC and will have that removed 10/07. Disposition is in question. Anemia- Hg 7.7 /, 9.9 10/05, 8.6 10/07 HTN, chronic- - Amlodipine 10mg daily, SBP 107-129 10/07 Stage III colorectal adenocarcinoma -- currently undergoing radiation therapy. Radiation oncologist is Dr. Bolivar ( ext 5) Jessica barrera to get a swing bed in [facility] while working on placement so patient can continue to get XRT 10/07 - previously treated with neoadjuvant chemoradiation followed by APR and colostomy with additional chemotherapy with FULFOX LLExt Compartment Synd 10/02 tibial plateau fx- s/p left lower extremity fasciotomy on 09/28/2016.- on wound vac L lat tib plateau + Prox L fib head fx- further management per ortho + c/w supportive care Plan- management per primary ortho team "Weightbearing: Nonweightbearing on the lower left extremity. DVT prophylaxis: Lovenox 40 mg subcutaneous -10/14, aspirin 325 mg twice a day - No physical therapy regarding the left lower leg and no physical therapy for gait. Patient may perform right leg foot weight bearing and isometric exercises and may perform upper limb exercises in bed. Immobilization: Patient is to remain in straight leg brace and boot at all times. Patient is to have no range of motion to ankle or knee. Wound care: Vac dressing and STSG will be evaluated in 10/07 days as pt is not approved for home vac use, will be able to be d/c after likely next Thu peripheral neuropathy, chronic- - gabapentin 600mg TID + nortriptyline 10mg HS [employer] records indicate may be BID Anxiety and Depression, chronic- Effexor 225mg q day Hypothyroidism, chronic- Levothyroxine 88mcg daily stress incontinence, chronic- Tolterodine 2mg BID Prophylaxis-DVT, patient on Lovenox, GI not indicated Dispo- patient full code from home self-pay so placement is sort of an issue , working on swing bed at [facility] so patient can get radiation therapy through [email or web address]. GI Prophylaxis: H2 guero VTE Prophylaxis: Sub-Q Enoxaparin (40 mg subcutaneous daily.), SCDs (SCD and right lower extremity.) VTE Mechanical Devices: Intermittant Pneumatic CD Resuscitation Status: CPR: Attempt Resuscitation Noel Bourgeois MD Oct 08, 2016 07:34
[2016-10-08] MEDS: Senna-Docusate 8.6-50 mg Tablet PO SCH (08:30)
[2016-10-08] MEDS: oxyCODONE-Acetamin 10-325 mg Tablet PO PRN (09:08)
[2016-10-08] MEDS: Tolterodine ER 2 mg ER24 Capsule PO SCH (09:11)
[2016-10-08] MEDS: Venlafaxine XR 75 mg ER24 Capsule PO SCH (09:11)
--- NOTE | 2016-10-08 09:27 | PCM.DIORTH ---
Ortho Discharge Instruction Date of Service: Oct 08, 2016 Dates of Hospitalization Date of Hospital Admission Sep 28, 2016 at 01:51 Providers Admitting Physician: Jomar Wu DO Primary Care Physician: Tatyana Rdoriguez Attending Physician: Jomar Wu DO Diet Discharge Diet: No restrictions Activity Right Lower Extremity: Weight Bearing as tolerated Left Lower Extremity: Non-weight Bearing (strict nonweightbearing on the left lower extremity and continuous 24 7 use of knee immobilizer and fracture walker. ) Discharge Assist Device: Front Wheeled Walker Dressing and Incisional Care Discharge Dressing Care: Keep dressing clean, dry & intact (do not change left lower extremity dressings. Contact Dr. Jomar Wu if concerns for dressing integrity..) Discharge Hygiene: No showering, DO NOT soak incision under water, NO bathtub, hot tub or whirlpool, Other (patient made a is necessary but left lower extremity dressing and immobilization should be kept clean dry and intact.) Additional Instructions Discharge Instructions Discharge instructions: 10/08/2016 Post admit day #10 and post operative day #6 from left tibial plateau fracture with resultant fasciotomy at presentation to the ED on 2016 with subsequent attempts at wound closure and ultimately a fascial closure with STSG and ORIF of the tibial plateau on 10/02/2016 with application of wound VAC. Wound VAC is discontinued at this time on 10/07/2016. Treatment has been performed by Dr. Jomar Wu. Strict nonweightbearing at the left lower extremity. Patient may perform limited weightbearing on the right lower extremity with maximum assist by physical therapy only. Mobility aid: Front wheeled walker. Knee immobilizer and fracture boot at left lower extremity must remaining in place 24/ with the exception of inspection for neurologic check at the left foot. Do not under any circumstances mobilize the patient with the left lower extremity unprotected by the above-mentioned imobilization. Physical therapy for bed mobility with right lower extremity isometrics and bilateral upper extremity range of motion and mobility. Left lower extremity should be left strictly undisturbed and immobilized. Patient may weight-bear as tolerated on the right lower extremity for limited ambulation with a front wheeled walker and with physical therapy assist. Right lower extremity dressings should NOT be changed and must remain in place until patient is seen at [facility] orthopedic clinic in follow-up on 2016. Current postoperative dressing must remain in place until seen in follow-up on 10/15/2016. Follow-up on 10/15/2016 at [facility] [place] [facility] with Dr. Jomar Wu for wound check with dressing change. Follow Up Plan Follow Up Plan Follow-up on 10/15/2016 at [facility] [place] [facility] with Dr. Jomar Wu for wound check and dressing change. Follow-up Provider (F9): Jomar Wu DO Mid-level Provider (F9): Amilcar Torres PA-C Follow-up appointment: Weeks (follow-up in 1 week on 10/15/2016 at [facility] [place] [facility] with Dr. Jomar Wu.) Call your provider for: Fever, Chills, Shortness of breath, Vomitting, Drainage at incision Krish Aguillon PA-C Oct 08, 2016 09:23
[2016-10-08] MEDS ORDERED: OXYC-466 PO (09:38)
[2016-10-08] MEDS ORDERED: MORP2SYR2 IVPUSH (09:38)
[2016-10-08] MEDS ORDERED: ENOX40DI8 SUBQ (09:38)
[2016-10-08] MEDS ORDERED: ASPI325T32 PO (09:38)
[2016-10-08] MEDS ORDERED: HYDR-3797 PO (09:38)
--- NOTE | 2016-10-08 09:41 | PCM.PNORTH ---
Subjective Date of Service: Oct 08, 2016 Visit Information: Reason for Visit Compartment Syndrome L Lower Leg Surgery/Surgery Date Post-Op Day # Date of Admission: Sep 28, 2016 at 01:51 Hospital Day # Subjective Palpation awake and alert this morning. No complaints of pain at this time. Patient does voice that she anticipates discharge today and is planning to go to a senior care facility. I have again discussed her positioning and the use of the boot and knee immobilizer with the patient and reinforced that these must stay on all times. She will follow up with Dr. Wu on 10/15/2016. Postop General: No Complaints, No Shortness of Breath, No Chest Pain, Good Appetite Pain Management: PO (by mouth pain medication in the form of Percocet 10/325 and Vistaril 25 mg as needed.), IV Push (IV EMS used most recently for wound VAC removal and complete dressing change yesterday onto 2016. This is not used as part of her routine daily medication.) Neurological: Weakness (patient states that she does have some residual weakness and numbness at the left lower extremity distally in her toes and foot. This seems to be somewhat variable in her account.), Tingling (patient states that she does have some residual anesthesia and paresthesia at the left lower extremity distally in the area of her toes and foot and that this is somewhat variable.), Confusion (patient does readily describe "chemo brain" secondary to her treatment with chemotherapy for CA.) Objective Exam Objective Orientation: Alert and oriented 3 and pleasant. Dressing: Dressing at left lower extremity remains in place with wound VAC having been removed on 10/07/2016. Knee immobilizer and fracture boot are in place and working to maintain the foot and ankle in neutral position and immobilized. Wound: Wound is not observed today. Compartments: Calf and thigh are soft and nontender. Mobility/sensation: Mobility and sensation are intact to left lower extremity distally but by patient's report are somewhat reduced. This has been consistent throughout her hospitalization. Skin of left foot is pink and warm. Abduction wedge: None VAL hose: None Mcpherson: None Wound VAC: None Drain: None Gait: None Vital Signs and I/O Vital Sign - Last Date Time Temp Pulse Resp B/P Pulse Ox O2 Delivery O2 Flow Rate FiO2 10/08/16 04:14 36.5 66 20 131/77 98 Room Air 10/02/16 18:01 3.00 Intake and Output 10/07/16 10/07/16 10/08/16 Cumulative From/Thru 15:00 23:00 07:00 09/28/16 01:11 - 10/08/16 06:57 Intake Total 600 ml 1400 ml 800 ml 07694 ml Output Total 875 ml 775 ml 1050 ml 29090 ml Balance -275 ml 625 ml -250 ml -3 ml Intake Oral 600 ml 1400 ml 800 ml 95444 ml IV Total 0 ml 6015 ml Output Urine Total 875 ml 775 ml 1050 ml 02570 ml Stool Total 1 ml Drainage Total 825 ml Estimated Blood Loss 100 ml # Voids 2 2 4 # Bowel Movements 0 0 0 Result Diagram: 10/07/16 0510 10/07/16 0510 General Appearance: Oriented X3, Cooperative, No Acute Distress Extremities: Thigh & Calf Soft/Nontender Postop Sensory Motor: Distal Motor Intact, Movement in Toes (to movement at the left lower extremity distally in the toes and foot is somewhat reduced by patient's report.), Distal Sensation Intact (sensation at left lower extremity in the area of the toes and foot is somewhat reduced by patient's report) SURGICAL WOUND : Drain Location Body Site: leg Incision General Appearance: Wound Vac Dressing & Drainage Status: Intact, Serosanguineous Drainage, No Odor, Purulent Drainage Noted Wound Drainage Type: Wound Vac Activity: Activity per PT (no physical therapy regarding the left lower leg and no physical therapy for gait. Patient may perform right leg foot weight bearing and isometric exercises and may perform upper limb exercises in bed.) Catheters: None Assessment & Plan Impression Patient is a 55-year-old female who is post admit day #10 from a left tibial plateau fracture with resultant fasciotomy at the time she presented in the ED. She has since undergone several debridements and wound VAC in an effort to close the fasciotomy which is closed at this time and wound VAC has been discontinued. A ST SG has been placed on 10/02/2016 and is in good condition at this time. Wound was last observed by Dr. Jomar Wu on 10/07/2016. Problems: Plan Post admit day #10 and post operative day #6 from left tibial plateau fracture with resultant fasciotomy at presentation to the ED on 09/28/2016 with subsequent attempts at wound closure and ultimately a fascial closure with STSG and ORIF of the tibial plateau on 10/02/2016 with application of wound VAC. Wound VAC is discontinued at this time on 10/07/2016. Treatment has been performed by Dr. Jomar Wu. Weight bearing status: Strict nonweightbearing at the left lower extremity. Patient may perform limited weightbearing on the right lower extremity with maximum assist by physical therapy only. Mobility aid: Front wheeled walker Immobilization: Knee immobilizer and fracture boot at left lower extremity must remaining in place with the exception of inspection for neurologic check at the left foot. Precautions: Do not under any circumstances mobilize the patient with the left lower extremity unprotected by the above-mentioned imobilization. Physical therapy: Physical therapy for bed mobility with right lower extremity isometrics and bilateral upper extremity range of motion and mobility. Left lower extremity should be left strictly undisturbed and immobilized. Patient may weight-bear as tolerated on the right lower extremity for limited ambulation with a front wheeled walker and with physical therapy assist. Pain control: By mouth pain medications in the form of Percocet 10/325mg, Vistaril 25 mg. MS IV 2 mg every 2 hours when necessary for procedural pain to be used when patient returns from follow-up on 10/15/2016 having undergone dressing changes which will likely produce increased pain. DVT prophylaxis: Continue Lovenox 40 mg subcutaneous daily for 7 days with transition to ASA 325 mg EC by mouth twice a day for an additional 4 weeks for DVT prophylaxis. Wound care: Right lower extremity dressings should NOT be changed and must remain in place until patient is seen at [facility] orthopedic clinic in follow-up on 10/15/2016. Infectious DZ: None Mcpherson: None Dressing: Current postoperative dressing must remain in place until seen in follow-up on 10/15/2016. Drain: None Abduction wedge: None VAL hose: None Nursing communication: Next follow-up: Follow-up on 10/15/2016 at [facility] orthopedic clinic with Dr. Jomar Wu for wound check with dressing change. Subsequent follow-up: TBD Plan: Patient will remain immobilized with dressings as determined by orthopedics until skin graft is determined to be healing. Patient will discharged today on 10/08/2016 to senior care facility. Discharge instructions: 10/08/2016 Post admit day #10 and post operative day #6 from left tibial plateau fracture with resultant fasciotomy at presentation to the ED on 2016 with subsequent attempts at wound closure and ultimately a fascial closure with STSG and ORIF of the tibial plateau on 10/02/2016 with application of wound VAC. Wound VAC is discontinued at this time on 10/07/2016. Treatment has been performed by Dr. Jomar Wu. Strict nonweightbearing at the left lower extremity. Patient may perform limited weightbearing on the right lower extremity with maximum assist by physical therapy only. Mobility aid: Front wheeled walker. Knee immobilizer and fracture boot at left lower extremity must remaining in place with the exception of inspection for neurologic check at the left foot. Do not under any circumstances mobilize the patient with the left lower extremity unprotected by the above-mentioned imobilization. Physical therapy for bed mobility with right lower extremity isometrics and bilateral upper extremity range of motion and mobility. Left lower extremity should be left strictly undisturbed and immobilized. Patient may weight-bear as tolerated on the right lower extremity for limited ambulation with a front wheeled walker and with physical therapy assist. Right lower extremity dressings should NOT be changed and must remain in place until patient is seen at [facility] orthopedic clinic in follow-up on 2016. Current postoperative dressing must remain in place until seen in follow-up on 10/15/2016. Follow-up on 10/15/2016 at [facility] orthopedic clinic with Dr. Jomar Wu for wound check with dressing change. Discharge plan: Anticipate discharge to senior care facility today on 03/2017. Plan Nursing may undo velcro over foot to take distal pulses. Weightbearing: Nonweightbearing on the lower left extremity. DVT prophylaxis: Lovenox 40 mg subcutaneous 2 weeks followed by aspirin EC 325 mg twice a day 4 weeks Physical therapy: No physical therapy regarding the left lower leg and no physical therapy for gait. Patient may perform right leg foot weight bearing and isometric exercises and may perform upper limb exercises in bed. Immobilization: Patient is to remain in straight leg brace and boot at all times. Patient is to have no range of motion to ankle or knee. Wound care: Vac dressing and STSG will be evaluated today by wound care and Dr. Wu together. Analgesia: Continue oral pain management Discharge plan: Discharge to SNF tomorrow, pending assessment of wound by Dr. Wu this afternoon VTE Prophylaxis: Sub-Q Enoxaparin (40 mg subcutaneous daily should be continued for 1 more week from this date with transition to ASA 325 mg EC by mouth twice a day for an additional 4 weeks DVT prophylaxis post Lovenox discontinuance.), SCDs (SCD and right lower extremity.) Resuscitation Status: CPR: Attempt Resuscitation Krish Aguillon PA-C Oct 08, 2016 09:00
[2016-10-08] MEDS: 0.9% Sodium Chloride 1,000 ML IV SCH (10:07)
--- NOTE | 2016-10-08 10:59 | PCM.DC.ORT ---
Discharge Summary Date of Service: Oct 08, 2016 Date of Hospital Admission: Sep 28, 2016 at 01:51 Date of Surgery: Oct 02, 2016 Date of Discharge: Oct 08, 2016 Reason for Hospitalization: Left tibial plateau fracture with resultant compartment syndrome. Procedures Performed: Left lower extremity fasciotomy with vacuum-assisted wound closure and STSG and ORIF of left tibial plateau fracture. Hospital Course: Patient was admitted to the hospital on 09/28/2016 through the emergency room. She was consult by Dr. Jomar Wu and ultimately underwent a left lower extremity fasciotomy for compartment syndrome monitoring urgent basis. Patient was then returned to the operating room on 2 additional occasions for attempts at wound closure which were unsuccessful secondary to swelling. Patient is well underwent wound VAC assist for this process. Patient ultimately underwent a split thickness skin graft with wound closure and ORIF of the proximal tibia on 10/02/2016. Patient was then discharged to fdc facility on 10/08. Problems: (1) Closed fracture of lateral portion of left tibial plateau Status: Acute ICD Code: S82.142A (2) Compartment syndrome of left lower extremity Qualifiers: Encounter type: initial encounter Qualified Code: T79.A22A - Traumatic compartment syndrome of left lower extremity, initial encounter Status: Acute ICD Code: T79.A22A Disposition: Discharge to fdc facility on 10/08/2016. Orthopedic Follow up Plan: In One Week in my clinic (follow-up in 1 week [facility] orthopedic clinic on 10/15/[address] Jomar Wu.) Discharge Instructions: Discharge instructions: 10/08/2016 Post admit day #10 and post operative day #6 from left tibial plateau fracture with resultant fasciotomy at presentation to the ED on 2016 with subsequent attempts at wound closure and ultimately a fascial closure with STSG and ORIF of the tibial plateau on 10/02/2016 with application of wound VAC. Wound VAC is discontinued at this time on 10/07/2016. Treatment has been performed by Dr. Jomar Wu. Strict nonweightbearing at the left lower extremity. Patient may perform limited weightbearing on the right lower extremity with maximum assist by physical therapy only. Mobility aid: Front wheeled walker. Knee immobilizer and fracture boot at left lower extremity must remaining in place with the exception of inspection for neurologic check at the left foot. Do not under any circumstances mobilize the patient with the left lower extremity unprotected by the above-mentioned imobilization. Physical therapy for bed mobility with right lower extremity isometrics and bilateral upper extremity range of motion and mobility. Left lower extremity should be left strictly undisturbed and immobilized. Patient may weight-bear as tolerated on the right lower extremity for limited ambulation with a front wheeled walker and with physical therapy assist. Right lower extremity dressings should NOT be changed and must remain in place until patient is seen at [facility] orthopedic clinic in follow-up on 2016. Current postoperative dressing must remain in place until seen in follow-up on 10/15/2016. Follow-up on 10/15/2016 at [facility] orthopedic clinic with Dr. Jomar Wu for wound check with dressing change. Management Plan: Patient will be seen in 1 week [facility] orthopedic clinic on 10/15/2016 for wound check and dressing change. Future visits will be determined at that time. Amlodipine (Amlodipine) 5 Mg Tablet 5 MG PO DAILY Aspirin (Aspirin) 325 Mg Tablet 325 MG PO BID Begin ASA 325 mg EC by mouth twice a day 28 days on 10/16/2016 post Lovenox course completion. Clonazepam ODT (Clonazepam ODT) 1 Mg Tablet 1-2 MG PO HS PRN PRN For Anxiety Enoxaparin Sodium (Enoxaparin Sodium) 40 Mg/0.4 Ml Syringe 40 MG SUBQ DAILY Lovenox 40 mg subQ daily for 7 days from 10/08/2016. Switch to ASA 325 mg EC PO bid for additional 4 wks. Hydroxyzine Pamoate (HydrOXYzine Pamoate) 25 Mg Capsule 25 MG PO Q4H PRN PRN For Spasm and/or Restlessness Levothyroxine (Levoxyl) 88 Mcg Tablet 88 MCG PO DAILY Morphine Sulfate (Morphine Sulfate) 2 Mg/Ml Syr 1-2 MG IVPUSH Q2H PRN PRN For Severe Pain To be used for postprocedural pain after dressing change occurring on 2016. Venlafaxine ER (Venlafaxine ER) 37.5 Mg Cap.er.24h 225 MG PO BID oxyCODONE-Acetaminophen 10-325 mg (oxyCODONE-Acetaminophen 10-325 mg) 1 Each Tablet 1-2 TAB PO Q6H PRN PRN For Pain Krish Aguillon PA-C 8, 2017 10:59
--- NOTE | 2016-10-08 11:37 | NUR ---
Wound Care Pt seen at bedside for skin graft harvest site dressing change. Foam removed from site, no bleeding today and no complaint of pain with dressing change. Cleaned site with saline and then redressed with a xeroform dressing over open area. (Recommend that this xeroform be left in place until harvest site is 100% healed, loose edges can be trimmed) covered this with a mepilex foam and held in place with NPWT draping material. If patient is discharged this dressing can remain in place until appt with Dr Wu, same holds true for lower leg dressing also.
--- NOTE | 2016-10-08 12:15 | PCM.PNMED ---
Subjective Date of Service Oct 08, 2016 Subjective Patient discharged by orthopedics. She is medically stable. No complaints of chest pain, dyspnea or nausea and vomiting. Wound VAC came up yesterday without significant event. Exam Vital Signs Vital Sign - Last Date Time Temp Pulse Resp B/P Pulse Ox O2 Delivery O2 Flow Rate FiO2 10/08/16 04:14 36.5 66 20 131/77 98 Room Air 10/02/16 18:01 3.00 Intake and Output 10/07/16 10/07/16 10/08/16 Cumulative From/Thru 14:59 22:59 06:59 09/28/16 01:11 - 10/08/16 06:57 Intake Total 600 ml 1400 ml 800 ml 30068 ml Output Total 875 ml 775 ml 1050 ml 35033 ml Balance -275 ml 625 ml -250 ml -3 ml Intake Oral 600 ml 1400 ml 800 ml 61466 ml IV Total 0 ml 6015 ml Output Urine Total 875 ml 775 ml 1050 ml 17138 ml Stool Total 1 ml Drainage Total 825 ml Estimated Blood Loss 100 ml # Voids 2 2 4 # Bowel Movements 0 0 0 Exam Gen.- A+ O 3 no apparent distress. Thin female sitting up in bed Eyes- open conjunctiva clear, pupils equal nonicteric ENT- ears normal, nose normal Neck- supple/trach midline CVS-normal rate Lungs-normal rate no evidence of accessory muscle usage respiratory distress GI-flat, llq ostomy pink and looks healthy Musc- moving 4, left leg in soft cast Neuro- cranial nerves II through XII intact to gross examination, nonfocal Skin- warm and dry, no rashes/lesions/wounds noted Psych- pleasant and appropriate, Lab and Diagnostics Result Diagram: 10/07/16 0510 10/07/16 0510 X-Rays, CTs and MRIs PROCEDURE: CT KNEE LEFT W/O CONTRAST ([id number]) INDICATIONS: tibial plateau fracture TECHNIQUE: Noncontrast 1-1.5 mm axial sections acquired from the mid-patella to the proximal tibia, with coronal and sagittal reformats. COMPARISON: [facility], CR, XR TIBIA FIBULA 2VW LT, 09/28/2016, 1: 24. FINDINGS: Image quality: Excellent. Bones: There is a comminuted moderately displaced fracture of the lateral tibial plateau, predominantly posteriorly with extension to the tibial spines anteriorly and posteriorly. There is mild angulation of the posterior aspect of the lateral tibial plateau, with roughly 3-4 mm of depression of the lateral tibial plateau. There is a mildly displaced comminuted fibular head fracture. Soft tissues: Soft tissue gas is present both medially and laterally, indicating an open fracture. A knee joint effusion is present. IMPRESSION: 1. Tibial plateau fracture as above. 2. Fibular head fracture. 3. Knee joint effusion. Dictated by: Lety Hartmann M.D. on 09/28/2016 at 9:30 Approved by: Lety Hartmann M.D. on 09/28/2016 at 9:33 Assessment & Plan 55year old female admitted 09/28 w/ L tibial plateau fx that cause compartment syndrome and required fasciotomy 09/28 her sister fell on her. Patient has remained stable from medical standpoint. She is cleared by orthopedics and is being discharged to apparently a [facility] swing bed so that she can continue to receive radiation therapy through the [facility] [place] [facility]. Anemia- Hg 7.7 10/03, 9.9 10/05, 8.6 10/07 HTN, chronic- - Amlodipine 10mg daily, SBP 107-129 10/07, 137-150 10/08 Stage III colorectal adenocarcinoma -- currently undergoing radiation therapy. Radiation oncologist is Dr. Bolivar ( ext 5) [place] ride to get a swing bed in general while working on placement so patient can continue to get XRT 10/07 - previously treated with neoadjuvant chemoradiation followed by APR and colostomy with additional chemotherapy with FULFOX LLExt Compartment Synd 2/2 tibial plateau fx- s/p left lower extremity fasciotomy on 09/28/2016.- on wound vac L lat tib plateau + Prox L fib head fx- further management per ortho + c/w supportive care Plan- management per primary ortho team "Weightbearing: Nonweightbearing on the lower left extremity. DVT prophylaxis: Lovenox 40 mg subcutaneous -10/14, aspirin 325 mg twice a day - No physical therapy regarding the left lower leg and no physical therapy for gait. Patient may perform right leg foot weight bearing and isometric exercises and may perform upper limb exercises in bed. Immobilization: Patient is to remain in straight leg brace and boot at all times. Patient is to have no range of motion to ankle or knee. Wound care: Vac dressing and STSG will be evaluated in 2/7 days as pt is not approved for home vac use, will be able to be d/c after likely next Wed peripheral neuropathy, chronic- - gabapentin 600mg TID + nortriptyline 10mg HS [facility] records indicate may be BID Anxiety and Depression, chronic- Effexor 225mg q day Hypothyroidism, chronic- Levothyroxine 88mcg daily stress incontinence, chronic- Tolterodine 2mg BID Prophylaxis-DVT, patient on Lovenox, GI not indicated Dispo- patient full code from home self-pay so placement is sort of an issue , working on swing bed at [facility] so patient can get radiation therapy through [facility]. She is Medicaid pending as of 10/08 GI Prophylaxis: H2 guero VTE Prophylaxis: Sub-Q Enoxaparin (40 mg subcutaneous daily should be continued for 1 more week from this date with transition to ASA 325 mg EC by mouth twice a day for an additional 4 weeks DVT prophylaxis post Lovenox discontinuance.), SCDs (SCD and right lower extremity.) VTE Mechanical Devices: Intermittant Pneumatic CD Resuscitation Status: CPR: Attempt Resuscitation Noel Bourgeois MD Oct 08, 2016 12:14
[2016-10-08] MEDS: hydrOXYzine Pamoate 25 mg Capsule PO PRN (12:40)
--- NOTE | 2016-10-08 13:25 | NUR ---
Faxed orders and clinicals to [facility] [place] per [employer] SUPERVISOR
--- NOTE | 2016-10-08 13:45 | NUR ---
Social Work Discharge: Orders for discharge acknowledged. SRAVAN spoke to rep [phone] who states that patient accepted to [facility] swing bed today. SW requested that UR specialist coordinate transport to facility today and fax discharge paperwork to facility F. [phone]. Discharge packet arranged and PASSR completed per request. Patient aware and in agreement. SW to follow as further needs arise. SW to follow. PLAN: Transfer to [facility] swing bed today David MARTINEZ
[2016-10-08 13:50] VITALS: BP 126/88; PULSE 81; RESP 18; O2SAT 100
[2016-10-08 13:59] VITALS: BP 143/67; PULSE 88; RESP 18; O2SAT 100
--- NOTE | 2016-10-08 14:42 | NUR ---
Arranged Care Porfirio Hopkins for transport to [facility]. Waiting on time confirmation, spoke with MICHELLE broadcast supervisor and we will cover this transport cost. Updated MICHELLE Addendum: 10/08/16 at 1454 by DANYEL EVANS CM Care E will transport at 0475
--- NOTE | 2016-10-08 14:54 | NUR ---
Discharge Pt transferring to swing bed at [facility] via cabulance at 1515. Report called to ANTONIO Tong prior to transport. Pt understand care plan and activity instructions/restrictions, wound care plan and pain regiment. Given 2mg IV Morphine prior to PIV removal and transport. Pt has all of her personal belongings as well as additional dressing change supplies left by Wound Care. Ortho extremity is warm to the touch and pt wiggles toes.
== END 2016-10-08 15:25 | DRG 464 ==
LOC: SED 01:03 → OSC 01:51
PROVIDERS: ADMIT Orthopaedic Surgery; ATTEND Orthopaedic Surgery
PROC: 0KNT0ZZ Release Left Lower Leg Muscle, Open Approach (ICD-10-PCS; principal; 2016-09-28 01:55)
PROC: 0JDP0ZZ Extraction of Left Lower Leg Subcutaneous Tissue and Fascia, Open Approach (ICD-10-PCS; 2016-09-30)
PROC: 0HBLXZZ Excision of Left Lower Leg Skin, External Approach (ICD-10-PCS; 2016-10-03)
PROC: 0QSH04Z Reposition Left Tibia with Internal Fixation Device, Open Approach (ICD-10-PCS; 2016-10-03)
PROC: 0HRLX74 Replacement of Left Lower Leg Skin with Autologous Tissue Substitute, Partial Thickness, External Approach (ICD-10-PCS; 2016-10-03)
DX: S82.142A Displaced bicondylar fracture of left tibia, initial encounter for closed fracture (principal); T79.A22A Traumatic compartment syndrome of left lower extremity, initial encounter; C19 Malignant neoplasm of rectosigmoid junction; G62.9 Polyneuropathy, unspecified; W19.XXXA Unspecified fall, initial encounter; I10 Essential (primary) hypertension; Z93.3 Colostomy status; F17.200 Nicotine dependence, unspecified, uncomplicated; F32.9 Major depressive disorder, single episode, unspecified; F41.9 Anxiety disorder, unspecified; N39.3 Stress incontinence (female) (male); E03.9 Hypothyroidism, unspecified; S82.832A Other fracture of upper and lower end of left fibula, initial encounter for closed fracture; D50.9 Iron deficiency anemia, unspecified